=== PATIENT | female | born 1965 | race Caucasian/White ===

== ENCOUNTER 2019-10-30 11:37 | Emergency (ER) | payer OTHER, SELFPAY ==
--- NOTE | ~2019-10-30 | XR_ITS ---
XR chest 1V portable DATE: 10/30/2019 12:34 INDICATION: Lower extremity swelling TECHNIQUE: Portable upright AP chest on 10/30/2019 at 1225 hours COMPARISON: None FINDINGS: Normal heart size. No hilar or mediastinal enlargement. Bilateral hyperinflation. No pulmon dhiraj infiltrate or consolidation, pleural effusion or pulmonary vascular congestion or pneumothorax. Diffuse osteopenia IMPRESSION: Bilateral hyperinflation; no active cardiopulmonary disease Reviewed, dictated and finalized at location B. [employer]
[2019-10-30 11:38] VITALS: BP 114/62; PULSE 83; RESP 18; TEMP 36.3; O2SAT 100
[2019-10-30 12:46] LABS: Basophils Absolute Auto 0.1 K/mm3 (0.0-0.1); Basophils Percent Auto 0.9 % (0.2-1.2); Eosinophils Absolute Auto 0.2 K/mm3 (0-0.3); Hematocrit 38.9 % (37.0-47.0); Hemoglobin 12.7 g/dL (12.0-15.0); Immature Granulocyte Absolute 0.02 K/mm3 (0.00-0.031); Immature Granulocyte Percent A 0.3 % (0-0.5); Lymphocytes Absolute Auto 2.48 K/mm3 (0.9-3.2); Lymphocytes Percent Auto 35.5 % (18.3-44.2); Mean Corpuscular HGB Conc 32.6 g/dl (32-36); Mean Corpuscular Hemoglobin 30.5 pg (26-34); Mean Corpuscular Volume 93.3 fl (80-100); Mean Platelet Volume 10.4 fl (7.4-10.4); Monocytes Absolute Auto 0.5 K/mm3 (0.1-0.6); Monocytes Percent Auto 6.4 % (2.6-8.5); Neutrophils Absolute Auto 3.8 K/mm3 (1.3-6.7); Neutrophils Percent Auto 53.9 % (45.5-73.1); Platelet Count Result 343 k/mm3 (150-375); Red Blood Count 4.17 M/mm3 (4.2-5.4); Red Cell Distribution Width 13.2 % (11.5-14.5)
[2019-10-30 12:57] LABS: Alanine Aminotransferase 13 U/L (4-35); Albumin Level 4.5 g/dL (3.5-5.1); Alkaline Phosphatase 130 U/L (38-126); Aspartate Amino Transferase 18 U/L (14-36); Bilirubin,Total 0.2 mg/dL (0.2-1.3); Blood Urea Nitrogen 10 mg/dL (7-17); Calcium 9.5 mg/dL (8.4-10.2); Carbon Dioxide 25 mmol/L (22-30); Chloride 102 mmol/L (98-107); Estimated CRCL calculation 62 ml/min; Estimated Glomerular Filt Rate > 60; Glucose 90 mg/dL (65-105); Potassium 3.8 mmol/L (3.4-5.0); Sodium 137 mmol/L (137-145)
[2019-10-30 13:06] LABS: NT Pro B Type Natriuretic Pept 250 PG/ML (5-100)
[2019-10-30] MEDS: KETOROLAC (*BKC) 60 MG/2 ML VIAL 30 MG IM (13:30)
--- NOTE | 2019-10-30 14:21 | ED.EXTPRO ---
HPI - Extremity Problem General Chief complaint: Extremity Problem,Nontraumatic Stated complaint: feet swollen Time Seen by Provider: 10/30/19 12:14 Source: patient Mode of arrival: ambulatory Limitations: no limitations History of Present Illness HPI Narrative: Patient presents with chief complaint of bilateral intermittent lower leg swelling over the past 3 weeks. Patient states that she also feels a burning sensation in her legs and feet. Patient reports she has fibromyalgia and neuropathy in her lower extremities. Patient states her father is on hospice so she has been under a lot of stress in the hospital with him the past few days. Patient states she has been prescribed duloxetine but has not noticed an improvement in her neuropathic discomfort. Patient states she needs something to help with the pain. Patient denies chest pain or dyspnea. Patient smokes cigarettes and marijuana daily. Patient denies other recreational drug use. Related Data Home Medications Medication Instructions Recorded Confirmed atorvastatin 10/30/19 duloxetine mg PO 10/30/19 duloxetine mg PO 10/30/19 omeprazole 10/30/19 quetiapine 10/30/19 Allergies Allergy/AdvReac Type Severity Reaction Status Date / Time Sulfa (Sulfonamide Allergy Unknown Unverified 02/22/17 19:31 Antibiotics) Review of Systems Review of Systems: Narrative: CONSTITUTIONAL: Denies fever, chills, or sweats. EYES: Denies visual changes, redness, or discharge. ENT: Denies rhinorrhea, congestion, sore throat, or otalgia. CARDIOVASCULAR: Denies chest pain, palpitations, or edema. RESPIRATORY: Denies cough or dyspnea. GASTROINTESTINAL: Denies abdominal pain, nausea, vomiting, or diarrhea. GENITOURINARY: Denies dysuria or hematuria. SKIN: Denies rash or itching. MUSCULOSKELETAL: Reports edema and lower extremity pain denies back pain, joint pain, or myalgia. NEUROLOGIC: Denies headache, numbness, dizziness, or weakness. PSYCHIATRIC: Denies anxiety or depression. Exam Narrative: Exam Narrative: GENERAL: Well-appearing, well-nourished, and in no acute distress. HEAD: Normocephalic, atraumatic. EYES: PERRLA and EOMI. ENT: Nares clear, no rhinorrhea or epistaxis. Mucous membranes moist. Oropharynx without tonsillar hypertrophy exudate or other lesions. Bilateral TMs pearly mercer nonbulging NECK: Supple. No adenopathy or masses. No carotid bruits or JVD CHEST: Clear to auscultation. No respiratory distress. No wheezes rales or rhonchi HEART: Regular rate and rhythm. No murmur heard. Normal peripheral pulses. EXTREMITIES: Normal range of motion. Minimal edema noted bilaterally to feet.feet diffusely tender to palpation. There is no erythema, ecchymosis, pitting. SKIN: Warm, dry, no rash. NEURO: No focal deficits. Alert and oriented x3. PSYCH: Normal mood and affect. Course Vital Signs Vital signs: Vital Signs Temperature 97.3 F L 10/30/19 11:38 Pulse Rate 83 10/30/19 11:38 Respiratory Rate 18 10/30/19 11:38 Blood Pressure 114/62 10/30/19 11:38 Pulse Oximetry 100 10/30/19 11:38 Temperature 97.3 F L 10/30/19 11:38 Pulse Rate 83 10/30/19 11:38 Respiratory Rate 18 10/30/19 11:38 Blood Pressure 114/62 10/30/19 11:38 Pulse Oximetry 100 10/30/19 11:38 MDM - Extremity (Nontraumatic) MDM Narrative Medical decision making narrative: Patient's x-ray and physical exam does not point to acute CHF. Patient given Toradol for pain control. Patient is taking duloxetine for neuropathic pain instructed her to discuss with her primary care provider alternate chronic pain medication options. Patient instructed to wear compression stockings and elevate extremities. Patient verbalized understanding agreement states that she is ready to be discharged home at this time as she would like to go back to see her father. Lab Data Result diagrams: 10/30/19 12:35 10/30/19 12:36 Labs: Lab Results 10/30/19 10/30/19
== END 2019-10-30 14:35 | disposition home or self-care (01) ==
PROVIDERS: Physician Assistant; Emergency Provider Emergency Medicine
DX: R60.0 Localized edema (principal); G62.9 Polyneuropathy, unspecified; M79.7 Fibromyalgia
CPT/HCPCS: 36415; 71045; 80053; 83880; 85025; 96372; 99283; J1885

== ENCOUNTER 2020-09-03 12:12 | Emergency (ER) | payer OTHER, SELFPAY ==
--- NOTE | ~2020-09-03 | CT_ITS ---
EXAMINATION: CT abdomen pelvis w con DATE: 09/03/2020 14:43 INDICATION: Abdominal and epigastric pain, nausea, vomiting and diarrhea TECHNIQUE: Computed tomography (CT) of the abdomen and pelvis was performed with 100 mL Omnipaque-350 intravenous contrast. Automated exposure control and iterative reconstruction technique were employe d. The dose-length product was 216.36 mGy-cm. COMPARISON: None FINDINGS: Lung bases are clear. Heart size is normal. No pericardial or pleural effusion. Mild wall thickening at the gastric antrum which could be due to incomplete distention, gastritis or peptic ulcer disease. There is no surrounding inflammatory stranding. 1.3 cm cyst in the left hepatic lobe. Focal hepatic steatosis at the ligamentum teres. Small region of minimal wall thickening at the fundus of the gallb ladder most likely focal adenomyomatosis. Spleen, pancreas, bilateral adrenal glands and kidneys are normal. Normal appendix. No bowel obstruction. Bladder and anteverted uterus are normal. No free intr aperitoneal gas or fluid. No pathologically enlarged abdominal or pelvic lymphadenopathy. There is ca lcified atherosclerosis of the aorta and many of the other arteries. Bone island at the left superior pubic ramus. IMPRESSION: 1. Mild wall thickening at the gastric antrum which could be due to underdistention, gastritis or pep tic ulcer disease. Reviewed, dictated and finalized at location A. [employer] IMPRESSION: 1. Mild wall thickening at the gastric antrum which could be due to underdisten tion, gastritis or peptic ulcer disease.
[2020-09-03 12:15] VITALS: BP 104/39; PULSE 83; RESP 18; TEMP 36.8; O2SAT 100
[2020-09-03 12:55] LABS: Basophils Percent Auto 0.4 % (0.2-1.2); Eosinophils Percent Auto 0.1 % (0-4.4); Hematocrit 47.3 % (37.0-47.0); Hemoglobin 15.7 g/dL (12.0-15.0); Immature Granulocyte Absolute 0.03 K/mm3 (0.00-0.031); Immature Granulocyte Percent A 0.3 % (0-0.5); Lymphocytes Absolute Auto 1.47 K/mm3 (0.9-3.2); Lymphocytes Percent Auto 14.6 % (18.3-44.2); Mean Corpuscular HGB Conc 33.2 g/dl (32-36); Mean Corpuscular Hemoglobin 30.5 pg (26-34); Mean Platelet Volume 10.6 fl (7.4-10.4); Monocytes Absolute Auto 0.2 K/mm3 (0.1-0.6); Monocytes Percent Auto 2.2 % (2.6-8.5); Neutrophils Absolute Auto 8.3 K/mm3 (1.3-6.7); Neutrophils Percent Auto 82.4 % (45.5-73.1); Platelet Count Result 345 k/mm3 (150-375); Red Blood Count 5.14 M/mm3 (4.2-5.4); Red Cell Distribution Width 13.2 % (11.5-14.5); White Blood Count 10.1 K/mm3 (4.5-10.0)
[2020-09-03 12:59] LABS: Add Urine Microscopic? YES; Appearance Urine Clear (Clear); Bilirubin Urine 1+ (Negative); Blood Urine Negative (Negative); Color Urine Amber (Yellow); Glucose Urine UA Negative (Negative); Hyaline Casts Urine 15-19 /lpf; Ketones Urine Trace mg/dL (Negative); Leukocyte Esterase Ur 1+ LEU/UL (Negative); Mucus Urine Heavy /lpf; Nitrate Urine Negative (Negative); Protein Urine 2+ mg/dL (Negative); Specific Grav Ur 1.021 (1.001-1.035); Squamous Epithelial Cell Urine Many /hpf (Few); WBC Urine 0-3 /hpf
[2020-09-03 13:06] LABS: Alanine Aminotransferase 18 U/L (4-35); Albumin Level 4.7 g/dL (3.5-5.1); Alkaline Phosphatase 181 U/L (38-126); Anion Gap 8 mmol/L (8-16); Aspartate Amino Transferase 27 U/L (14-36); Bilirubin,Total 0.4 mg/dL (0.2-1.3); Blood Urea Nitrogen 10 mg/dL (7-17); Calcium 9.9 mg/dL (8.4-10.2); Carbon Dioxide 29 mmol/L (22-30); Chloride 103 mmol/L (98-107); Estimated CRCL calculation 52 ml/min; Estimated Glomerular Filt Rate > 60; Glucose 129 mg/dL (65-105); Lipase 58 U/L (23-300); Potassium 3.9 mmol/L (3.4-5.0); Sodium 140 mmol/L (137-145)
--- NOTE | 2020-09-03 13:26 | ED.NAVMDI ---
HPI - Nausea/Vomiting/Diarrhea General Chief complaint: Nausea/Vomiting/Diarrhea Stated complaint: vomiting and diarrhea Time Seen by Provider: 09/03/20 13:25 Source: patient Mode of arrival: ambulatory Limitations: no limitations History of Present Illness HPI Narrative: Patient is a 55-year-old female with a history of peptic ulcer disease who presents for evaluation of abdominal pain. Abdominal pain is located in the epigastrium, associated with vomiting that has some blood present in it. Pain is sharp, burning in nature. Patient denies fever, chills, shortness of breath. Mild rhinorrhea and cough over the past several weeks. No diarrhea or dark or tarry stools. Patient has not had any issues with her peptic ulcers in quite some time. She does not currently follow with a direct support specialist. Related Data Home Medications Medication Instructions Recorded Confirmed atorvastatin 10/30/19 duloxetine mg PO 10/30/19 duloxetine mg PO 10/30/19 omeprazole 10/30/19 quetiapine 10/30/19 clonazepam 09/03/20 09/03/20 Allergies Allergy/AdvReac Type Severity Reaction Status Date / Time Sulfa (Sulfonamide Allergy Unknown Unknown Verified 09/03/20 15:17 Antibiotics) Review of Systems Review of Systems: Narrative: CONSTITUTIONAL: Denies fever, chills, or sweats. ENT: Reports mild rhinorrhea and congestion CARDIOVASCULAR: Denies chest pain, palpitations, or edema. RESPIRATORY: Reports dry cough without shortness of breath GASTROINTESTINAL: Reports upper abdominal pain, nausea and vomiting without diarrhea. GENITOURINARY: Denies dysuria or hematuria. SKIN: Denies rash or itching. MUSCULOSKELETAL: Denies back pain, joint pain, or myalgia. NEUROLOGIC: Denies headache, numbness, or weakness. [facility] Past Medical History Medical History Acid reflux Arthritis Depression Fibromyalgia Hyperlipidemia Peptic ulcer disease Rheumatoid arthritis Surgical History Surgical History (Updated 09/03/20 @ 14:19 by Anna Miller MD) H/O section Social History Social History (Updated 09/03/20 @ 14:20 by Anna Miller MD) Smoking status: Current every day smoker Tobacco type: cigarettes Alcohol intake: never Substance use: current Substance use type: marijuana Gender identity (if verbalized by the patient): Female Exam Narrative: Exam Narrative: GENERAL: Awake, alert, conversant, mildly uncomfortable appearing HEAD: Normocephalic, atraumatic. EYES: PERRLA and EOMI. ENT: Nares clear, no rhinorrhea or epistaxis. Mucous membranes dry. NECK: Supple. CHEST: No respiratory distress, breathing even and non labored HEART: Regular rate, sinus rhythm ABDOMEN:Non distended, mild tenderness in the epigastrium without rebound, rigidity or guarding, no other tenderness noted on exam EXTREMITIES: Normal range of motion. No edema. SKIN: Warm, dry, no rash. NEURO:No focal deficits. Alert and oriented x3 Course Vital Signs Vital signs: Vital Signs Temperature 36.8 C 09/03/20 12:15 Pulse Rate 83 09/03/20 12:15 Respiratory Rate 18 09/03/20 12:15 Blood Pressure 104/39 L 09/03/20 12:15 Pulse Oximetry 100 09/03/20 12:15 Temperature 36.8 C 09/03/20 12:15 Pulse Rate 83 09/03/20 12:15 Respiratory Rate 18 09/03/20 12:15 Blood Pressure 104/39 L 09/03/20 12:15 Pulse Oximetry 100 09/03/20 12:15 MDM - Nausea/Vomiting/Diarrhea MDM Narrative Medical decision making narrative: Patient presented for evaluation of upper abdominal pain. He has a history of peptic ulcer disease, she states that this seems similar. She appears slightly dehydrated. Vital signs stable, ABCs intact. Laboratory results notable for hemoconcentration, no severe leukocytosis or severe anemia that be suggestive of gross hemorrhagic GI bleed. Patient with hypokalemia which were able to replenish orally following ministration of IV fluids and antie
[2020-09-03] MEDS: SODIUM CHLORIDE 0.9% IV 1,000 ML 999 ML IV CONT ×2 (14:52)
[2020-09-03] MEDS: MORPHINE SULFATE (*CRX) 4 MG/ML INJ IV PUSH (14:52)
[2020-09-03] MEDS: METOCLOPRAMIDE HCL INJ 10 MG/2 ML VIAL IV PUSH (14:52)
[2020-09-03 16:04] VITALS: BP 118/68; PULSE 78; RESP 16; O2SAT 97
== END 2020-09-03 16:05 | disposition home or self-care (01) ==
PROVIDERS: Emergency Provider Emergency Medicine
DX: K27.9 Peptic ulcer, site unspecified, unspecified as acute or chronic, without hemorrhage or perforation (principal); E86.0 Dehydration; E87.6 Hypokalemia; K21.9 Gastro-esophageal reflux disease without esophagitis; M19.90 Unspecified osteoarthritis, unspecified site; M79.7 Fibromyalgia; F32.9 Major depressive disorder, single episode, unspecified; E78.5 Hyperlipidemia, unspecified; M06.80 Other specified rheumatoid arthritis, unspecified site; F17.210 Nicotine dependence, cigarettes, uncomplicated
CPT/HCPCS: 36415; 74177; 80053; 81001; 81025; 83690; 85025; 96374; 96375; 99284; J2270; J2765; J7030; Q9967

== ENCOUNTER → 2021-12-15 01:33 | Outpatient (CLI) | payer OTHER, SELFPAY ==
[2021-12-15 11:55] LABS: SARS-CoV-2 RNA PCR Negative
== END ==
PROVIDERS: PCP Nurse Practitioner Family; Visit Provider Nurse Practitioner Family
DX: R11.2 Nausea with vomiting, unspecified (principal); Z20.822 Contact with and (suspected) exposure to COVID-19
CPT/HCPCS: C9803; U0003; U0005

== ENCOUNTER 2021-12-22 08:28 | Outpatient (CLI) | payer OTHER, SELFPAY ==
--- NOTE | ~2021-12-22 | MR_ITS ---
EXAMINATION: MR brain/brain stem wo/w con EXAM DATE: 12/22/2021 09:28 INDICATION: Memory Impairment;Other Amnesia;Repeated Falls;Dizziness. TECHNIQUE: Magnetic resonance imaging (MRI) of the brain/brain stem obtained without contrast. Sagit win T1, axial diffusion, gradient echo (T2*), T1, T2, FLAIR sequences obtained. Patient was then inj ected with 10 cc intravenous Multihance contrast. Axial and coronal postcontrast T1 weighted sequence s obtained. There is no prior study for comparison. FINDINGS: There are no areas of restricted diffusion to suggest acute infarction. There is no acute hemorrhage seen on the T2*, a hemosiderin sensitive sequence. Minimal scattered microangiopathy. No i ntraparenchymal brain mass. The ventricles are normal in size. There are no extra-axial collections. Flow voids are seen in the cerebral arteries on the T2-weighted sequences consistent with their exp ected patency. The orbits are unremarkable. Soft tissue is unremarkable. There are no areas of ab normal enhancement on the postcontrast images. IMPRESSION: Minimal microangiopathy. Otherwise unremarkable exam. Reviewed, dictated and finalized at location B.
[2021-12-22 09:06] LABS: Estimated Glomerular Filt Rate > 60
== END 2021-12-22 08:29 | disposition home or self-care (01) ==
LOC: ANHIMG 08:36
PROVIDERS: PCP Nurse Practitioner Family; Visit Provider Nurse Practitioner Family
DX: R42 Dizziness and giddiness (principal); R29.6 Repeated falls; R41.3 Other amnesia
CPT/HCPCS: 70553; A9577

== ENCOUNTER 2022-01-05 17:28 | Emergency (ER) | payer OTHER, SELFPAY ==
--- NOTE | ~2022-01-05 | XR_ITS ---
EXAMINATION: XR chest 1V portable Exam Date/Time: 01/05/2022 17:50 CDT CLINICAL HISTORY: weakness, LOW BP, NO CARDIAC HX, CURRENT SMOKER Comparison: 10/30/2019. RESULT: Lines, tubes, and devices: None. Lungs and pleura: Hyperinflation. Apical pleural scarring. Diffuse reticular pattern extending to th e periphery. Cardiomediastinal silhouette: Stable cardiomediastinal silhouette. Other: No acute osseous or upper abdominal finding. IMPRESSION: Likely emphysematous change. Possible mild interstitial edema versus early senescent/emphysematous ch jacob. Reviewed, dictated and finalized at location K. IMPRESSION: Likely emphysematous change. Possible mild interstitial edema versus early johann scent/emphysematous change.
[2022-01-05 17:32] VITALS: BP 70/47; PULSE 92; RESP 15; TEMP 36.6; O2SAT 92
--- NOTE | 2022-01-05 17:34 | ED.GENADULT ---
HPI - General Adult General Chief complaint: Unspecified Stated complaint: I'm very dehydrated Time Seen by Provider: 01/05/22 17:47 History of Present Illness HPI narrative: 56-year-old female presents the emergency room for evaluation for hypotension. Patient states that she received a phone call from her PCPs office today and was told that she is dehydrated. Patient's states that she has not had urine or blood work drawn recently, and is confused as to how she became patient denies any new medications. Patient denies any obvious hematochezia. Patient denies any nausea or vomiting or diarrhea. Patient denies any abdominal pain. Patient does have a history of peptic ulcer disease, for which she takes an unknown stomach pill . Patient denies lightheadedness or dizziness. Patient states she is able to tolerate fluids and solids without difficulty. Related Data Home Medications Medication Instructions Recorded Confirmed atorvastatin 10/30/19 duloxetine mg PO 10/30/19 duloxetine mg PO 10/30/19 omeprazole 10/30/19 quetiapine 10/30/19 clonazepam 09/03/20 09/03/20 Allergies Allergy/AdvReac Type Severity Reaction Status Date / Time Sulfa (Sulfonamide Allergy Unknown Unknown Verified 09/03/20 15:17 Antibiotics) Review of Systems Review of Systems: CONSTITUTIONAL: Denies fever, chills, or sweats. EYES: Denies visual changes, redness, or discharge. ENT: Denies rhinorrhea, congestion, sore throat, or otalgia. CARDIOVASCULAR: Denies chest pain, palpitations, or edema. RESPIRATORY: Denies cough or dyspnea. GASTROINTESTINAL: Denies abdominal pain, nausea, vomiting, or diarrhea. GENITOURINARY: Denies dysuria or hematuria. SKIN: Denies rash or itching. MUSCULOSKELETAL: Denies back pain, joint pain, or myalgia. NEUROLOGIC: Denies headache, numbness, dizziness, or weakness. PSYCHIATRIC: Denies anxiety or depression. [facility] Past Medical History Medical History Acid reflux Arthritis Depression Fibromyalgia Hyperlipidemia Peptic ulcer disease Rheumatoid arthritis Surgical History Surgical History H/O section Social History Social History Smoking status: Current every day smoker Tobacco type: cigarettes Alcohol intake: never Substance use: current Substance use type: marijuana Gender identity (if verbalized by the patient): Female Exam Narrative: GENERAL: Well-appearing, well-nourished, and in no acute distress. HEAD: Normocephalic, atraumatic. EYES: PERRLA and EOMI. ENT: Mucous membranes moist. CHEST: Clear to auscultation. No respiratory distress. No wheezes rales or rhonchi HEART: Regular rate and rhythm. No murmur heard. Normal peripheral pulses. ABDOMEN: Soft, nontender, nondistended, normal active bowel sounds. EXTREMITIES: Normal range of motion. No edema. SKIN: Warm, dry, no rash. NEURO: No focal deficits. Alert and oriented x3. PSYCH: Normal mood and affect. Medical Decision Making MDM Narrative Medical decision making narrative: 56-year-old female presents emergency room for evaluation for possible dehydration. Patient states that her physician called her and stated that she was dehydrated despite drawing any labs or obtaining a urine. Her CMP and urine was unremarkable. CBC shows B12 and possible iron deficiency anemia. Patient states she received a B12 injection every 3 weeks so she is aware of this. Blood pressures have been stable in the 90s over 60s, heart rate stable in the 80s. Patient has remained alert and oriented x3 her entire ER duration. Will have patient follow-up with primary care provider. ECG Data EKG #1: ECG completion date: 01/05/22 ECG completion time: 19:02 EKG Interpretation: not applicable, normal rate, sinus rhythm, no ST changes, normal QRS and normal QT D
[2022-01-05 17:36] VITALS: PULSE 92
--- NOTE | 2022-01-05 17:37 | ECG_ITS ---
Measurements Intervals [place] Rate: 82 P: 65 NM: 181 QRS: 90 QRSD: 84 T: 56 QT: 381 QTc: 446 Interpretive Statements SINUS RHYTHM WITH OCCASIONAL VENTRICULAR PREMATURE COMPLEXES POSSIBLE RIGHT VENTRICULAR CONDUCTION DELAY [RSR (QR) IN V1/V2] T-WAVE ABNORMALITY, CONSIDER ANTEROSEPTAL ISCHEMIA ABNORMAL ECG NO PREVIOUS ECG AVAILABLE FOR COMPARISON Electronically Signed On 01-06-2022 16:42:02 CDT by Vel Garcia M.D.
[2022-01-05] MEDS: SODIUM CHLORIDE 0.9% IV 1,000 ML 999 ML (17:57)
[2022-01-05 18:00] LABS: Basophils Absolute Auto 0.1 K/mm3 (0.0-0.1); Eosinophils Absolute Auto 0.3 K/mm3 (0-0.3); Eosinophils Percent Auto 2.7 % (0-4.4); Hematocrit 34.3 % (37.0-47.0); Hemoglobin 11.6 g/dL (12.0-15.0); Immature Granulocyte Absolute 0.04 K/mm3 (0.00-0.031); Immature Granulocyte Percent A 0.4 % (0-0.5); Lymphocytes Absolute Auto 5.06 K/mm3 (0.9-3.2); Lymphocytes Percent Auto 46.3 % (18.3-44.2); Mean Corpuscular HGB Conc 33.8 g/dl (32-36); Mean Corpuscular Hemoglobin 34.6 pg (26-34); Mean Corpuscular Volume 102.4 fl (80-100); Monocytes Absolute Auto 0.8 K/mm3 (0.1-0.6); Monocytes Percent Auto 7.1 % (2.6-8.5); Neutrophils Absolute Auto 4.7 K/mm3 (1.3-6.7); Neutrophils Percent Auto 42.5 % (45.5-73.1); Platelet Count Result 297 k/mm3 (150-375); Red Blood Count 3.35 M/mm3 (4.2-5.4); Red Cell Distribution Width 18.5 % (11.5-14.5); White Blood Count 10.9 K/mm3 (4.5-10.0)
[2022-01-05 18:04] VITALS: BP 95/67; PULSE 76; RESP 16; O2SAT 99
[2022-01-05 18:12] LABS: Alanine Aminotransferase 11 U/L (4-35); Albumin Level 3.5 g/dL (3.5-5.1); Alkaline Phosphatase 117 U/L (38-126); Anion Gap 5 mmol/L (8-16); Aspartate Amino Transferase 24 U/L (14-36); Bilirubin,Total 0.4 mg/dL (0.2-1.3); Blood Urea Nitrogen 11 mg/dL (7-17); Calcium 8.1 mg/dL (8.4-10.2); Carbon Dioxide 23 mmol/L (22-30); Chloride 106 mmol/L (98-107); Estimated CRCL calculation 54 ml/min; Estimated Glomerular Filt Rate > 60; Glucose 84 mg/dL (65-110); Potassium 3.8 mmol/L (3.4-5.0); Sodium 134 mmol/L (137-145)
[2022-01-05 18:54] LABS: Appearance Urine Clear (Clear); Bilirubin Urine Negative (Negative); Blood Urine Negative (Negative); Color Urine Yellow (Yellow); Glucose Urine UA Negative (Negative); Ketones Urine Negative (Negative); Leukocyte Esterase Ur Trace LEU/UL (Negative); Nitrate Urine Negative (Negative); Protein Urine Negative (Negative); Urobilinogen Urine 0.2 mg/dL (<2.0); pH Urine 5.5 (5.0-9.0)
[2022-01-05 19:09] VITALS: BP 101/68; PULSE 78; RESP 16; O2SAT 98
[2022-01-05 19:21] LABS: Bacteria Urine Trace /hpf; Mucus Urine Rare /lpf; Squamous Epithelial Cell Urine Moderate /hpf (Few)
[2022-01-05 19:24] LABS: Add Urine Microscopic? YES
[2022-01-05 19:35] VITALS: BP 98/67; PULSE 81; RESP 18; O2SAT 98
== END 2022-01-05 19:42 | disposition home or self-care (01) ==
PROVIDERS: Emergency Medicine; Emergency Provider Nurse Practitioner Family; PCP Nurse Practitioner Family
DX: D52.9 Folate deficiency anemia, unspecified (principal); D50.8 Other iron deficiency anemias; M06.9 Rheumatoid arthritis, unspecified; K21.9 Gastro-esophageal reflux disease without esophagitis; M19.90 Unspecified osteoarthritis, unspecified site; M79.7 Fibromyalgia; E78.5 Hyperlipidemia, unspecified; Z87.11 Personal history of peptic ulcer disease; F17.210 Nicotine dependence, cigarettes, uncomplicated; R94.31 Abnormal electrocardiogram [ECG] [EKG]
CPT/HCPCS: 36415; 71045; 80053; 81001; 85025; 93005; 96360; 99283; J7030

== ENCOUNTER 2023-06-16 10:16 | Emergency (ER) | payer OTHER, SELFPAY ==
--- NOTE | ~2023-06-16 | XR_ITS ---
EXAMINATION: XR finger 3rd LT min 2V INDICATION: Left third finger pain TECHNIQUE: Three views of the left third finger are obtained. COMPARISON: 06/14/2015 FINDINGS: Bone alignment is normal. No fracture is identified. There is mild osteoarthritis of the in terphalangeal joints. There is soft tissue swelling of the finger. IMPRESSION: 1. Soft tissue swelling without acute osseous abnormality identified. Reviewed, dictated and finalized at location B.
[2023-06-16 10:29] VITALS: BP 107/66; PULSE 99; RESP 14; TEMP 36.1; O2SAT 97
[2023-06-16 10:35] VITALS: BP 107/66; PULSE 99; RESP 14; TEMP 36.1; O2SAT 97
--- NOTE | 2023-06-16 10:46 | ED.UPPEXIN ---
HPI - Extremity Injury (Upper) General Chief Complaint: Extremity Injury, Upper Stated Complaint: left finger injury Source: patient Mode of arrival: ambulatory Limitations: no limitations History of Present Illness HPI narrative: 4-year-old female presents for complaint of left middle finger pain and swelling after injury 2 nights ago. She states she fell out of bed but is unsure mechanism of injury. She reports slightly limited range of motion due to the swelling. Patient was able to remove the ring from that finger using about or this morning. Denies numbness, tingling or weakness. Related Data Home Medications Medication Instructions Recorded Confirmed atorvastatin 20 mg tablet 10/30/19 duloxetine 30 mg capsule,delayed mg PO 10/30/19 release duloxetine 60 mg capsule,delayed mg PO 10/30/19 release omeprazole 20 mg capsule,delayed 10/30/19 release quetiapine 200 mg tablet 10/30/19 clonazepam 0.5 mg tablet 09/03/20 09/03/20 Allergies Allergy/AdvReac Type Severity Reaction Status Date / Time Sulfa (Sulfonamide Allergy Unknown Unknown Verified 09/03/20 15:17 Antibiotics) Review of Systems Review of Systems: CONSTITUTIONAL: Denies body aches, fever, chills EYES: Denies visual changes ENT: Denies rhinorrhea, congestion CARDIOVASCULAR: Denies chest pain, palpitations, or edema. RESPIRATORY: Denies cough or dyspnea. GASTROINTESTINAL: Denies abdominal pain, nausea, vomiting, or diarrhea. SKIN: Denies rash, itching, or wounds. MUSCULOSKELETAL: Reports left finger pain Denies back pain or myalgia. NEUROLOGIC: Denies headache, numbness, tingling, or weakness. All systems reviewed & are unremarkable except as noted in HPI and below PMFSH Past Medical History Medical History Acid reflux Arthritis Depression Fibromyalgia Hyperlipidemia Peptic ulcer disease Rheumatoid arthritis Surgical History Surgical History H/O section Social History Social History Smoking status: Current every day smoker Tobacco type: cigarettes Alcohol intake: never Substance use: current Substance use type: marijuana Gender identity (if verbalized by the patient): Female Comments At time of signature, I have reviewed and agree with nursing past medical, surgical, social and family history unless otherwise noted. Please see nursing chart for further information. There is no relevant family history pertinent to the presenting complaint Exam Narrative: GENERAL: Well-appearing, and in no acute distress. CHEST: Speaks in full sentences. No respiratory distress. HEART: Regular rate and rhythm. Normal and equal peripheral pulses. EXTREMITIES: Left 3rd digit PIP with mild swelling and bruising, digit has normal strength and sensation, slightly limited range of motion of digit endorses pain with movement. Mild tenderness to PIP. No open wounds, or obvious deformity; alignment normal, pulse palpable and equal bilaterally, skin warm, dry, pink. Capillary refill less than 3 seconds. SKIN: Warm, dry, no rash. NEURO: Alert and oriented x3. PSYCH: Normal mood and affect Course Course Emergency Course: Patient is aware of diagnosis, understands and agrees to treatment plan. Anticipatory guidance given. Patient agrees to follow-up as directed and is aware of reasons to seek care at the emergency department. Portions of this record may have been created with voice recognition software Level of Care: Express Care Visit Vital Signs Vital signs: Vital Signs Temperature 96.9 F L 06/16/23 10:29 Pulse Rate 99 06/16/23 10:29 Respiratory Rate 14 06/16/23 10:29 Blood Pressure 107/66 06/16/23 10:29 Pulse Oximetry 97 06/16/23 10:29 Oxygen Delivery Room Air 06/16/23 10:29 Temperature 96.9 F L
== END 2023-06-16 10:58 | disposition home or self-care (01) ==
PROVIDERS: Emergency Provider Nurse Practitioner Family; PCP Nurse Practitioner Family
DX: S63.613A Unspecified sprain of left middle finger, initial encounter (principal); W06.XXXA Fall from bed, initial encounter; F17.210 Nicotine dependence, cigarettes, uncomplicated; K21.9 Gastro-esophageal reflux disease without esophagitis; M19.90 Unspecified osteoarthritis, unspecified site; M79.7 Fibromyalgia; E78.5 Hyperlipidemia, unspecified; M06.9 Rheumatoid arthritis, unspecified; F12.90 Cannabis use, unspecified, uncomplicated
CPT/HCPCS: 73140; 99213; G0463

== ENCOUNTER 2024-08-24 21:51 | Inpatient (IN) | payer OTHER, SELFPAY ==
--- NOTE | ~2024-08-24 | XR_ITS ---
EXAMINATION: XR chest 1V portable DATE: 08/24/2024 22:47 INDICATION: Altered mental status. TECHNIQUE: A single frontal view of the chest was obtained on 2 radiographs. COMPARISON: Chest view 01/05/2022, chest CT 08/25/2024 FINDINGS: There is a diffuse interstitial pattern, consistent with mild pulmonary edema. No pleural e ffusion or pneumothorax. The heart size is normal. IMPRESSION: 1. Mild pulmonary edema. Reviewed, dictated and finalized at location A. ER SIFTER MACHINE IMPRESSION: 1. Mild pulmonary edema.
--- NOTE | ~2024-08-24 | XR_ITS ---
EXAMINATION: XR lumbar puncture diagnostic DATE: 08/26/2024 11:18 INDICATION: Altered mental status. TECHNIQUE: A timeout was performed to verify the patient's name, date of , and procedure to be performed. The skin overlying the L3-L4 level was prepped and draped in usual sterile fashion. Sub cutaneous 1% lidocaine was used for local anesthesia. A 20 gauge spinal needle was advanced under fl uoroscopic guidance. The needle was removed and the entry site was cleaned and dressed. There were n o immediate complications. Fluoroscopy exposure time was 0.0 minutes. The total number of images was 1. FINDINGS: Real-time fluoroscopy demonstrates the needle at the L3-L4 level. The opening pressure was 9 cm water (Normal range is variably defined as 6-20 cm water and up to 25 cm water in obese patients . Pressure >25 cm water is one of the modified Dandy criteria for idiopathic intracranial hypertensio n). 13 mL of clear, colorless fluid was collected in 4 tubes. IMPRESSION: 1. Successful fluoro-guided lumbar puncture. Reviewed, dictated and finalized at location A. H AND CLOCK REPAIRER
--- NOTE | ~2024-08-24 | CT_ITS ---
EXAMINATION: CT brain wo con DATE: 08/24/2024 23:13 INDICATION: Altered mental status. TECHNIQUE: Computed tomography (CT) of the head was performed without intravenous contrast. The mA wa s adjusted according to patient size. Iterative reconstruction technique was employed. The dose-lengt h product was 681.00 mGy-cm. COMPARISON: Brain MRI 12/22/2021 FINDINGS: There are scattered areas of low attenuation in the cerebral white matter. There is no intr acranial hemorrhage, acute infarction, or abnormal intracranial mass lesion. The ventricles are camacho l in size. The paranasal sinuses are clear. The orbits are normal. The mastoid air cells are normal. IMPRESSION: 1. Mild nonspecific cerebral white matter disease, which likely represents chronic small vessel ische roxana disease. Reviewed, dictated and finalized at location A. STAFF FITTER IMPRESSION: 1. Mild nonspecific cerebral white matter disease, which likely represents adapted physical education specialist brandon small vessel ischemic disease.
--- NOTE | ~2024-08-24 | US_ITS ---
EXAMINATION: US venous doppler [facility] DATE: 09/02/2024 15:28 INDICATION: edema . TECHNIQUE: Grayscale images without and with compression and Doppler images of the bilateral lower ex tremity veins were obtained. COMPARISON: None FINDINGS: The right common femoral vein, profunda (deep) femoral vein, femoral vein, popliteal vein, peroneal v ein, posterior tibial veins, gastrocnemius vein, and greater saphenous vein are patent. The left common femoral vein, profunda (deep) femoral vein, femoral vein, popliteal vein, peroneal v ein, posterior tibial veins, gastrocnemius vein, and greater saphenous vein are patent. IMPRESSION: Patent bilateral lower extremity veins. No evidence of deep venous thrombosis. Reviewed, dictated and finalized at location K. INSTRUCTIONAL ASSISTANT
--- NOTE | ~2024-08-24 | CT_ITS ---
EXAMINATION: CTA chest abdomen pelvis DATE: 08/25/2024 00:51 INDICATION: Shortness of breath. Non-ST elevation myocardial infarction. TECHNIQUE: Computed tomographic angiography (CTA) of the chest, abdomen, and pelvis was performed wit h 100 mL Omnipaque-350 intravenous contrast. Automated exposure control and iterative reconstruction technique were employed. The dose-length product was 349.50 mGy-cm. Maximum intensity projection 3D-r econstructions of the aorta and other arteries were constructed by the technologist on a separate wor kstation. COMPARISON: CT abdomen pelvis 09/03/20 FINDINGS: CHEST CTA: There is mild scarring at the lung apices. There is mild emphysema. There is widespread septal thicke christina in the lungs, consistent with pulmonary edema. There are small pleural effusions. There are nodu les in the thyroid measuring up to 6 mm, likely not clinically significant. The heart size is normal. There is a small pericardial effusion. The central pulmonary arteries are enlarged, consistent with pulmonary arterial hypertension. There is no pulmonary embolus. Aortic atherosclerosis is noted. The aorta is normal in caliber. No dissection. There is severe cervical spondylosis and mild thoracic spo ndylosis. ABDOMEN AND PELVIS CTA: There is a 10 mm cyst in the liver. The gallbladder, spleen, pancreas, and adrenal glands are normal. There is cortical thinning of the kidneys. There is wall thickening throughout the colon. There are multiple dilated loops of small bowel with mucosal hyperemia. There are no pathologically enlarged ly mph nodes. There is trace ascites. There is calcified atherosclerosis of the aorta and many of the ot her arteries. There is severe stenosis of right common iliac artery. There is moderate stenosis of ce liac axis and superior stenosis of inferior mesenteric artery. There is no significant stenosis of brewer perior mesenteric artery. There is moderate stenosis of the renal arteries. There is mild lumbar spon dylosis. IMPRESSION: 1. Mild pulmonary edema. 2. Small pleural effusions. 3. Mild emphysema. 4. Small pericardial effusion. 5. Enterocolitis. 6. Arterial occlusive disease. Reviewed, dictated and finalized at location A. LE HOME LOT UTILITY WORKER
--- NOTE | ~2024-08-24 | MR_ITS ---
EXAMINATION: MR brain/brain stem wo/w con DATE: 08/25/2024 12:20 INDICATION: Left hemiparesis. Altered mental status. TECHNIQUE: Magnetic resonance imaging (MRI) of the brain and brainstem was performed without and with 9 mL MultiHance intravenous contrast. COMPARISON: Brain MRI 12/22/2021, head CT 08/24/2024 FINDINGS: There are scattered areas of nonspecific increased T2-weighted signal intensity in the cere bral white matter and joseph. There is no intracranial hemorrhage, acute infarction, or abnormal intrac ranial mass lesion. The ventricles are normal in size. The orbits are normal. The paranasal sinuses a re clear. The mastoid air cells are normal. IMPRESSION: 1. Mild nonspecific cerebral white matter disease and pontine disease, which likely represents chroni c small vessel ischemic disease. Reviewed, dictated and finalized at location A. FIRST ASSIST IMPRESSION: 1. Mild nonspecific cerebral white matter disease and pontine disease, which eneida rosen represents chronic small vessel ischemic disease.
--- NOTE | ~2024-08-24 | XR_ITS ---
EXAMINATION: XR chest 1V portable DATE: 08/25/2024 01:42 INDICATION: Shortness of breath. TECHNIQUE: A single frontal view of the chest was obtained on 2 radiographs. COMPARISON: Chest single view 08/24/2024, chest CT 08/25/2024 FINDINGS: There are lucencies in the lungs, consistent with emphysema. There is mild scarring at the lung apices. There is a diffuse interstitial pattern in the lungs, consistent with mild pulmonary maira ma. No pleural effusion or pneumothorax. The heart size is normal. IMPRESSION: 1. Mild pulmonary edema. 2. Emphysema. Reviewed, dictated and finalized at location A. RIAL DISTRIBUTOR
[2024-08-24 21:49] VITALS: BP 199/108; PULSE 86; RESP 15; O2SAT 96
[2024-08-24 21:59] VITALS: BP 191/97; PULSE 90; RESP 16; TEMP 36.6; O2SAT 100
--- NOTE | 2024-08-24 22:02 | ECG_ITS ---
Test Date: 2024-08-24 22:18:32 Measurements Intervals [place] Rate: 83 P: 53 VT: 160 QRS: 81 QRSD: 70 T: 86 QT: 398 QTc: 469 Interpretive Statements SINUS RHYTHM POSSIBLE LEFT ATRIAL ENLARGEMENT [-0.1mV P-WAVE IN V1/V2] POSSIBLE RIGHT VENTRICULAR CONDUCTION DELAY [RSR (QR) IN V1/V2] SEPTAL MYOCARDIAL INFARCTION , OF INDETERMINATE AGE [40+ ms Q WAVE IN V1/V2] MODERATE T-WAVE ABNORMALITY, CONSIDER ANTERIOR ISCHEMIA [-0.1+ mV T-WAVE IN V3/V4] No previous ECG available for comparison Electronically Signed On 08-25-2024 12:06:47 [employer] by Uriel Fair M.D.
[2024-08-24 22:03] LABS: Glucose Point of Care 73 mg/dl (65-105)
[2024-08-24 22:04] VITALS: PULSE 86; O2SAT 100
--- NOTE | 2024-08-24 22:06 | ED_ITS ---
HPI - Altered Mental Status General Chief Complaint: Altered Mental Status Stated Complaint: ams History of Present Illness HPI narrative: 59-year-old female with a past medical history including bipolar depression and anxiety as well as COPD. Patient presents to the emergency department via EMS for mental status changes. Patient normally is awake alert oriented answers all questions and cooperates but the who called EMS noted that she has not been acting right since Monday of this week. EMS arrived and found the patient awake but not oriented and only answering with a ?yes. To all her questions. Patient presently on my initial assessment is awake and does nod yes or no to questions and I was able to get several words out of her that seems coherent and then she stopped answering questions at all. She is noted to be hypertensive but no her port history of hypertension and does not take any blood pressure medications. Her medications at bedside include multiple bottles of fluoxetine and clonazepam as well as Symbicort. No blood pressure medications, no other no ingestions or intoxicants. is not present for collateral formation at this time. Patient nods yes or no to questions and shakes her head no when asked about any headaches, chest pain, back pain, difficulty breathing or any weakness. She is noted to have dilated pupils and stiffened extremities. Related Data Home Medications Medication Instructions Recorded Confirmed atorvastatin 20 mg tablet 20 mg PO DAILY 10/30/19 08/25/24 duloxetine 60 mg capsule,delayed 60 mg PO Q12H 10/30/19 08/25/24 release clonazepam 0.5 mg tablet 0.5 mg PO Q12H PRN Anxiety 09/03/20 08/25/24 budesonide-formoterol HFA 160 2 puff inhalation Q12H 08/25/24 08/25/24 mcg-4.5 mcg/actuation aerosol inhaler (Symbicort) ergocalciferol (vitamin D2) 1,250 1,250 mcg PO WEEKLY 08/25/24 08/25/24 mcg (50,000 unit) capsule ferrous sulfate 325 mg (65 mg 325 mg PO DAILY 08/25/24 08/25/24 iron) tablet (FeroSul) fluoxetine 20 mg capsule 20 mg PO DAILY 08/25/24 08/25/24 gabapentin 600 mg tablet 600 mg PO TID 08/25/24 08/25/24 trazodone 50 mg tablet 50 mg PO DAILY 08/25/24 08/25/24 Allergies Allergy/AdvReac Type Severity Reaction Status Date / Time Sulfa (Sulfonamide Allergy Unknown Unknown Verified 09/03/20 15:17 Antibiotics) Review of Systems Review of Systems: As reviewed above in [facility] Past Medical History Medical History Acid reflux Arthritis Depression Fibromyalgia Hyperlipidemia Peptic ulcer disease Rheumatoid arthritis Surgical History Surgical History H/O section Family History Family History (Updated 08/25/24 @ 05:12 by Adriana Puentes RN) Other Unknown family medical history Social History Social History Smoking status: Current every day smoker Tobacco type: cigarettes Alcohol intake: never Substance use: current Substance use type: marijuana Gender identity (if verbalized by the patient): Female Exam Narrative: GENERAL: Altered, alert to her name and nods yes or no intermittently, follows commands easily, not any acute distress, nontoxic in appearance HEAD: [Normocephalic, atraumatic.] EYES: Dilated pupils at 5 mm, extraocular movements seem intact without any nystagmus or clonus ENT: Nares clear, no rhinorrhea or epistaxis. Mucous membranes moist. NECK: Supple. CHEST: [Clear to auscultation. No respiratory distress.] HEART: [Regular rate and rhythm]. No murmur heard. [Normal peripheral pulses.] ABDOMEN: [Soft, nondistended], [nontender], [No rigidity or guarding] EXTREMITIES: Extremities are stiff and do appreciate some rigidity with mo vements and seem to maintain their position when passively flexed or extended but no cogwheeling. SKIN: Warm, dry, no rash. No diaphoresis NEURO: Moves both arms and legs symmetrically, no ataxia, awake but not oriented aside from her name. Not able answer questions appropriately but does nod her head yes or no. Does have stiff and rigid extremities that nazario position when flexed or extended but no myoclonus or cogwheeling noted. PSYCH: Flat affect Course Vital Signs Vital signs: Vital Signs Pulse Rate 86 08/24/24 21:49 Respiratory Rate 15 08/24/24 21:49 Blood Pressure 199/108 H 08/24/24 21:49 Pulse Oximetry 96 08/24/24 21:49 Oxygen Delivery Room Air 08/24/24 21:49 Temperature 37.1 C 08/25/24 05:00 Pulse Rate 97 08/25/24 05:45 Respiratory Rate 25 H 08/25/24 05:00 Blood Pressure 168/84 H 08/25/24 05:45 Pulse Oximetry 95 08/25/24 05:00 Oxygen Delivery Nasal Cannula 08/25/24 04:17 Oxygen Flow Rate 5 08/25/24 04:17 MDM - Altered Mental Status MDM Narrative Medical decision making narrative: 59-year-old female with history of bipolar disorder and COPD. Here for altered mental status of unclear etiology or duration but potentially since Monday. On fluoxetine and no clonazepam based on her medications at bedside, they appear full aside from the clonazepam which only has 1 pill left, no reported ingestions or intoxicants per the who relayed this information to EMS but not present at bedside now. No reported trauma. Patient herself is alert to her name and does follow commands although her exam is concerning with some pupillary dilatation, rigidity in her extremities without clonus hypertension with a blood pressure in the 190s without any reported documentation or history of high blood pressure. She is not on any antihypertensive regimen. She is not diaphoretic or obvious intoxicated and breathing comfortably. Clear breath sounds, symmetric pulses. Neuro exam shows symmetric strength and sensation but again her limbs to feel slightly rigid without any cogwheeling. No ataxia. No clonus. No tachycardia, fever, hypoxia. Differential is very broad at this time but includes metabolic encephalopathy, toxic encephalopathy, intracranial process such as stroke or brain bleed, ingestion, overdose of her prescription medications, overdose or other substances, hypertensive encephalopathy, PRES syndrome, electrolyte disturbances or other process including potential infection such as UTI or pneumonia. Broad workup was ordered including a CT head, toxicological screenings, CBC, CMP, ammonia, urine drug screen, VBG, chest x-ray, urinalysis with straight catheterization. She was given a fluid bolus and 10 mg of hydralazine for her hypertension. Patient was frequent re-evaluated and had improvement in her initial mental status. Patient is now able to talk in coherent sentences but states that she is not sure was going on and she needs help. When asked about what she eats particular help with she is not able to provide me details, denies any focal complaints when asked. Her blood pressure is improved for the hydralazine at 160/98. Slightly tachycardic with a pulse 108. Still afebrile, still saturating well on room air. Workup started to return and she does have an elevated troponin of unclear etiology. Her initial EKG does have some deep Q- waves but no signs of acute ischemic event, Q-waves raise suspicion for previous infarct maybe even recently, but does not fully explain her mental status. Other blood work shows no leukocytosis but seems hemoconcentrated with a hemoglobin of 18.6. Coagulation panel within normal limits. Blood gas on my interpretation shows no concerning features of any acidosis or alkalemia and otherwise appears normal. Electrolytes show at elevated BUN of 44 but normal creatinine. No electrolyte deficiencies. Concerning for prerenal azotemia and dehydration consistent with her elevated hemoglobin and hemoconcentration. Patient was provide a 2nd fluid bolus here in the emergency department. Troponin of 0.138, repeat troponin pending, patient denies any active chest pain or shortness of breath but again is still altered he. Normal TSH. CT head on my interpretation shows no acute intracranial findings. Stat read also confirms no acute intracranial findings. Urinalysis shows proteinemia, blood in ketones but no infectious findings. Urine drug screen only positive for cannabinoids. CT angiography of her chest abdomen pelvis was ordered this time given her elevated troponin with no clear reason and the elevated blood pressure does raise suspicion for intrathoracic process. I was informed by nursing staff that patient started desaturating into the high 70s low 80s persistently and was placed on 4 L nasal cannula with improvement to 95%. Patient states she is feeling short of breath. Breath sounds are slightly coarse on repeat evaluation. CTA of the chest abdomen pelvis shows fluid overloaded state, no PE, dissection or aneurysms. CT of the abdomen and pelvis limited by motion but show some multifocal areas of potential colitis[place] [address] with no history of congestive heart failure. Troponin at 3hours slightly decreased but still elevated. No EKG evidence of acute ischemia. No changes from previous EKG. At this time given her altered mentation, fluid overload state causing hypoxia, NSTEMI, and no other obvious explanation I initiated a nicardipine infusion to titrate her blood pressure to 160 systolic which is a 20% reduction from her initial blood pressure to treat her for her presumtive diagnosis of hypertensive emergency with hypertensive heart failure and hypertensive encephalopathy. I discussed the case with both the municipal bond trader and the hospitalist over the phone. We would over patient's imaging studies, clinical examination findings, elevated troponins, altered mental status with no clear source aside from potentially being related to her blood pressure. Nicardipine drip running at this time, patient remained hemodynamically stable at this time and appropriate for ICU admission. She was accepted to the ICU with Dr. Womack as the consult and Dr. Gagnon as the accepting physician. Medical Records Attestation: I reviewed the patient's medical records. Lab Data Attestation: I reviewed the patient's lab results. 08/24/24 22:11 08/24/24 22:11 Labs: Lab Results 08/24/24 08/24/24 08/24/24 Range/Units 22:01 22:10 22:11 WBC 9.2 (4.5-10.0) K/mm3 RBC 6.13 H (4.2-5.4) M/mm3 Hgb 18.6 H D (12.0-15.0) g/dL Hct 53.5 H (37.0-47.0) % MCV 87.3 (80-100) fl MCH 30.3 (26-34) pg MCHC 34.8 (32-36) g/dl RDW 17.3 H (11.5-14.5) % Plt Count 209 (150-375) k/mm3 MPV 10.3 (7.4-10.4) fl Immature Gran % (Auto) 0.7 H (0-0.5) % Neut % (Auto) 81.0 H (45.5-73.1) % Lymph % (Auto) 12.2 L (18.3-44.2) % [place] % (Auto) 5.9 (2.6-8.5) % Eos % (Auto) 0.0 (0-4.4) % Baso % (Auto) 0.2 (0.2-1.2) % Lymph # (Auto) 1.12 (0.9-3.2) K/mm3 [place] # (Auto) 0.5 (0.1-0.6) K/mm3 Eos # (Auto) 0.0 (0-0.3) K/mm3 Baso # (Auto) 0.0 (0.0-0.1) K/mm3 Abs Immat Gran (auto) 0.06 H (0.00-0.031) K/mm3 Absolute Neuts (auto) 7.5 H (1.3-6.7) K/mm3 Absolute Nucleated RBC 0.000 (0.0-0.012) K/mm3 Nucleated RBC % 0.0 (0.0-0.2) % PT 13.9 (11.1-14.7) Seconds INR 1.0 APTT 28.1 (22.3-36.8) Seconds Sodium 136 L (137-145) mmol/L Potassium 3.9 (3.4-5.0) mmol/L Chloride 101 (98-107) mmol/L Carbon Dioxide 30 (22-30) mmol/L Anion Gap 5 (4-12) mmol/L BUN 44 H D (7-17) mg/dL Creatinine 0.70 (0.7-1.0) mg/dL Estim Creat Clear Calc 51 ml/min Estimated GFR > 60 (59 - ) Glucose 92 (65-110) mg/dL POC Capillary Glucose 73 (65-105) mg/dl Lactic Acid 1.2 (0.7-2.0) mmol/L Calcium 9.3 (8.4-10.2) mg/dL Total Bilirubin 1.8 H (0.2-1.3) mg/dL AST 31 (14-36) U/L ALT 20 (6-35) U/L Alkaline Phosphatase 121 (38-126) U/L Total Creatine Kinase 129 (30-135) U/L Troponin I 0.138 H* (0.000-0.034) ng/mL NT-Pro-B Natriuret Pep (19.9-100) pg/mL Total Protein 8.0 (6.3-8.2) g/dL Albumin 4.1 (3.5-5.1) g/dL TSH 1.690 (0.465-4.680) uIU/mL Urine Color (Yellow) Urine Appearance (Clear) Urine pH (5.0-9.0) Ur Specific [place] (1.001-1.035) Urine Protein (Negative) mg/dL Urine Glucose (UA) (Negative) mg/dL Urine Ketones (Negative) mg/dL Ur Blood (Man) (Negative) Urine Nitrate (Negative) Urine Bilirubin (Negative) Urine Urobilinogen (<2.0) mg/dL Add Ur Microanalysis Leukocyte Esterase Rfl (Negative) BRENT/UL Urine RBC (0-2) /hpf Urine WBC (0-3) /hpf Ur Squamous Epith Cells (Few) /hpf Urine Bacteria /hpf Urine Casts Salicylates < 1.0 L (2-20) mg/dL Urine Opiates Screen (Negative) Urine Methadone Screen (Negative) Acetaminophen < 10 L (10-30) ug/mL Ur Barbiturates Screen (Negative) Ur Phencyclidine Scrn (Negative) Ur Amphetamine Screen (Negative) U Benzodiazepines Scrn (Negative) Urine Cocaine Screen (Negative) U Cannabinoids Screen (Negative) Ethyl Alcohol < 10 (<10) mg/dL 08/24/24 08/25/24 Range/Units 23:31 01:34 WBC (4.5-10.0) K/mm3 RBC (4.2-5.4) M/mm3 Hgb (12.0-15.0) g/dL Hct (37.0-47.0) % MCV (80-100) fl MCH (26-34) pg MCHC (32-36) g/dl RDW (11.5-14.5) % Plt Count (150-375) k/mm3 MPV (7.4-10.4) fl Immature Gran % (Auto) (0-0.5) % Neut % (Auto) (45.5-73.1) % Lymph % (Auto) (18.3-44.2) % [place] % (Auto) (2.6-8.5) % Eos % (Auto) (0-4.4) % Baso % (Auto) (0.2-1.2) % Lymph # (Auto) (0.9-3.2) K/mm3 [place] # (Auto) (0.1-0.6) K/mm3 Eos # (Auto) (0-0.3) K/mm3 Baso # (Auto) (0.0-0.1) K/mm3 Abs Immat Gran (auto) (0.00-0.031) K/mm3 Absolute Neuts (auto) (1.3-6.7) K/mm3 Absolute Nucleated RBC (0.0-0.012) K/mm3 Nucleated RBC % (0.0-0.2) % PT (11.1-14.7) Seconds INR APTT (22.3-36.8) Seconds Sodium (137-145) mmol/L Potassium (3.4-5.0) mmol/L Chloride (98-107) mmol/L Carbon Dioxide (22-30) mmol/L Anion Gap (4-12) mmol/L BUN (7-17) mg/dL Creatinine (0.7-1.0) mg/dL Estim Creat Clear Calc ml/min Estimated GFR (59 - ) Glucose (65-110) mg/dL POC Capillary Glucose (65-105) mg/dl Lactic Acid (0.7-2.0) mmol/L Calcium (8.4-10.2) mg/dL Total Bilirubin (0.2-1.3) mg/dL AST (14-36) U/L ALT (6-35) U/L Alkaline Phosphatase (38-126) U/L Total Creatine Kinase (30-135) U/L Troponin I 0.119 H* (0.000-0.034) ng/mL NT-Pro-B Natriuret Pep 27054 H (19.9-100) pg/mL Total Protein (6.3-8.2) g/dL Albumin (3.5-5.1) g/dL TSH (0.465-4.680) uIU/mL Urine Color Dark yellow (Yellow) Urine Appearance Clear (Clear) Urine pH 6.0 (5.0-9.0) Ur Specific [place] 1.022 (1.001-1.035) Urine Protein 4+ H (Negative) mg/dL Urine Glucose (UA) 1+ H (Negative) mg/dL Urine Ketones 2+ H (Negative) mg/dL Ur Blood (Man) 1+ H (Negative) Urine Nitrate Negative (Negative) Urine Bilirubin Negative (Negative) Urine Urobilinogen 1.0 (<2.0) mg/dL Add Ur Microanalysis Reviewed Leukocyte Esterase Rfl Negative (Negative) BRENT/UL Urine RBC 3-5 H (0-2) /hpf Urine WBC 0-5 (0-3) /hpf Ur Squamous Epith Cells None seen (Few) /hpf Urine Bacteria None seen /hpf Urine Casts 3-5 Salicylates (2-20) mg/dL Urine Opiates Screen Negative (Negative) Urine Methadone Screen Negative (Negative) Acetaminophen (10-30) ug/mL Ur Barbiturates Screen Negative (Negative) Ur Phencyclidine Scrn Negative (Negative) Ur Amphetamine Screen Negative (Negative) U Benzodiazepines Scrn Negative (Negative) Urine Cocaine Screen Negative (Negative) U Cannabinoids Screen Positive A (Negative) Ethyl Alcohol (<10) mg/dL ABG Data ABG results: 08/24/24 22:21 VBG pH 7.387 VBG pCO2 43.7 VBG pO2 41.5 VBG HCO3 25.7 O2 Delivery Device Room air O2 Liters/Min Not Reportable FiO2 21 Imaging Data Attestation: I personally reviewed and interpreted this imaging study as fo llows: My impression: Pulmonary edema, no consolidations or pneumothorax. Radiologist's impression: Stat read interpretation shows no pulmonary embolism or dissection. Diffuse fluid overload consistent with CHF. Emphysematous lungs. Nonspecific intra- abdominal CT secondary to motion degradation. ECG Data EKG #1: Attestation: I personally reviewed and interpreted this ECG as follows: ECG completion date: 08/24/24 ECG completion time: 07:00 Prior ECG tracings: not available for review Interpretation: No ST segment elevations, depressions or inversions. Overall appears to be normal sinus rhythm, some LVH seen, deep Q-waves in the inferior septal leads, concerning for potential old ischemic changes. No acute evidence of ischemia. No previous EKG for comparison. QTC 469, QRS 70, AK interval 160. Critical Care Time Critical Care Time Critical Care Time: Yes Total Critical Care Time: 75 Discharge Plan Discharge Clinical Impression: Altered mental status, Hypertensive emergency, Fluid overload, Non-STEMI (non- ST elevated myocardial infarction), Encephalopathy, hypertensive Patient Disposition: Still a Patient Condition: Serious Time of Disposition: 03:23
[2024-08-24] MEDS: hydrALAZINE HCL 20 MG/ML VIAL 10 MG IV PUSH (22:23)
[2024-08-24] MEDS: LACTATED RINGERS 1,000 ML 999 ML IV CONT (22:24)
[2024-08-24 22:27] LABS: Basophils Percent Auto 0.2 % (0.2-1.2); Hematocrit 53.5 % (37.0-47.0); Hemoglobin 18.6 g/dL (12.0-15.0); Immature Granulocyte Absolute 0.06 K/mm3 (0.00-0.031); Immature Granulocyte Percent A 0.7 % (0-0.5); Lymphocytes Absolute Auto 1.12 K/mm3 (0.9-3.2); Lymphocytes Percent Auto 12.2 % (18.3-44.2); Mean Corpuscular HGB Conc 34.8 g/dl (32-36); Mean Corpuscular Hemoglobin 30.3 pg (26-34); Mean Corpuscular Volume 87.3 fl (80-100); Mean Platelet Volume 10.3 fl (7.4-10.4); Monocytes Absolute Auto 0.5 K/mm3 (0.1-0.6); Monocytes Percent Auto 5.9 % (2.6-8.5); Neutrophils Absolute Auto 7.5 K/mm3 (1.3-6.7); Platelet Count Result 209 k/mm3 (150-375); Red Blood Count 6.13 M/mm3 (4.2-5.4); Red Cell Distribution Width 17.3 % (11.5-14.5); White Blood Count 9.2 K/mm3 (4.5-10.0)
[2024-08-24 22:32] LABS: Lactic Acid Reflex 1.2 mmol/L (0.7-2.0)
[2024-08-24 22:33] LABS: Fractional Inspired Oxygen 21 %; HCO3 VBG 25.7 mEq/l (24.0-30.0); PCO2 VBG 43.7 mmHg (42.0-48.0); PO2 VBG 41.5 mmHg (35.0-45.0); pH VBG 7.387 (7.300-7.400)
[2024-08-24 22:33] LABS: Alanine Aminotransferase 20 U/L (6-35); Albumin Level 4.1 g/dL (3.5-5.1); Alkaline Phosphatase 121 U/L (38-126); Anion Gap 5 mmol/L (4-12); Aspartate Amino Transferase 31 U/L (14-36); Bilirubin,Total 1.8 mg/dL (0.2-1.3); Blood Urea Nitrogen 44 mg/dL (7-17); Calcium 9.3 mg/dL (8.4-10.2); Carbon Dioxide 30 mmol/L (22-30); Chloride 101 mmol/L (98-107); Creatine Kinase 129 U/L (30-135); Estimated CRCL calculation 51 ml/min; Estimated Glomerular Filt Rate > 60; Glucose 92 mg/dL (65-110); Potassium 3.9 mmol/L (3.4-5.0); Sodium 136 mmol/L (137-145)
[2024-08-24 22:34] LABS: Device ROOM AIR
[2024-08-24 22:42] LABS: Partial Thromboplastin Time 28.1 Seconds (22.3-36.8); Prothrombin Time 13.9 Seconds (11.1-14.7)
[2024-08-24] MEDS: DEXTROSE 5%/LACTATED RINGERS 1,000 ML 1000 ML IV CONT (22:46)
[2024-08-24 22:47] VITALS: BP 185/96; PULSE 93; RESP 16; O2SAT 96
[2024-08-24 22:49] LABS: Troponin I 0.138 ng/mL (0.000-0.034)
[2024-08-24 23:22] LABS: Acetaminophen < 10 ug/mL (10-30); Ethanol < 10 mg/dL (<10); Salicylate < 1.0 mg/dL (2-20)
[2024-08-24 23:28] VITALS: BP 160/98; PULSE 108; RESP 20; O2SAT 97
[2024-08-24 23:59] LABS: Amphetamine Screen Urine Negative (Negative); Barbiturate Screen Urine Negative (Negative); Benzodiazepines Screen Urine Negative (Negative); Cannabinoid Screen Urine Positive (Negative); Cocaine Screen Urine Negative (Negative); Methadone Screen Urine Negative (Negative); Opiate Screen Urine Negative (Negative); Phencyclidine Screen Urine Negative (Negative)
[2024-08-25] VITALS (58 sets, daily range): BP systolic 109–190; BP diastolic 67–105; PULSE 63–109; RESP 14–25; TEMP 36.5–37.1; O2SAT 76–100; BMI 15.1
[2024-08-25 00:02] LABS: Add Urine Microscopic? YES; Appearance Urine Clear (Clear); Bacteria Urine None Seen /hpf; Bilirubin Urine Negative (Negative); Blood Urine 1+ (Negative); Color Urine Dark Yellow (Yellow); Glucose Urine UA 1+ mg/dL (Negative); Ketones Urine 2+ mg/dL (Negative); Leukocyte Esterase Ur Negative LEU/UL (Negative); Need Manual Microscopic Reviewed; Nitrate Urine Negative (Negative); Protein Urine 4+ mg/dL (Negative); Specific Grav Ur 1.022 (1.001-1.035); Squamous Epithelial Cell Urine None Seen /hpf (Few); WBC Urine 0-5 /hpf (0-3)
--- NOTE | 2024-08-25 01:02 | PC.NURSE ---
Patient returned from CT and switch technician informs this RN that the patient stated she felt short of breath after receiving contrast. RN at bedside found the patient to have an oxygen saturation of 76%. Patient placed on 4 LPM via nasal cannula with improvement of oxygen saturation.
--- NOTE | 2024-08-25 01:51 | ECG_ITS ---
Test Date: 2024-08-25 01:54:09 Measurements Intervals [place] Rate: 93 P: 49 MD: 158 QRS: 84 QRSD: 72 T: 100 QT: 360 QTc: 448 Interpretive Statements SINUS RHYTHM SEPTAL MYOCARDIAL INFARCTION , OF INDETERMINATE AGE [40+ ms Q WAVE IN V1/V2] Compared to ECG 08/24/2024 22:18:32 T-wave abnormality no longer present Possible ischemia no longer present Myocardial infarct finding still present Electronically Signed On 08-25-2024 12:09:21 STORY TELLER by Uriel Fair M.D.
[2024-08-25 02:06] LABS: Troponin I 0.119 ng/mL (0.000-0.034)
--- NOTE | 2024-08-25 02:09 | ECG_ITS ---
Test Date: 2024-08-25 02:11:56 Measurements Intervals [place] Rate: 95 P: 51 OK: 155 QRS: 85 QRSD: 70 T: 97 QT: 364 QTc: 459 Interpretive Statements SINUS RHYTHM POSSIBLE RIGHT VENTRICULAR CONDUCTION DELAY [RSR (QR) IN V1/V2] SEPTAL MYOCARDIAL INFARCTION , OF INDETERMINATE AGE [40+ ms Q WAVE IN V1/V2] Compared to ECG 08/25/2024 01:54:09 No significant changes Electronically Signed On 08-25-2024 12:09:33 VEGETABLE LOADER by Uriel Fair M.D.
[2024-08-25 02:24] LABS: NT Pro B Type Natriuretic Pept 19100 pg/mL (19.9-100)
[2024-08-25] MEDS: FUROSEMIDE INJ 40 MG/4 ML VIAL IV PUSH (03:08)
[2024-08-25] MEDS: niCARdipine 20 MG/200 ML 20 MG/200 ML BAG 50 MG IV CONT (03:10)
--- NOTE | 2024-08-25 04:09 | PC.NURSE ---
Report received from Felicia LUEVANO.
--- NOTE | 2024-08-25 04:17 | ADMGEN ---
This patient, Sherrie Jensen, was admitted to Intensive Care Unit-3. Patient/family oriented to hospital policies and general routines including ID bracelet, bed and alarms, visiting hours, pain management, procedures, bathroom and other care routines, personal items, smoking policy, room service/diet, and visiting hours. Information on how to activate the Rapid Response Team has been discussed. Patient/Family are encouraged to report perceived risks to care and to ask questions if they do not understand what they are told or what they should do.
[2024-08-25 06:13] LABS: MRSA (PCR) NOT DETECTED (NOT DETECTE)
--- NOTE | 2024-08-25 07:03 | PM.IMHP ---
H&P: HPI History of Present Illness Date/Time: 08/25/24 05:30 Chief Complaint: Altered mental status Narrative: 59-year-old female with past medical history of COPD, heavy tobacco use, peripheral neuropathy, anxiety and bipolar depression who presented to the ER via EMS due to altered mental status. The patient reported ENTs that the patient had not been acting right she has not been taking her meds or eating. She last took her medications on the 21 of August. The patient response to her name and can tell me her last name. At times she is staring off into space without answering questions. She will intermittently follow commands and then when asked to repeat the task for another provider she will stare straight ahead at them like she does not understand the question. She was noted to have dilated pupils that were sluggishly reactive but equal. She had normal glucose on arrival. The patient arrived with numerous medication bottles some multiple bottles of the same medication. Patient is not in any obvious respiratory distress. CT of the chest abdomen pelvis (per stat read interpretation) demonstrated cardiomegaly, emphysematous changes, the abdominal portion of the CT scan was limited due to motion artifact but could be suggestive of cystitis and or multi segmental enteral colitis. The patient had no abdominal tenderness on palpation and has not had any bowel movements to suggest diarrhea since admission. She has been afebrile. There is some question about whether not the patient's daughter who has a substance abuse problem may have visited the patient in supplied her with some illicit substances. Initially on arrival to the ER the patient's blood pressures were markedly elevated at 199/108. The patient answers questions yes and no but it is uncertain if her responses are accurate to the situation. She will verbalize her name when asked but otherwise does not answer orientation questions. She stares blankly ahead whenever asked any orientation questions. She had increased tone noted the in her extremities most notably in her lower extremities. She has CT scan of her brain performed in the ER which was negative for any acute process. The patient had an elevated hemoglobin and BUN compared to baseline values from a couple of years ago. She appeared intervascular volume depleted with dry mucous membranes and received 2 L of LR in the ER. When the patient went to CT scan she became acutely hypoxic and required 4 L nasal cannula to bring her oxygen saturations up. She subsequently received 1 dose of IV Lasix and had excellent urine output. However of catheter was not placed in the ER and the patient was incontinent of urine in saturated the entire bed in all of her clothing as well as her personal belongings. Since patient arrived to the ICU she has already put out another 300 mL in urine. Review of Systems Review of Systems: ROS unobtainable: Yes unobtainable due to mental status PMFSH Past Medical History Medical History (Updated 08/25/24 @ 08:50 by Kady Gagnon DO) Acid reflux Arthritis Bipolar depression Depression Fibromyalgia Hyperlipidemia Peptic ulcer disease Rheumatoid arthritis Surgical History Surgical History H/O section Family History Family History Other Unknown family medical history Social History Social History (Updated 08/25/24 @ 08:25 by Kady Gagnon DO) Social History: Code status: Full code Smoking status: Current every day smoker Tobacco type: cigarettes Alcohol intake: never Substance use: current Substance use type: marijuana Gender identity (if verbalized by the patient): Female Spiritual care concerns: No Meds Home Medications and Allergies Home Medications Medication Instructions Recorded Confirmed Type atorvastatin 20 mg tablet 20 mg PO DAILY 10/30/19 08/25/24 History duloxetine 60 mg capsule,delayed 60 mg PO Q12H 10/30/19 08/25/24 History release clonazepam 0.5 mg tablet 0.5 mg PO Q12H PRN Anxiety 09/03/20 08/25/24 History omeprazole 40 mg capsule,delayed 40 mg PO BID 30 days #60 caps 09/03/20 08/25/24 Rx release budesonide-formoterol HFA 160 2 puff inhalation Q12H 08/25/24 08/25/24 History mcg-4.5 mcg/actuation aerosol inhaler (Symbicort) ergocalciferol (vitamin D2) 1,250 1,250 mcg PO WEEKLY 08/25/24 08/25/24 History mcg (50,000 unit) capsule ferrous sulfate 325 mg (65 mg 325 mg PO DAILY 08/25/24 08/25/24 History iron) tablet (FeroSul) fluoxetine 20 mg capsule 20 mg PO DAILY 08/25/24 08/25/24 History gabapentin 600 mg tablet 600 mg PO TID 08/25/24 08/25/24 History trazodone 50 mg tablet 50 mg PO DAILY 08/25/24 08/25/24 History Allergies Allergy/AdvReac Type Severity Reaction Status Date / Time Sulfa (Sulfonamide Allergy Unknown Unknown Verified 09/03/20 15:17 Antibiotics) Vital Signs Vital Signs - 24 hr 08/24/24 21:49 08/24/24 21:59 08/24/24 22:04 Temperature 97.8 F Pulse Rate 86 90 86 Respiratory Rate 15 16 Blood Pressure 199/108 H 191/97 H Pulse Oximetry 96 100 Oxygen Delivery Room Air Oxygen Flow Rate 08/24/24 22:04 08/24/24 22:47 08/24/24 23:28 Temperature Pulse Rate 93 108 H Respiratory Rate 16 20 Blood Pressure 185/96 H 160/98 H Pulse Oximetry 100 96 97 Oxygen Delivery Room Air Oxygen Flow Rate 08/25/24 00:50 08/25/24 01:02 08/25/24 01:47 Temperature Pulse Rate 102 H Respiratory Rate 18 Blood Pressure Pulse Oximetry 76 L 95 95 Oxygen Delivery Nasal Cannula Nasal Cannula Oxygen Flow Rate 4 2 08/25/24 02:03 08/25/24 03:10 08/25/24 03:36 Temperature Pulse Rate 99 99 109 H Respiratory Rate 15 21 H Blood Pressure 190/90 H 178/102 H 148/74 H Pulse Oximetry 95 92 Oxygen Delivery Oxygen Flow Rate 08/25/24 04:34 08/25/24 04:45 08/25/24 04:33 Temperature Pulse Rate 104 H 102 H 109 H Respiratory Rate 19 22 H Blood Pressure 150/88 H 151/85 H 141/93 H Pulse Oximetry 95 88 L Oxygen Delivery Oxygen Flow Rate 08/25/24 04:45 08/25/24 05:00 08/25/24 04:17 Temperature 98.7 F Pulse Rate 101 H 95 Respiratory Rate 24 H 25 H Blood Pressure 151/85 H 162/79 H Pulse Oximetry 93 95 92 Oxygen Delivery Nasal Cannula Oxygen Flow Rate 5 08/25/24 05:45 Temperature Pulse Rate 97 Respiratory Rate Blood Pressure 168/84 H Pulse Oximetry Oxygen Delivery Oxygen Flow Rate Exam Narrative: Weight 41.3 kg BMI 15.2 Const: Other: Thin body habitus, disheveled, appears older than stated age HENMT: Other: Mucous membranes are dry, no oral pharyngeal erythema, edentulous upper and lower jaw, head is normocephalic atraumatic Eyes: Other: Pupils are equal, dilated with irregular pupils shape bilaterally, sluggishly/minimally reactive, nasal cannula in place Neck: Other: No JVD, no obvious lymphadenopathy Resp: Other: Decreased breath sounds bilaterally, no increased work of breathing Cardio: Other: Mildly tachycardic, regular were rhythm, 2+ bilateral radial pedal pulses, no JVD GI: Other: Soft, nontender, nondistended, positive bowel sounds : Other: Incontinent of urine Skin: Other: Mildly jaundice, no petechiae Neuro: Other: Patient is alert, intermittently follows commands, pupils are dilated and minimally reactive, patient is increased tone in lower extremities with bilateral toes plantar flexed, possibly upgoing Babinski on the right, left histopathology technician strength is 3/5 right histopathology technician strength is 5/5, possible left facial droop but patient also seemed to decreased brow furrowing on the left compared to right Extrem: Other: No clubbing, cyanosis or pitting edema however patient did have some trace edema to the feet bilaterally Psych: Other: Bizarre affect, flat H&P: Results Labs Labs: Short CBC 08/24/24 Range/Units 22:11 WBC 9.2 (4.5-10.0) K/mm3 Hgb 18.6 H D (12.0-15.0) g/dL Hct 53.5 H (37.0-47.0) % Plt Count 209 (150-375) k/mm3 BMP 08/24/24 22:11 Sodium 136 L Potassium 3.9 Chloride 101 Carbon Dioxide 30 BUN 44 H D Creatinine 0.70 Glucose 92 Calcium 9.3 Cardiac Enzymes 08/24/24 08/25/24 Range/Units 22:11 01:34 Total Creatine Kinase 129 (30-135) U/L Troponin I 0.138 H* 0.119 H* (0.000-0.034) ng/mL Liver Function 08/24/24 Range/Units 22:11 Total Bilirubin 1.8 H (0.2-1.3) mg/dL AST 31 (14-36) U/L ALT 20 (6-35) U/L Alkaline Phosphatase 121 (38-126) U/L Albumin 4.1 (3.5-5.1) g/dL Urine 08/24/24 Range/Units 23:31 Urine Color Dark yellow (Yellow) Urine Appearance Clear (Clear) Urine pH 6.0 (5.0-9.0) Ur Specific [place] 1.022 (1.001-1.035) Urine Protein 4+ H (Negative) mg/dL Urine Glucose (UA) 1+ H (Negative) mg/dL Laboratory Tests 08/25/24 07:50 08/25/24 07:50 08/24/24 08/24/24 08/24/24 22:01 22:10 22:11 WBC 9.2 RBC 6.13 H Hgb 18.6 H D Hct 53.5 H MCV 87.3 MCH 30.3 MCHC 34.8 RDW 17.3 H Plt Count 209 MPV 10.3 Immature Gran % (Auto) 0.7 H Neut % (Auto) 81.0 H Lymph % (Auto) 12.2 L [place] % (Auto) 5.9 Eos % (Auto) 0.0 Baso % (Auto) 0.2 Lymph # (Auto) 1.12 [place] # (Auto) 0.5 Eos # (Auto) 0.0 Baso # (Auto) 0.0 Abs Immat Gran (auto) 0.06 H Absolute Neuts (auto) 7.5 H Absolute Nucleated RBC 0.000 Nucleated RBC % 0.0 PT 13.9 INR 1.0 APTT 28.1 VBG pH VBG pCO2 VBG pO2 VBG HCO3 O2 Delivery Device O2 Liters/Min FiO2 Sodium 136 L Potassium 3.9 Chloride 101 Carbon Dioxide 30 Anion Gap 5 BUN 44 H D Creatinine 0.70 Estim Creat Clear Calc 51 Estimated GFR > 60 Glucose 92 POC Capillary Glucose 73 Lactic Acid 1.2 Calcium 9.3 Total Bilirubin 1.8 H AST 31 ALT 20 Alkaline Phosphatase 121 Total Creatine Kinase 129 Troponin I 0.138 H* C-Reactive Protein NT-Pro-B Natriuret Pep Total Protein 8.0 Albumin 4.1 Qdasj-9-Ywwsuoxpq Sntqu-6-Amnewkkde Pwvj-9-Sczdtgex Etef-4-Puekzhph Gamma Globulins Abnorm Protein Band 1 Abnorm Protein Band 3 PEP Interpretation TSH 1.690 Urine Color Urine Appearance Urine pH Ur Specific [place] Urine Protein Urine Glucose (UA) Urine Ketones Ur Blood (Man) Urine Nitrate Urine Bilirubin Urine Urobilinogen Add Ur Microanalysis Leukocyte Esterase Rfl Urine RBC Urine WBC Ur Squamous Epith Cells Urine Bacteria Urine Casts Urine Osmolality Ur Random Creatinine U Random Total Protein Protein/Creatinin Ratio Urine Albumin U Inyen-8-Biewxcjb U Leokn-2-Dhyfpfih U Beta Globulin U Gamma Globulin U Abnormal Prot Band 1 U Abnormal Prot Band 2 U Abnormal Prot Band 3 Urine PEP Interpret Nasal MRSA (PCR) Salicylates < 1.0 L Urine Opiates Screen Urine Methadone Screen Acetaminophen < 10 L Ur Barbiturates Screen Ur Phencyclidine Scrn Ur Amphetamine Screen U Benzodiazepines Scrn Urine Cocaine Screen U Cannabinoids Screen Ethyl Alcohol < 10 08/24/24 08/24/24 08/25/24 22:21 23:31 01:34 WBC RBC Hgb Hct MCV MCH MCHC RDW Plt Count MPV Immature Gran % (Auto) Neut % (Auto) Lymph % (Auto) [place] % (Auto) Eos % (Auto) Baso % (Auto) Lymph # (Auto) [place] # (Auto) Eos # (Auto) Baso # (Auto) Abs Immat Gran (auto) Absolute Neuts (auto) Absolute Nucleated RBC Nucleated RBC % PT INR APTT VBG pH 7.387 VBG pCO2 43.7 VBG pO2 41.5 VBG HCO3 25.7 O2 Delivery Device Room air O2 Liters/Min Not Reportable FiO2 21 Sodium Potassium Chloride Carbon Dioxide Anion Gap BUN Creatinine Estim Creat Clear Calc Estimated GFR Glucose POC Capillary Glucose Lactic Acid Calcium Total Bilirubin AST ALT Alkaline Phosphatase Total Creatine Kinase Troponin I 0.119 H* C-Reactive Protein NT-Pro-B Natriuret Pep 35787 H Total Protein Albumin Tnloh-3-Vxcjmjnnb Zjukj-5-Uopvrorpz Bcdr-9-Jdfrdqst Dwfe-5-Lhdigvbf Gamma Globulins Abnorm Protein Band 1 Abnorm Protein Band 3 PEP Interpretation TSH Urine Color Dark yellow Urine Appearance Clear Urine pH 6.0 Ur Specific [place] 1.022 Urine Protein 4+ H Urine Glucose (UA) 1+ H Urine Ketones 2+ H Ur Blood (Man) 1+ H Urine Nitrate Negative Urine Bilirubin Negative Urine Urobilinogen 1.0 Add Ur Microanalysis Reviewed Leukocyte Esterase Rfl Negative Urine RBC 3-5 H Urine WBC 0-5 Ur Squamous Epith Cells None seen Urine Bacteria None seen Urine Casts 3-5 Urine Osmolality Ur Random Creatinine U Random Total Protein Protein/Creatinin Ratio Urine Albumin U Isjbm-5-Ydoqpekf U Gadeo-0-Ovjbfsct U Beta Globulin U Gamma Globulin U Abnormal Prot Band 1 U Abnormal Prot Band 2 U Abnormal Prot Band 3 Urine PEP Interpret Nasal MRSA (PCR) Salicylates Urine Opiates Screen Negative Urine Methadone Screen Negative Acetaminophen Ur Barbiturates Screen Negative Ur Phencyclidine Scrn Negative Ur Amphetamine Screen Negative U Benzodiazepines Scrn Negative Urine Cocaine Screen Negative U Cannabinoids Screen Positive A Ethyl Alcohol 08/25/24 08/25/24 04:48 07:50 WBC 13.6 H RBC 5.76 H Hgb 17.5 H Hct 51.0 H MCV 88.5 MCH 30.4 MCHC 34.3 RDW 16.4 H Plt Count 195 MPV 10.8 H Immature Gran % (Auto) 0.4 Neut % (Auto) 81.1 H Lymph % (Auto) 10.0 L [place] % (Auto) 8.4 Eos % (Auto) 0.0 Baso % (Auto) 0.1 L Lymph # (Auto) 1.36 [place] # (Auto) 1.1 H Eos # (Auto) 0.0 Baso # (Auto) 0.0 Abs Immat Gran (auto) 0.06 H Absolute Neuts (auto) 11.0 H Absolute Nucleated RBC 0.000 Nucleated RBC % 0.0 PT INR APTT VBG pH VBG pCO2 VBG pO2 VBG HCO3 O2 Delivery Device O2 Liters/Min FiO2 Sodium 135 L Potassium 3.2 L Chloride 102 Carbon Dioxide 30 Anion Gap 3 L BUN 35 H Creatinine 0.70 Estim Creat Clear Calc 51 Estimated GFR > 60 Glucose 110 POC Capillary Glucose Lactic Acid 1.0 Calcium 8.7 Total Bilirubin 1.8 H AST 26 ALT 17 Alkaline Phosphatase 103 Total Creatine Kinase 112 Troponin I C-Reactive Protein 1.7 H NT-Pro-B Natriuret Pep Total Protein Pending 7.0 Albumin Pending 3.7 Mulkr-0-Osvjrehko Pending Fokvr-9-Ykiqtzwto Pending Vkju-7-Crhynupk Pending Lfpz-7-Jdqwranb Pending Gamma Globulins Pending Abnorm Protein Band 1 Pending Abnorm Protein Band 3 Pending PEP Interpretation Pending TSH Urine Color Urine Appearance Urine pH Ur Specific [place] Urine Protein Urine Glucose (UA) Urine Ketones Ur Blood (Man) Urine Nitrate Urine Bilirubin Urine Urobilinogen Add Ur Microanalysis Leukocyte Esterase Rfl Urine RBC Urine WBC Ur Squamous Epith Cells Urine Bacteria Urine Casts Urine Osmolality Pending Ur Random Creatinine Pending U Random Total Protein Pending Protein/Creatinin Ratio Pending Urine Albumin Pending U Efugc-0-Nqgngfvx Pending U Yaksh-5-Amnioaml Pending U Beta Globulin Pending U Gamma Globulin Pending U Abnormal Prot Band 1 Pending U Abnormal Prot Band 2 Pending U Abnormal Prot Band 3 Pending Urine PEP Interpret Pending Nasal MRSA (PCR) Not detected Salicylates Urine Opiates Screen Urine Methadone Screen Acetaminophen Ur Barbiturates Screen Ur Phencyclidine Scrn Ur Amphetamine Screen U Benzodiazepines Scrn Urine Cocaine Screen U Cannabinoids Screen Ethyl Alcohol Assessment and Plan Assessment and plan (1) Altered mental status: Qualifiers: Altered mental status type: stupor Qualified Code(s): R40.1 - Stupor Code(s): R41.82 - Altered mental status, unspecified Status: Acute (2) Bipolar depression: Code(s): F31.9 - Bipolar disorder, unspecified Status: Acute (3) Hypertensive emergency: Code(s): I16.1 - Hypertensive emergency Status: Acute (4) Fluid overload: Qualifiers: Hypervolemia type: other Qualified Code(s): E87.79 - Other fluid overload Code(s): E87.70 - Fluid overload, unspecified Status: Acute Plan The patient has altered mental status. Patient seems almost catatonic at times. The cause the patient's altered mental status is unclear. Differential includes hypertensive encephalopathy due to hypertensive emergency, serotonin syndrome, catatonia due to psychotic break, other drug intoxication among other possibilities. Patient is afebrile and has no evidence of acute meningeal signs but meningitis could remain on the differential. Will obtain MRI with and without contrast the brain. Will hold all the patient's home psychiatric medications. The patient in her current state seems to be somewhat high risk for aspiration. Will ask speech therapy to perform bedside swallow eval The patient does have polycythemia theoretically due to intravascular volume depletion versus secondary polycythemia due to hypoxia. And I would not be out of the question for the patient have some chronic hypoxic respiratory failure baseline given her history of heavy tobacco use and findings of emphysema on CT. Patient is hypoxic but was not initially hypoxic on arrival to the ER. Hypoxia could also be due to fluid overload state with patient demonstrating cardiomegaly on imaging. Patient did have good response to diuretic therapy. Will repeat CBC and electrolyte panel and monitor. Patient does have elevated troponin again likely secondary to hypertensive urgency and or fluid overload. Troponin is trending down suggesting some component of acute myocardial injury. Patient does not have evidence of acute ischemia on EKG. Will monitor rhythm on telemetry. Will aim for 20% reduction in blood pressures from presenting values but patient has already dropped her blood pressures down into the normal range with Cardene drip. This is an over-correction. Instead will utilize p.r.n. pushes and monitor. Echocardiogram has been ordered. 45 minute spent in critical care activities. Due to a high probability of clinically significant, life threatening deterioration, the patient required my highest level of preparedness to intervene emergently and I personally spent this critical care time directly and personally managing the patient. This critical care time included obtaining a history; examining the patient; pulse oximetry; ordering and review of studies; arranging urgent treatment with development of a management plan; evaluation of patient's response to treatment; frequent reassessment; and discussions with other providers. It was exclusive of separately billable procedures and treating other patients and teaching time. Please see Assessment and Plan section and the rest of the note for further information on patient assessment and treatment. Quality VTE Prophylaxis VTE prophylaxis: mechanical ordered (SCDs) Hospitalist [facility] Advance Care Plan I have confirmed that the patient's Advanced Care Plan is present, code status is documented, or surrogate decision maker is listed in patient medical record.: Yes Medication Reconciliation I have utilized all available resources to obtain, update and review the patients current medications (includes all prescriptions, OTC, herbals, cannabis, and nutritional supplements).: Yes
[2024-08-25 07:55] LABS: Basophils Percent Auto 0.1 % (0.2-1.2); Hemoglobin 17.5 g/dL (12.0-15.0); Immature Granulocyte Absolute 0.06 K/mm3 (0.00-0.031); Immature Granulocyte Percent A 0.4 % (0-0.5); Lymphocytes Absolute Auto 1.36 K/mm3 (0.9-3.2); Mean Corpuscular HGB Conc 34.3 g/dl (32-36); Mean Corpuscular Hemoglobin 30.4 pg (26-34); Mean Corpuscular Volume 88.5 fl (80-100); Mean Platelet Volume 10.8 fl (7.4-10.4); Monocytes Absolute Auto 1.1 K/mm3 (0.1-0.6); Monocytes Percent Auto 8.4 % (2.6-8.5); Neutrophils Percent Auto 81.1 % (45.5-73.1); Platelet Count Result 195 k/mm3 (150-375); Red Blood Count 5.76 M/mm3 (4.2-5.4); Red Cell Distribution Width 16.4 % (11.5-14.5); White Blood Count 13.6 K/mm3 (4.5-10.0)
[2024-08-25 08:10] LABS: Alanine Aminotransferase 17 U/L (6-35); Albumin Level 3.7 g/dL (3.5-5.1); Alkaline Phosphatase 103 U/L (38-126); Anion Gap 3 mmol/L (4-12); Aspartate Amino Transferase 26 U/L (14-36); Bilirubin,Total 1.8 mg/dL (0.2-1.3); Blood Urea Nitrogen 35 mg/dL (7-17); CRP 1.7 mg/dL (<1.0); Calcium 8.7 mg/dL (8.4-10.2); Carbon Dioxide 30 mmol/L (22-30); Chloride 102 mmol/L (98-107); Creatine Kinase 112 U/L (30-135); Estimated CRCL calculation 51 ml/min; Estimated Glomerular Filt Rate > 60; Glucose 110 mg/dL (65-110); Potassium 3.2 mmol/L (3.4-5.0); Sodium 135 mmol/L (137-145)
--- NOTE | 2024-08-25 09:05 | WPDCNINT ---
Assessment and Plan Assessment and plan (1) Altered mental status: Qualifiers: Altered mental status type: stupor Qualified Code(s): R40.1 - Stupor Code(s): R41.82 - Altered mental status, unspecified Status: Acute Assessment and Plan: Altered mental status is multifactorial. Could be related to hypertensive encephalopathy, questionable serotonin syndrome, possible drug related given that patient has dilated pupils, hypertensive urgency, was tachycardic in the ER, pulmonary edema -urine drug screen positive for only cannabinoids -CT scan of the brain on admission showed chronic small-vessel ischemic disease -MRA has been ordered, awaiting MRI results and will start antibiotics if inflammation seen on MRI -will will have Interventional Radiology perform a lumbar puncture -neurology has been consulted, but is not available today -CK levels are normal, no nystagmus, clonus or hyperreflexia, likely rules out serotonin syndrome (2) Hypertensive urgency: Code(s): I16.0 - Hypertensive urgency Status: Acute Assessment and Plan: Hypertensive urgency, could be related to some ingestion which we are not aware of as patient does not have a history of hypertension does not take any blood pressure medication at home -currently off nicardipine infusion -p.r.n. labetalol and hydralazine (3) Elevated troponin: Code(s): R79.89 - Other specified abnormal findings of blood chemistry Status: Acute Assessment and Plan: Could be related to hypertensive urgency -EKG showed Q-waves in V1 through V3 -patient denies any chest pain, -cardiology has been consulted -echocardiogram has been ordered (4) Bipolar depression: Code(s): F31.9 - Bipolar disorder, unspecified Status: Acute Assessment and Plan: Patient with history of bipolar, discussed with sister, she will be bringing patient's home medication Plan DVT prophylaxis: SCDs Stress ulcer prophylaxis: Protonix Nutrition: NPO for now Code Status: Full Critical Care Time Spent: 48 minutes Discussed with patient's sister and updated with patient's condition and plan of care. The sister stated that patient does not have a history of hypertension, she does have tendency to fall, does not take any illicit drugs except smokes marijuana. Patient does smoke tobacco and has a history of COPD according to the sister. Due to a high probability of clinically significant, life threatening deterioration, the patient required my highest level of preparedness to intervene emergently and I personally spent this critical care time directly and personally managing the patient. This critical care time included obtaining a history; examining the patient; pulse oximetry; ordering and review of studies; arranging urgent treatment with development of a management plan; evaluation of patient's response to treatment; frequent reassessment; and discussions with other providers. It was exclusive of separately billable procedures and treating other patients and teaching time. Please see Assessment and Plan section and the rest of the note for further information on patient assessment and treatment This dictation may have been done utilizing a voice recognition system. Attempts have been made to correct errors. However, there may be uncorrected grammatical, spelling, and recognitions errors present. Microphone Boom Operator Consult Note Consult date: 08/25/24 Reason for consult: Altered mental status, hypertensive urgency, enterocolitis HPI: Sherrie Jensen is a 59 year old female with past medical history of COPD, tobacco use, peripheral neuropathy, anxiety, bipolar depression presented to the ED on 08/24/2024 with complains of mental status and not acting right since the last 3 days according to her boyfriend. In the ER patient was giving one-word answers yes or no. Blood pressures were elevated, patient was started on nicardipine infusion. She will intermittently following commands but was not oriented. Patient has dilated pupils which a equal and reactive. Had increased tone in her extremities. CTA chest abdomen pelvis demonstrated cardiomegaly, emphysematous changes, enterocolitis, small pleural effusions, mild pulmonary edema, small pericardial effusion, arterial occlusive disease CT brain showed nonspecific cerebral white matter disease likely chronic small vessel ischemic disease. WBC 9.2, hemoglobin 18.6, platelet 209. INR 1.0. ABGs within normal limits on room air. Electrolytes were within normal limits, creatinine 0.70, lactic of 1.20, total bilirubin 1.8, troponin. CK level 112. Urine drug screen was positive for cannabinoids. UA not reflective of UTI. TSH level was normal. Patient was given Lasix, started on nicardipine infusion and transferred to the ICU for further management. Patient seen examined this morning in the ICU, is awake, not oriented, does track examiner. Give me one-word answers yes or no. Patient denies any chest pain, shortness of breath, abdominal pain, nausea, vomiting, no neck pain on neck flexion. Off nicardipine infusion. Blood pressures are stable. Pupils are still dilated but reactive Review of Systems Review of Systems: All systems reviewed & are unremarkable except as noted in HPI and below PMFSH Past Medical History Medical History (Updated 08/25/24 @ 09:54 by Henok Womack MD) Acid reflux Arthritis Bipolar depression Depression Fibromyalgia Hyperlipidemia Peptic ulcer disease Rheumatoid arthritis Surgical History Surgical History H/O section Family History Family History Other Unknown family medical history Social History Social History (Updated 08/25/24 @ 08:25 by Kady Gagnon DO) Social History: Code status: Full code Smoking status: Current every day smoker Tobacco type: cigarettes Alcohol intake: never Substance use: current Substance use type: marijuana Gender identity (if verbalized by the patient): Female Spiritual care concerns: No Meds Home Medications and Allergies Home Medications Medication Instructions Recorded Confirmed Type atorvastatin 20 mg tablet 20 mg PO DAILY 10/30/19 08/25/24 History duloxetine 60 mg capsule,delayed 60 mg PO Q12H 10/30/19 08/25/24 History release clonazepam 0.5 mg tablet 0.5 mg PO Q12H PRN Anxiety 09/03/20 08/25/24 History omeprazole 40 mg capsule,delayed 40 mg PO BID 30 days #60 caps 09/03/20 08/25/24 Rx release budesonide-formoterol HFA 160 2 puff inhalation Q12H 08/25/24 08/25/24 History mcg-4.5 mcg/actuation aerosol inhaler (Symbicort) ergocalciferol (vitamin D2) 1,250 1,250 mcg PO WEEKLY 08/25/24 08/25/24 History mcg (50,000 unit) capsule ferrous sulfate 325 mg (65 mg 325 mg PO DAILY 08/25/24 08/25/24 History iron) tablet (FeroSul) fluoxetine 20 mg capsule 20 mg PO DAILY 08/25/24 08/25/24 History gabapentin 600 mg tablet 600 mg PO TID 08/25/24 08/25/24 History trazodone 50 mg tablet 50 mg PO DAILY 08/25/24 08/25/24 History Allergies Allergy/AdvReac Type Severity Reaction Status Date / Time Sulfa (Sulfonamide Allergy Unknown Unknown Verified 09/03/20 15:17 Antibiotics) Vital Signs Vital Signs - 24 hr 08/24/24 21:49 08/24/24 21:59 08/24/24 22:04 Temperature 97.8 F Pulse Rate 86 90 86 Respiratory Rate 15 16 Blood Pressure 199/108 H 191/97 H Pulse Oximetry 96 100 Oxygen Delivery Room Air Oxygen Flow Rate 08/24/24 22:04 08/24/24 22:47 08/24/24 23:28 Temperature Pulse Rate 93 108 H Respiratory Rate 16 20 Blood Pressure 185/96 H 160/98 H Pulse Oximetry 100 96 97 Oxygen Delivery Room Air Oxygen Flow Rate 08/25/24 00:50 08/25/24 01:02 08/25/24 01:47 Temperature Pulse Rate 102 H Respiratory Rate 18 Blood Pressure Pulse Oximetry 76 L 95 95 Oxygen Delivery Nasal Cannula Nasal Cannula Oxygen Flow Rate 4 2 08/25/24 02:03 08/25/24 03:10 08/25/24 03:36 Temperature Pulse Rate 99 99 109 H Respiratory Rate 15 21 H Blood Pressure 190/90 H 178/102 H 148/74 H Pulse Oximetry 95 92 Oxygen Delivery Oxygen Flow Rate 08/25/24 04:34 08/25/24 04:45 08/25/24 04:33 Temperature Pulse Rate 104 H 102 H 109 H Respiratory Rate 19 22 H Blood Pressure 150/88 H 151/85 H 141/93 H Pulse Oximetry 95 88 L Oxygen Delivery Oxygen Flow Rate 08/25/24 04:45 08/25/24 05:00 08/25/24 04:17 Temperature 98.7 F Pulse Rate 101 H 95 Respiratory Rate 24 H 25 H Blood Pressure 151/85 H 162/79 H Pulse Oximetry 93 95 92 Oxygen Delivery Nasal Cannula Oxygen Flow Rate 5 08/25/24 05:45 08/25/24 07:23 08/25/24 06:15 Temperature Pulse Rate 97 98 102 H Respiratory Rate Blood Pressure 168/84 H 129/79 133/96 H Pulse Oximetry Oxygen Delivery Oxygen Flow Rate 08/25/24 05:15 08/25/24 05:30 08/25/24 05:45 Temperature Pulse Rate 99 99 96 Respiratory Rate 22 H 23 H 21 H Blood Pressure 155/88 H 159/93 H 168/84 H Pulse Oximetry 97 98 97 Oxygen Delivery Oxygen Flow Rate 08/25/24 05:48 08/25/24 05:53 08/25/24 06:00 Temperature Pulse Rate 96 89 101 H Respiratory Rate 21 H 18 22 H Blood Pressure 167/91 H 171/90 H 162/86 H Pulse Oximetry 98 99 99 Oxygen Delivery Oxygen Flow Rate 08/25/24 06:15 08/25/24 06:30 08/25/24 07:00 Temperature Pulse Rate 102 H 101 H 96 Respiratory Rate 23 H 24 H 22 H Blood Pressure 133/76 136/75 144/74 H Pulse Oximetry 97 98 99 Oxygen Delivery Oxygen Flow Rate 08/25/24 07:15 08/25/24 07:16 08/25/24 07:30 Temperature Pulse Rate 96 95 101 H Respiratory Rate 21 H 17 25 H Blood Pressure 129/79 161/88 H Pulse Oximetry 99 99 99 Oxygen Delivery Oxygen Flow Rate 08/25/24 07:31 08/25/24 07:45 08/25/24 07:46 Temperature Pulse Rate 97 99 98 Respiratory Rate 22 H 20 20 Blood Pressure 156/87 H Pulse Oximetry 100 99 99 Oxygen Delivery Oxygen Flow Rate 08/25/24 08:00 08/25/24 08:01 08/25/24 06:00 Temperature Pulse Rate 96 96 101 H Respiratory Rate 22 H 22 H Blood Pressure 156/86 H Pulse Oximetry 99 100 Oxygen Delivery Oxygen Flow Rate Exam Narrative: General: Patient lying comfortably in bed, in no acute distress HEENT: Pupils are dilated, reactive clear is clear, no nystagmus Neck:? no neck pain on flexion of the neck, no lymphadenopathy Respiratory:? Clear to auscultation bilaterally, decreased at bases, no wheezing Cardiac:? S1-S2 is normal, regular rate and rhythm Abdomen:?soft, non tender, non distended, normoactive bowel sounds Extremities:? Increased tone in all 4 extremities greater in the lower extremities bilaterally, pedal pulses palpable, no edema Neuro:? Patient is awake, confused, not oriented, not follows simple commands. Skin:? Warm and dry Psych:? Unable to assess at this time as she has a flat affect Results Labs 08/25/24 07:50 08/25/24 07:50 Labs: Short CBC 08/24/24 08/25/24 Range/Units 22:11 07:50 WBC 9.2 13.6 H (4.5-10.0) K/mm3 Hgb 18.6 H D 17.5 H (12.0-15.0) g/dL Hct 53.5 H 51.0 H (37.0-47.0) % Plt Count 209 195 (150-375) k/mm3 BMP 08/24/24 08/25/24 22:11 07:50 Sodium 136 L 135 L Potassium 3.9 3.2 L Chloride 101 102 Carbon Dioxide 30 30 BUN 44 H D 35 H Creatinine 0.70 0.70 Glucose 92 110 Calcium 9.3 8.7 Cardiac Enzymes 08/24/24 08/25/24 08/25/24 Range/Units 22:11 01:34 07:50 Total Creatine Kinase 129 112 (30-135) U/L Troponin I 0.138 H* 0.119 H* (0.000-0.034) ng/mL Liver Function 08/24/24 08/25/24 Range/Units 22:11 07:50 Total Bilirubin 1.8 H 1.8 H (0.2-1.3) mg/dL AST 31 26 (14-36) U/L ALT 20 17 (6-35) U/L Alkaline Phosphatase 121 103 (38-126) U/L Albumin 4.1 3.7 (3.5-5.1) g/dL Urine 08/24/24 Range/Units 23:31 Urine Color Dark yellow (Yellow) Urine Appearance Clear (Clear) Urine pH 6.0 (5.0-9.0) Ur Specific [place] 1.022 (1.001-1.035) Urine Protein 4+ H (Negative) mg/dL Urine Glucose (UA) 1+ H (Negative) mg/dL
[2024-08-25] MEDS: PANTOPRAZOLE 40 MG TABLET PO ×2 (09:06→19:56)
[2024-08-25] MEDS: LABETALOL HCL INJ 100 MG/20 ML VIAL 10 MG IV PUSH ×4 (09:07→21:31)
[2024-08-25 10:06] LABS: Influenza A QL RT-PCR Negative (Negative); Influenza B QL RT-PCR Negative (Negative); RSV RNA, RT-PCR Negative (Negative); SARS-CoV-2 RNA PCR Negative (Negative)
[2024-08-25] MEDS: hydrALAZINE HCL 20 MG/ML VIAL 10 MG IV PUSH ×3 (10:57→19:56)
[2024-08-25] MEDS: POTASSIUM CHLORIDE INJ 40 MEQ in SODIUM CHLORIDE 0.9% IV 500 ML 130 MEQ IVPB (10:59)
--- NOTE | 2024-08-25 11:23 | PCSTNOTE ---
Please refer to the Bedside Swallow Evaluation in the EMR. Please note, silent aspiration cannot be ruled out at bedside.
[2024-08-25] MEDS: IPRATROPIUM 0.5 MG/ALBUTEROL SULFATE 2.5 MG AMPUL.NEB 3 ML INHALATION ×2 (14:24→21:17)
[2024-08-26] VITALS (39 sets, daily range): BP systolic 143–184; BP diastolic 72–93; PULSE 70–99; RESP 15–28; TEMP 36.4–36.7; O2SAT 89–100; BMI 13.8
--- NOTE | 2024-08-26 | ECHO_ITS ---
Patient Info Name: Sherrie Jensen Age: 59 years : 1965 Gender: Female Ht: 65 in Wt: 97 lbs BSA: 1.41 m2 HR: 88 bpm BP: 173 / 89 mmHg Technical Quality: Fair Exam Date: 08/26/2024 9:05 AM Exam Location: Echo Lab Patient Status: Inpatient Admit Date: 08/25/2024 Staff Ordering Physician: Kady Gagnon DO Business Analytics Manager: Juju Casillas RDCS Attending Provider: Kady Gagnon DO Referring Physician: Kalin STAFFORD; Exam Type: CA echo doppler color flow Study Info Indications - HYPOXIA, ELEVATED TROPONIN Complete two-dimensional, color flow and Doppler transthoracic echocardiogram is performed. Summary 1. Complete two-dimensional, color flow and Doppler transthoracic echocardiogram is performed. 2. The left ventricle is normal in size with borderline normal systolic function. There is mild concentric left ventricular hypertrophy. The left ventricular ejection fraction is visually estimated to be 50%. 3. The right ventricle is normal in size and systolic function. 4. Normal inferior vena cava with >50% collapse upon inspiration consistent with normal right atrial pressure, 3 mmHg. 5. There is moderate pericardial effusion. Left Ventricle The left ventricle is normal in size with borderline normal systolic function. There is mild concentric left ventricular hypertrophy. The left ventricular ejection fraction is visually estimated to be 50%. Right Ventricle The right ventricle is normal in size and systolic function. Left Atria The left atrium is normal size. Right Atria The right atrium is normal size. Aortic Valve The aortic valve is not well visualized. There is no aortic regurgitation by color Doppler. Pulmonic Valve The pulmonic valve is not well visualized. There is no color Doppler evidence of pulmonic valve regurgitation. Mitral Valve The mitral valve is normal. There is no mitral regurgitation. Tricuspid Valve The tricuspid valve is grossly normal. There is trace tricuspid regurgitation. Pericardium/Pleural There is moderate pericardial effusion. Inferior Vena Cava Normal inferior vena cava with >50% collapse upon inspiration consistent with normal right atrial pressure, 3 mmHg. Aorta The aortic root at the level of the sinus of Valsalva measures 2.5 cm in diameter. Left Ventricular Outflow Tract Name Value Normal LVOT 2D LVOT Diameter 1.8 cm LVOT Doppler LVOT Peak Gradient 3 mmHg LVOT Mean Gradient 2 mmHg LVOT VTI 20 cm LVOT VTI/AV VTI Ratio 0.6 LVOT Stroke Volume 49 ml LVOT CO 3.9 l/min LVOT CI 2.8 l/min/m2 Pulmonic Valve Name Value Normal RVOT Doppler RVOT Peak Gradient 2 mmHg PV Doppler PV Peak Gradient 2 mmHg Mitral Valve Name Value Normal MV Doppler MV Peak Gradient 9 mmHg MV Mean Gradient 4 mmHg MV Decel [place] 573 cm/s2 MV PHT 41 ms MV Area (PHT) 5.3 cm2 4.0-5.0 MV Area (Cont Eq VTI) 1.3 cm2 MV Diastolic Function MV E Peak Velocity 82 cm/s MV A Peak Velocity 123 cm/s MV E/A 0.7 MV Decel Time 142 ms MV Annular TDI MV E/e' (Septal) 13.5 <=8.0 MV E/e' (Lateral) 15.4 <=8.0 MV E/e' (Average) 14.4 Tricuspid Valve Name Value Normal Estimated PAP/RSVP RA Pressure 3 mmHg <=5 Aorta Name Value Normal Ascending Aorta Ao Root Diameter (MM) 1.9 cm Ao Root Diam Index (MM) 1.4 cm/m2 Aortic Valve Name Value Normal AV Doppler AV Peak Velocity 157 cm/s AV Peak Gradient 10 mmHg AV Mean Gradient 6 mmHg AV VTI 35 cm AV Area (Cont Eq VTI) 1.4 cm2 >=3.0 AV Area (Cont Eq Hiren) 1.4 cm2 AV Regurgitation 2D LVOT Area 2.4 cm2 Ventricles Name Value Normal LV Dimensions 2D/MM IVS Diastolic Thickness (2D) 1.1 cm 0.6-1.0 LVID Diastole (2D) 2.9 cm 3.8-5.2 LVIW Diastolic Thickness (2D) 1.8 cm 0.6-0.9 LVID Systole (2D) 2.0 cm 2.2-3.5 LVOT Diameter 1.8 cm LV Mass (2D Cubed) 148.40 g 67.00-162.00 LV Mass Index (2D Cubed) 106 g/m2 43-95 Relative Wall Thickness (2D) 1.25 LV Fractional Shortening/Ejection Fraction 2D/MM LV Fractional Shortening (2D) 30 % 27-45 LV EF (2D Teicholz) 59 % 54-74 LV Diastolic Volume (4C MOD) 52 ml LV EF (4C MOD) 58 % LV Diastolic Volume (2C MOD) 42 ml LV EF (2C MOD) 48 % LV Diastolic Volume (BP MOD) 47 ml 46-106 LV Diastolic Volume Index (BP MOD) 33 ml/m2 29-61 LV Systolic Volume (BP MOD) 22 ml 14-42 LV Systolic Volume Index (BP MOD) 15 ml/m2 8-24 LV EF (BP MOD) 54 % 54-74 LV Diastolic Length (4C) 6.6 cm LV Systolic Length (4C) 5.2 cm LV Stroke Volume (4C MOD) 30 ml Atria Name Value Normal LA Dimensions LA Dimension (MM) 3.2 cm 2.7-3.8 LA Volume (4C A-L) 23 ml LA Volume (BP A-L) 28 ml RA Dimensions RA Area (4C) 10.5 cm2 <=18.0 Report Signatures
[2024-08-26] MEDS: hydrALAZINE HCL 20 MG/ML VIAL 10 MG IV PUSH ×5 (01:02→23:45)
[2024-08-26] MEDS: LABETALOL HCL INJ 100 MG/20 ML VIAL 10 MG IV PUSH ×2 (01:49→05:24)
[2024-08-26] MEDS: IPRATROPIUM 0.5 MG/ALBUTEROL SULFATE 2.5 MG AMPUL.NEB 3 ML INHALATION ×4 (02:39→20:11)
[2024-08-26 03:41] LABS: Basophils Percent Auto 0.3 % (0.2-1.2); Eosinophils Percent Auto 0.1 % (0-4.4); Hematocrit 50.5 % (37.0-47.0); Hemoglobin 17.3 g/dL (12.0-15.0); Immature Granulocyte Absolute 0.03 K/mm3 (0.00-0.031); Immature Granulocyte Percent A 0.4 % (0-0.5); Lymphocytes Absolute Auto 0.89 K/mm3 (0.9-3.2); Lymphocytes Percent Auto 11.3 % (18.3-44.2); Mean Corpuscular HGB Conc 34.3 g/dl (32-36); Mean Corpuscular Hemoglobin 30.3 pg (26-34); Mean Corpuscular Volume 88.4 fl (80-100); Mean Platelet Volume 10.5 fl (7.4-10.4); Monocytes Absolute Auto 0.5 K/mm3 (0.1-0.6); Monocytes Percent Auto 5.9 % (2.6-8.5); Neutrophils Absolute Auto 6.5 K/mm3 (1.3-6.7); Platelet Count Result 173 k/mm3 (150-375); Red Blood Count 5.71 M/mm3 (4.2-5.4); Red Cell Distribution Width 16.7 % (11.5-14.5); White Blood Count 7.9 K/mm3 (4.5-10.0)
[2024-08-26] MEDS: SODIUM CHLOR 3% 15 ML NEB (RESPIRATORY THERAPY) 6 ML INHALATION (03:59)
[2024-08-26 04:45] LABS: Alanine Aminotransferase 15 U/L (6-35); Albumin Level 3.5 g/dL (3.5-5.1); Alkaline Phosphatase 90 U/L (38-126); Anion Gap 2 mmol/L (4-12); Aspartate Amino Transferase 22 U/L (14-36); Bilirubin,Total 1.8 mg/dL (0.2-1.3); Blood Urea Nitrogen 32 mg/dL (7-17); CRP 1.6 mg/dL (<1.0); Calcium 8.6 mg/dL (8.4-10.2); Carbon Dioxide 33 mmol/L (22-30); Chloride 104 mmol/L (98-107); Creatine Kinase 64 U/L (30-135); Estimated CRCL calculation 47 ml/min; Estimated Glomerular Filt Rate > 60; Glucose 113 mg/dL (65-110); Lactic Acid Reflex 0.8 mmol/L (0.7-2.0); Magnesium 1.8 mg/dL (1.6-2.3); Phosphorus 3.6 mg/dL (2.5-4.5); Potassium 3.4 mmol/L (3.4-5.0); Sodium 139 mmol/L (137-145)
[2024-08-26 04:46] LABS: INR 1.1; Partial Thromboplastin Time 27.4 Seconds (22.3-36.8); Prothrombin Time 14.7 Seconds (11.1-14.7)
[2024-08-26] MEDS: LABETALOL HCL INJ 100 MG/20 ML VIAL 20 MG IV PUSH ×2 (09:48→20:18)
--- NOTE | 2024-08-26 09:49 | P.CONCA_ITS ---
Assessment and Plan Assessment and plan (1) Elevated troponin: Code(s): R79.89 - Other specified abnormal findings of blood chemistry Status: Acute (2) Peripheral arterial disease: Code(s): I73.9 - Peripheral vascular disease, unspecified Status: Acute Plan 59-year-old woman who is a heavy tobacco user with PAD, COPD, and bipolar disorder presented with altered mental status for which troponins were collected and was elevated Troponin elevation -trend to peak -the trend is unlikely secondary to ACS but likely demand in setting of hyper tension -ischemic eval can be evaluated outpatient Peripheral arterial disease -can be further evaluated outpatient Hypertension -continue amlodipine 10 mg p.o. daily with goal systolic blood pressure less than 140 mm Hg Cardiology will follow p.r.n. History of Present Illness History of Present Illness Consult date/time: 08/26/24 09:49 Requesting physician: Kady Gagnon DO Reason For Visit: Hypertensive emergency, altered mental status Narrative: 59-year-old woman who is a heavy tobacco user with PAD, COPD, and bipolar disorder presented with altered mental status for which troponins were collected and was elevated. She is minimally verbal and does not respond to most questions. However she does denied chest pain and shortness breath by shaking her head to those questions. Most of the history was obtained through chart review as patient is minimumally willing or able to participate. Review of Systems Cardiovascular: Cardiovascular: Reports as per HPI Respiratory: Respiratory: Reports as per HPI [facility] Past Medical History Medical History (Updated 08/26/24 @ 09:56 by Armando Reis MD) Acid reflux Arthritis Bipolar depression Depression Fibromyalgia Hyperlipidemia Peptic ulcer disease Rheumatoid arthritis Surgical History Surgical History H/O section Family History Family History Other Unknown family medical history Social History Social History (Updated 08/25/24 @ 08:25 by Kady Gagnon DO) Social History: Code status: Full code Smoking status: Current every day smoker Tobacco type: cigarettes Alcohol intake: never Substance use: current Substance use type: marijuana Gender identity (if verbalized by the patient): Female Spiritual care concerns: No Meds Home Medications and Allergies Home Medications Medication Instructions Recorded Confirmed Type atorvastatin 20 mg tablet 20 mg PO DAILY 10/30/19 08/25/24 History duloxetine 60 mg capsule,delayed 60 mg PO Q12H 10/30/19 08/25/24 History release clonazepam 0.5 mg tablet 0.5 mg PO Q12H PRN Anxiety 09/03/20 08/25/24 History omeprazole 40 mg capsule,delayed 40 mg PO BID 30 days #60 caps 09/03/20 08/25/24 Rx release budesonide-formoterol HFA 160 2 puff inhalation Q12H 08/25/24 08/25/24 History mcg-4.5 mcg/actuation aerosol inhaler (Symbicort) ergocalciferol (vitamin D2) 1,250 1,250 mcg PO WEEKLY 08/25/24 08/25/24 History mcg (50,000 unit) capsule ferrous sulfate 325 mg (65 mg 325 mg PO DAILY 08/25/24 08/25/24 History iron) tablet (FeroSul) fluoxetine 20 mg capsule 20 mg PO DAILY 08/25/24 08/25/24 History gabapentin 600 mg tablet 600 mg PO TID 08/25/24 08/25/24 History trazodone 50 mg tablet 50 mg PO DAILY 08/25/24 08/25/24 History Allergies Allergy/AdvReac Type Severity Reaction Status Date / Time Sulfa (Sulfonamide Allergy Unknown Unknown Verified 09/03/20 15:17 Antibiotics) Vital Signs Vital Signs - 24 hr 08/25/24 10:00 08/25/24 10:00 08/25/24 12:00 Temperature Pulse Rate 88 90 Respiratory Rate 16 Blood Pressure 175/93 H Pulse Oximetry 100 98 Oxygen Delivery Nasal Cannula Oxygen Flow Rate 5 Fraction of Inspired Oxygen 08/25/24 12:47 08/25/24 13:43 08/25/24 14:00 Temperature 36.5 C Pulse Rate 87 89 73 Respiratory Rate 16 Blood Pressure 187/95 H Pulse Oximetry 99 Oxygen Delivery Oxygen Flow Rate Fraction of Inspired Oxygen 08/25/24 14:00 08/25/24 14:27 08/25/24 14:27 Temperature Pulse Rate 72 75 Respiratory Rate 23 H 21 H Blood Pressure 169/86 H Pulse Oximetry 100 100 Oxygen Delivery Nasal Cannula Oxygen Flow Rate 5 Fraction of Inspired Oxygen 08/25/24 14:39 08/25/24 16:00 08/25/24 16:00 Temperature 36.5 C Pulse Rate 75 84 Respiratory Rate 14 22 H Blood Pressure 142/83 H Pulse Oximetry 94 95 Oxygen Delivery Nasal Cannula Oxygen Flow Rate 2 Fraction of Inspired Oxygen 08/25/24 16:00 08/25/24 17:06 08/25/24 17:38 Temperature Pulse Rate 63 76 Respiratory Rate Blood Pressure Pulse Oximetry 95 Oxygen Delivery Nasal Cannula Oxygen Flow Rate 2 Fraction of Inspired Oxygen 08/25/24 18:00 08/25/24 18:00 08/25/24 19:51 Temperature Pulse Rate 72 73 73 Respiratory Rate 20 20 Blood Pressure 146/81 H Pulse Oximetry 97 97 Oxygen Delivery Nasal Cannula Oxygen Flow Rate 2 Fraction of Inspired Oxygen 08/25/24 20:00 08/25/24 20:00 08/25/24 20:39 Temperature 36.6 C Pulse Rate 77 77 85 Respiratory Rate 18 18 Blood Pressure 174/91 H 177/98 H Pulse Oximetry 97 97 Oxygen Delivery Oxygen Flow Rate Fraction of Inspired Oxygen 08/25/24 21:00 08/25/24 21:18 08/25/24 21:21 Temperature Pulse Rate 85 77 Respiratory Rate 16 20 Blood Pressure 169/91 H Pulse Oximetry 97 96 Oxygen Delivery Nasal Cannula Oxygen Flow Rate 2 Fraction of Inspired Oxygen 08/25/24 21:27 08/25/24 21:31 08/25/24 21:45 Temperature Pulse Rate 79 84 74 Respiratory Rate 18 18 Blood Pressure 172/89 H Pulse Oximetry 98 Oxygen Delivery Oxygen Flow Rate Fraction of Inspired Oxygen 08/25/24 22:02 08/25/24 22:00 08/25/24 22:00 Temperature Pulse Rate 71 73 73 Respiratory Rate 20 Blood Pressure 167/105 H 167/105 H Pulse Oximetry 98 Oxygen Delivery Oxygen Flow Rate Fraction of Inspired Oxygen 08/25/24 22:33 08/25/24 22:51 08/25/24 22:15 Temperature Pulse Rate 80 78 82 Respiratory Rate 20 19 Blood Pressure 119/69 126/67 136/81 Pulse Oximetry 96 97 Oxygen Delivery Oxygen Flow Rate Fraction of Inspired Oxygen 08/25/24 22:30 08/25/24 22:31 08/25/24 23:32 Temperature Pulse Rate 83 81 83 Respiratory Rate 22 H 21 H 17 Blood Pressure 119/69 109/84 Pulse Oximetry 95 96 95 Oxygen Delivery Oxygen Flow Rate Fraction of Inspired Oxygen 08/25/24 23:32 08/26/24 00:00 08/26/24 00:00 Temperature 36.6 C Pulse Rate 90 85 85 Respiratory Rate 18 18 Blood Pressure 109/84 143/74 H Pulse Oximetry 98 98 Oxygen Delivery Nasal Cannula Oxygen Flow Rate 2 Fraction of Inspired Oxygen 08/26/24 00:00 08/26/24 00:00 08/26/24 01:00 Temperature Pulse Rate 79 78 76 Respiratory Rate 20 Blood Pressure 143/74 H 161/90 H Pulse Oximetry 98 Oxygen Delivery Oxygen Flow Rate Fraction of Inspired Oxygen 08/26/24 01:15 08/26/24 01:49 08/26/24 01:45 Temperature Pulse Rate 80 84 75 Respiratory Rate 21 H 21 H Blood Pressure 160/82 H 163/86 H Pulse Oximetry 98 98 Oxygen Delivery Oxygen Flow Rate Fraction of Inspired Oxygen 08/26/24 02:00 08/26/24 02:00 08/26/24 02:39 Temperature Pulse Rate 74 74 75 Respiratory Rate 19 20 Blood Pressure 153/81 H Pulse Oximetry 98 Oxygen Delivery Oxygen Flow Rate Fraction of Inspired Oxygen 08/26/24 02:47 08/26/24 03:51 08/26/24 02:00 Temperature Pulse Rate 80 85 73 Respiratory Rate 18 20 Blood Pressure 153/81 H Pulse Oximetry 98 Oxygen Delivery Nasal Cannula Oxygen Flow Rate 2 Fraction of Inspired Oxygen 08/26/24 04:00 08/26/24 04:00 08/26/24 04:00 Temperature 36.7 C Pulse Rate 82 80 80 Respiratory Rate 20 20 Blood Pressure 174/93 H Pulse Oximetry 100 Oxygen Delivery Oxygen Flow Rate Fraction of Inspired Oxygen 08/26/24 05:24 08/26/24 05:15 08/26/24 05:43 Temperature Pulse Rate 84 71 71 Respiratory Rate 21 H 20 Blood Pressure 184/91 H 178/90 H Pulse Oximetry 98 98 Oxygen Delivery Oxygen Flow Rate Fraction of Inspired Oxygen 08/26/24 06:00 08/26/24 06:00 08/26/24 04:00 Temperature Pulse Rate 80 82 83 Respiratory Rate 23 H Blood Pressure 173/92 H 174/93 H Pulse Oximetry 98 Oxygen Delivery Oxygen Flow Rate Fraction of Inspired Oxygen 08/26/24 06:00 08/26/24 06:41 08/26/24 08:00 Temperature Pulse Rate 82 88 Respiratory Rate 18 Blood Pressure 173/82 H 173/89 H Pulse Oximetry 97 94 Oxygen Delivery Nasal Cannula Oxygen Flow Rate 1 Fraction of Inspired Oxygen 08/26/24 08:19 08/26/24 08:19 08/26/24 08:00 Temperature Pulse Rate 78 Respiratory Rate Blood Pressure Pulse Oximetry 89 L 95 Oxygen Delivery Room Air Nasal Cannula Oxygen Flow Rate 1 Fraction of Inspired Oxygen 08/26/24 08:00 08/26/24 08:50 08/26/24 08:50 Temperature 36.6 C Pulse Rate 78 70 Respiratory Rate 18 18 Blood Pressure 165/85 H Pulse Oximetry 94 95 Oxygen Delivery Nasal Cannula Oxygen Flow Rate 1 Fraction of Inspired Oxygen 08/26/24 08:57 08/26/24 08:00 08/26/24 08:30 Temperature Pulse Rate 85 77 76 Respiratory Rate 18 Blood Pressure 165/85 H 160/85 H Pulse Oximetry Oxygen Delivery Oxygen Flow Rate Fraction of Inspired Oxygen Exam Const: General: comfortable Eyes: EOM: EOMs intact bilaterally Neck: Neck: no JVD Resp: Auscultation: clear to auscultation bilaterally Cardio: Rate: regular rate Rhythm: regular rhythm GI: GI Palp: Yes Soft to palpation Extrem: General: no edema Other: DP and PT pulses palpable on left foot. DP and PT pulses not palpable on right foot. Results Labs and Meds 08/26/24 03:17 08/26/24 03:17 Lab results: Cardiac Enzymes 08/25/24 08/26/24 Range/Units 09:16 03:17 AST 22 (14-36) U/L Troponin I 0.150 H* D (0.000-0.034) ng/mL Coagulation 08/26/24 Range/Units 03:17 PT 14.7 (11.1-14.7) Seconds APTT 27.4 (22.3-36.8) Seconds CBC 08/26/24 Range/Units 03:17 WBC 7.9 (4.5-10.0) K/mm3 RBC 5.71 H (4.2-5.4) M/mm3 Hgb 17.3 H (12.0-15.0) g/dL Hct 50.5 H (37.0-47.0) % Plt Count 173 (150-375) k/mm3 Lymph # (Auto) 0.89 L (0.9-3.2) K/mm3 [place] # (Auto) 0.5 (0.1-0.6) K/mm3 Eos # (Auto) 0.0 (0-0.3) K/mm3 Baso # (Auto) 0.0 (0.0-0.1) K/mm3 Comprehensive Metabolic Panel 08/26/24 Range/Units 03:17 Sodium 139 (137-145) mmol/L Potassium 3.4 (3.4-5.0) mmol/L Chloride 104 (98-107) mmol/L Carbon Dioxide 33 H (22-30) mmol/L BUN 32 H (7-17) mg/dL Creatinine 0.70 (0.7-1.0) mg/dL Glucose 113 H (65-110) mg/dL Calcium 8.6 (8.4-10.2) mg/dL AST 22 (14-36) U/L ALT 15 (6-35) U/L Alkaline Phosphatase 90 (38-126) U/L Total Protein 7.0 (6.3-8.2) g/dL Albumin 3.5 (3.5-5.1) g/dL Intake and Output 08/25/24 08/26/24 08/26/24 23:59 07:59 15:59 Intake Total 620.4 0 0 Output Total 650 Balance -29.6 0 0 Intake: IV 570.4 0 0 niCARdipine 20 MG/200 ML 20 mg 50.4 0 0 In 200 ml @ 0 mls/hr IV CONT . Q0M [facility] Rx#:[id number] Potassium Chloride Inj 40 meq 520 In Sodium Chloride 0.9% IV 500 ml @ 130 mls/hr IVPB ONCE ONE Rx#:[id number] Oral 50 0 Output: Urine 650 Other: # Incontinent Voids 1 1 Patient Weight 08/26/24 23:59 Weight 37.9 kg
[2024-08-26] MEDS: amLODIPine BESYLATE 10 MG TABLET PO (09:56)
[2024-08-26] MEDS: PANTOPRAZOLE 40 MG TABLET PO ×2 (09:56→20:16)
[2024-08-26] MEDS: FUROSEMIDE INJ 40 MG/4 ML VIAL IV PUSH (10:20)
--- NOTE | 2024-08-26 11:00 | WPDINTPN ---
Progress Note: A&P Assessment and Plan (1) Altered mental status: Qualifiers: Altered mental status type: stupor Qualified Code(s): R40.1 - Stupor Code(s): R41.82 - Altered mental status, unspecified Status: Acute Assessment and Plan: Altered mental status is multifactorial. Could be related to hypertensive encephalopathy, possible drug related given that patient has dilated pupils, hypertensive urgency, was tachycardic in the ER, pulmonary edema - CK levels are normal, no nystagmus, clonus or hyperreflexia, likely rules out serotonin syndrome -urine drug screen positive for only cannabinoids although history is not clear -CT scan of the brain on admission showed chronic small-vessel ischemic disease -brain MRI - 1. Mild nonspecific cerebral white matter disease and pontine disease, which likely represents chronic small vessel ischemic disease. - neurology consult pending -LP pending -blood pressure control -TSH normal -check ammonia (2) Hypertensive urgency: Code(s): I16.0 - Hypertensive urgency Status: Acute Assessment and Plan: Hypertensive urgency, could be related to some ingestion which we are not aware of as patient does not have a history of hypertension does not take any blood pressure medication at home -currently off nicardipine infusion -p.r.n. labetalol and hydralazine -start p.o. amlodipine (3) Elevated troponin: Code(s): R79.89 - Other specified abnormal findings of blood chemistry Status: Acute Assessment and Plan: Could be related to hypertensive urgency -EKG showed Q-waves in V1 through V3 -patient denied any chest pain, -cardiology has been consulted -echocardiogram done and report pending -aspirin, statin, beta-armaan (4) Bipolar depression: Code(s): F31.9 - Bipolar disorder, unspecified Status: Acute Assessment and Plan: Patient with history of bipolar, discussed with sister, she will be bringing patient's home medication Plan DVT prophylaxis: SCDs Stress ulcer prophylaxis: Protonix Nutrition: NPO except meds, will advance diet as mental status allows Code Status: Full Discussed with patient's sister and updated with patient's condition and plan of care. The sister stated that patient does not have a history of hypertension, she does have tendency to fall, does not take any illicit drugs except smokes marijuana although she cannot confirm as patient lives with her boyfriend who does use drugs.. Patient does smoke tobacco and has a history of COPD according to the sister. Critical Care Time Spent: 35 minutes Due to a high probability of clinically significant, life threatening deterioration, the patient required my highest level of preparedness to intervene emergently and I personally spent this critical care time directly and personally managing the patient. This critical care time included obtaining a history; examining the patient; pulse oximetry; ordering and review of studies; arranging urgent treatment with development of a management plan; evaluation of patient's response to treatment; frequent reassessment; and discussions with other providers. It was exclusive of separately billable procedures and treating other patients and teaching time. Please see Assessment and Plan section and the rest of the note for further information on patient assessment and treatment This dictation may have been done utilizing a voice recognition system. Attempts have been made to correct errors. However, there may be uncorrected grammatical, spelling, and recognitions errors present. Subjective Date/time seen: 08/26/24 Overnight events reviewed. Afebrile On 1 L nasal cannula Elevated blood pressure but off on nicardipine infusion Acceptable urine output Sinus rhythm on the monitor. Other Vitals acceptable Alert awake but partially oriented.Denies pain, dyspnea, nausea, headache, follows commands Review of Systems Review of Systems: All systems reviewed & are unremarkable except as noted in HPI and below Exam Narrative: General: Patient lying comfortably in bed, in no acute distress HEENT: Pupils are dilated, reactive clear is clear, no nystagmus Neck:? no neck pain on flexion of the neck, no lymphadenopathy Respiratory:? Clear to auscultation bilaterally, decreased at bases, no wheezing Cardiac:? S1-S2 is normal, regular rate and rhythm Abdomen:?soft, non tender, non distended, normoactive bowel sounds Extremities:? Increased tone in all 4 extremities greater in the lower extremities bilaterally, pedal pulses palpable, no edema Neuro:? Patient is awake, slow to responds. AO x 1, Follows commands with all 4 ext. No facial asymmetry Skin:? Warm and dry Psych:? flat affect and speech Objective Data Vital Signs Vital Signs: Vital Signs - 24 hr 08/25/24 12:00 08/25/24 12:47 08/25/24 13:43 Temperature 36.5 C Pulse Rate 87 89 Respiratory Rate 16 Blood Pressure 187/95 H Pulse Oximetry 98 99 Oxygen Delivery Nasal Cannula Oxygen Flow Rate 5 Fraction of Inspired Oxygen 08/25/24 14:00 08/25/24 14:00 08/25/24 14:27 Temperature Pulse Rate 73 72 Respiratory Rate 23 H Blood Pressure 169/86 H Pulse Oximetry 100 100 Oxygen Delivery Nasal Cannula Oxygen Flow Rate 5 Fraction of Inspired Oxygen 08/25/24 14:27 08/25/24 14:39 08/25/24 16:00 Temperature 36.5 C Pulse Rate 75 75 84 Respiratory Rate 21 H 14 22 H Blood Pressure 142/83 H Pulse Oximetry 94 Oxygen Delivery Oxygen Flow Rate Fraction of Inspired Oxygen 08/25/24 16:00 08/25/24 16:00 08/25/24 17:06 Temperature Pulse Rate 63 Respiratory Rate Blood Pressure Pulse Oximetry 95 95 Oxygen Delivery Nasal Cannula Nasal Cannula Oxygen Flow Rate 2 2 Fraction of Inspired Oxygen 08/25/24 17:38 08/25/24 18:00 08/25/24 18:00 Temperature Pulse Rate 76 72 73 Respiratory Rate 20 Blood Pressure 146/81 H Pulse Oximetry 97 Oxygen Delivery Oxygen Flow Rate Fraction of Inspired Oxygen 08/25/24 19:51 08/25/24 20:00 08/25/24 20:00 Temperature 36.6 C Pulse Rate 73 77 77 Respiratory Rate 20 18 Blood Pressure 174/91 H Pulse Oximetry 97 97 Oxygen Delivery Nasal Cannula Oxygen Flow Rate 2 Fraction of Inspired Oxygen 08/25/24 20:39 08/25/24 21:00 08/25/24 21:18 Temperature Pulse Rate 85 85 77 Respiratory Rate 18 16 20 Blood Pressure 177/98 H 169/91 H Pulse Oximetry 97 97 Oxygen Delivery Oxygen Flow Rate Fraction of Inspired Oxygen 08/25/24 21:21 08/25/24 21:27 08/25/24 21:31 Temperature Pulse Rate 79 84 Respiratory Rate 18 Blood Pressure Pulse Oximetry 96 Oxygen Delivery Nasal Cannula Oxygen Flow Rate 2 Fraction of Inspired Oxygen 08/25/24 21:45 08/25/24 22:02 08/25/24 22:00 Temperature Pulse Rate 74 71 73 Respiratory Rate 18 20 Blood Pressure 172/89 H 167/105 H 167/105 H Pulse Oximetry 98 98 Oxygen Delivery Oxygen Flow Rate Fraction of Inspired Oxygen 08/25/24 22:00 08/25/24 22:33 08/25/24 22:51 Temperature Pulse Rate 73 80 78 Respiratory Rate 20 Blood Pressure 119/69 126/67 Pulse Oximetry 96 Oxygen Delivery Oxygen Flow Rate Fraction of Inspired Oxygen 08/25/24 22:15 08/25/24 22:30 08/25/24 22:31 Temperature Pulse Rate 82 83 81 Respiratory Rate 19 22 H 21 H Blood Pressure 136/81 119/69 Pulse Oximetry 97 95 96 Oxygen Delivery Oxygen Flow Rate Fraction of Inspired Oxygen 08/25/24 23:32 08/25/24 23:32 08/26/24 00:00 Temperature 36.6 C Pulse Rate 83 90 85 Respiratory Rate 17 18 Blood Pressure 109/84 109/84 143/74 H Pulse Oximetry 95 98 Oxygen Delivery Oxygen Flow Rate Fraction of Inspired Oxygen 08/26/24 00:00 08/26/24 00:00 08/26/24 00:00 Temperature Pulse Rate 85 79 78 Respiratory Rate 18 Blood Pressure 143/74 H Pulse Oximetry 98 Oxygen Delivery Nasal Cannula Oxygen Flow Rate 2 Fraction of Inspired Oxygen 08/26/24 01:00 08/26/24 01:15 08/26/24 01:49 Temperature Pulse Rate 76 80 84 Respiratory Rate 20 21 H Blood Pressure 161/90 H 160/82 H Pulse Oximetry 98 98 Oxygen Delivery Oxygen Flow Rate Fraction of Inspired Oxygen 08/26/24 01:45 08/26/24 02:00 08/26/24 02:00 Temperature Pulse Rate 75 74 74 Respiratory Rate 21 H 19 Blood Pressure 163/86 H 153/81 H Pulse Oximetry 98 98 Oxygen Delivery Oxygen Flow Rate Fraction of Inspired Oxygen 08/26/24 02:39 08/26/24 02:47 08/26/24 03:51 Temperature Pulse Rate 75 80 85 Respiratory Rate 20 18 20 Blood Pressure Pulse Oximetry 98 Oxygen Delivery Nasal Cannula Oxygen Flow Rate 2 Fraction of Inspired Oxygen 08/26/24 02:00 08/26/24 04:00 08/26/24 04:00 Temperature Pulse Rate 73 82 80 Respiratory Rate 20 Blood Pressure 153/81 H Pulse Oximetry Oxygen Delivery Oxygen Flow Rate Fraction of Inspired Oxygen 08/26/24 04:00 08/26/24 05:24 08/26/24 05:15 Temperature 36.7 C Pulse Rate 80 84 71 Respiratory Rate 20 21 H Blood Pressure 174/93 H 184/91 H Pulse Oximetry 100 98 Oxygen Delivery Oxygen Flow Rate Fraction of Inspired Oxygen 08/26/24 05:43 08/26/24 06:00 08/26/24 06:00 Temperature Pulse Rate 71 80 82 Respiratory Rate 20 23 H Blood Pressure 178/90 H 173/92 H Pulse Oximetry 98 98 Oxygen Delivery Oxygen Flow Rate Fraction of Inspired Oxygen 08/26/24 04:00 08/26/24 06:00 08/26/24 06:41 Temperature Pulse Rate 83 82 88 Respiratory Rate 18 Blood Pressure 174/93 H 173/82 H 173/89 H Pulse Oximetry 97 Oxygen Delivery Oxygen Flow Rate Fraction of Inspired Oxygen 08/26/24 08:00 08/26/24 08:19 08/26/24 08:19 Temperature Pulse Rate Respiratory Rate Blood Pressure Pulse Oximetry 94 89 L 95 Oxygen Delivery Nasal Cannula Room Air Nasal Cannula Oxygen Flow Rate 1 1 Fraction of Inspired Oxygen 08/26/24 08:00 08/26/24 08:00 08/26/24 08:50 Temperature 36.6 C Pulse Rate 78 78 Respiratory Rate 18 Blood Pressure 165/85 H Pulse Oximetry 94 95 Oxygen Delivery Nasal Cannula Oxygen Flow Rate 1 Fraction of Inspired Oxygen 08/26/24 08:50 08/26/24 08:57 08/26/24 08:00 Temperature Pulse Rate 70 85 77 Respiratory Rate 18 18 Blood Pressure 165/85 H Pulse Oximetry Oxygen Delivery Oxygen Flow Rate Fraction of Inspired Oxygen 08/26/24 08:30 08/26/24 09:48 08/26/24 10:00 Temperature Pulse Rate 76 77 70 Respiratory Rate Blood Pressure 160/85 H Pulse Oximetry Oxygen Delivery Oxygen Flow Rate Fraction of Inspired Oxygen 08/26/24 10:00 Temperature Pulse Rate 72 Respiratory Rate 15 Blood Pressure 167/85 H Pulse Oximetry 92 Oxygen Delivery Oxygen Flow Rate Fraction of Inspired Oxygen Intake/Output Intake/Output: Intake & Output 08/23/24 08/24/24 08/25/24 08/26/24 23:59 23:59 23:59 23:59 Intake Total 1000 1724.6 0 Output Total 50 1200 Balance 950 524.6 0 Meds/Results Medications: Active Medications Generic Name Dose Route Start Last Admin Trade Name Freq PRN Reason Stop Dose Admin Albuterol/Ipratropium 3 ml 08/25/24 14:00 08/26/24 08:50 Ipratropium 0.5 Mg/Albuterol Sulfate 2.5 Mg Ampul.Neb 3 Ml INHALATION 3 ml Q6HRT [facility] Administration Amlodipine Besylate 10 mg 08/26/24 09:05 08/26/24 09:56 Amlodipine Besylate 10 Mg Tablet PO 10 mg DAILY [facility] Administration Furosemide 40 mg 08/26/24 09:50 08/26/24 10:20 Furosemide Inj 40 Mg/4 Ml Vial IV PUSH 08/27/24 09:01 40 mg DAILY [facility] Administration Hydralazine HCl 10 mg 08/25/24 10:02 08/26/24 06:17 Hydralazine Hcl 20 Mg/Ml Vial IV PUSH 10 mg Q4H PRN Administration Blood Pressure - High Labetalol HCl 20 mg 08/26/24 09:06 08/26/24 09:48 Labetalol Hcl Inj 100 Mg/20 Ml Vial IV PUSH 20 mg Q4H PRN Administration Hypertension SBP > 160 Pantoprazole Sodium 40 mg 08/25/24 09:00 08/26/24 09:56 Pantoprazole 40 Mg Tablet PO 40 mg Q12HR [facility] Administration Perflutren Lipid Microsphere 0 ml 08/25/24 03:21 Perflutren Lipid Microspheres 1.5 Ml Vial Diluted To 10 Ml Total Volume IV PUSH 08/28/24 03:22 ONCE PRN adequate visualization Protocol Fluticasone/Salmeterol 2 puff 08/25/24 08:00 08/26/24 08:51 Fluticasone/Salmeterol 115-21 Mcg Inhaler 1 Puff INHALATION Not Given Q12HRT [facility] Sodium Chloride 6 ml 08/26/24 05:00 08/26/24 03:59 Sodium Chlor 3% 15 Ml Neb (Respiratory Therapy) INHALATION 08/28/24 05:01 6 ml DAILY@0500 [facility] Administration Radiology Results: ITS Impressions Chest X-Ray 08/25/24 06:21 IMPRESSION: 1. Mild pulmonary edema. Head CT 08/25/24 07:26 IMPRESSION: 1. Mild nonspecific cerebral white matter disease, which likely represents chronic small vessel ischemic disease. Chest/Abdomen/Pelvis CTA 08/25/24 08:42 IMPRESSION: 1. Mild pulmonary edema. 2. Small pleural effusions. 3. Mild emphysema. 4. Small pericardial effusion. 5. Enterocolitis. 6. Arterial occlusive disease. Brain MRI 08/25/24 12:28 IMPRESSION: 1. Mild nonspecific cerebral white matter disease and pontine disease, which likely represents chronic small vessel ischemic disease. Labs Labs: Laboratory Results - last 24 hr 08/26/24 03:17 WBC 7.9 RBC 5.71 H Hgb 17.3 H Hct 50.5 H MCV 88.4 MCH 30.3 MCHC 34.3 RDW 16.7 H Plt Count 173 MPV 10.5 H Immature Gran % (Auto) 0.4 Neut % (Auto) 82.0 H Lymph % (Auto) 11.3 L [place] % (Auto) 5.9 Eos % (Auto) 0.1 Baso % (Auto) 0.3 Lymph # (Auto) 0.89 L [place] # (Auto) 0.5 Eos # (Auto) 0.0 Baso # (Auto) 0.0 Abs Immat Gran (auto) 0.03 Absolute Neuts (auto) 6.5 Absolute Nucleated RBC 0.000 Nucleated RBC % 0.0 PT 14.7 INR 1.1 APTT 27.4 Sodium 139 Potassium 3.4 Chloride 104 Carbon Dioxide 33 H Anion Gap 2 L BUN 32 H Creatinine 0.70 Estim Creat Clear Calc 47 Estimated GFR > 60 Glucose 113 H Lactic Acid 0.8 Calcium 8.6 Phosphorus 3.6 Magnesium 1.8 Total Bilirubin 1.8 H AST 22 ALT 15 Alkaline Phosphatase 90 Total Creatine Kinase 64 C-Reactive Protein 1.6 H Total Protein 7.0 Albumin 3.5 Quality VTE Prophylaxis VTE prophylaxis: mechanical ordered (SCDs)
[2024-08-26 11:40] LABS: Appearance CSF Clear (Clear); CSF source CSF; Color CSF Colorless (Colorless); Lymphocytes CSF 15 % (40-80); Monocytes CSF 1 % (15-45); Nucleated Cell CSF 2 /uL (0-5); Red Blood Cell CSF 284 (0-2)
[2024-08-26 11:50] LABS: Glucose CSF 83 mg/dL (40-70); Total Protein CSF 37 mg/dL (12-60)
--- NOTE | 2024-08-26 12:23 | WPDNEURCNPN ---
Assessment and Plan Assessment and plan (1) Altered mental status: Qualifiers: Altered mental status type: stupor Qualified Code(s): R40.1 - Stupor Code(s): R41.82 - Altered mental status, unspecified Status: Acute Plan The patient is clearly encephalopathic . Spinal tap has been done. The glucose was 83. CSF protein was 37. Two hundred eighty-four RBC were noted WBC count was 2 predominantly lymphocytes. Urine toxicology on admission was positive for cannabis but negative for others. Urine was positive for routine glucose ketones and blood. the etiology for the change in mental status is not clear. EEG May be helpful. However she has not had any seizure-like spells. Possibly hypertensive encephalopathy or a breakthrough of underlying psychiatric condition could be in the differential diagnosis. Consult date: 08/26/24 HPI: Sherrie Jensen is a 59 year old female admitted to the hospital on 08/24/2024 with altered mental status. Patient's sister was present in room when I came to see her. She has just returned back from the spinal tap procedure done by the interventional radiologist. So far she has been through the workup with regard to the change in mental status. She presented with a blood pressure 199/108. Hemoglobin was 18.6 and 2 hematocrit was 51. Patient smokes heavily and has history of chronic obstructive pulmonary disease. According to her boyfriend she was not acting right. CT scan of brain was performed which did not show any significant abnormalities. MRI of the brain was also performed which did not show any significant abnormal findings. Mild chronic ischemic changes were noted. There is also history of bipolar disorder. There is no history of illicit drug use or alcoholism. She has been treated for hypertension which is now under control. She has been evaluated by helper maintenance cleaning in view of elevation of troponin. I noted the patient also has history of peripheral arterial disease. There is no history of seizures or previous stroke. Review of Systems Review of Systems: ROS unobtainable: Yes unobtainable due to mental status PMFSH Past Medical History Medical History Acid reflux Arthritis Bipolar depression Depression Fibromyalgia Hyperlipidemia Peptic ulcer disease Rheumatoid arthritis Surgical History Surgical History H/O section Family History Family History Other Unknown family medical history Social History Social History Social History: Code status: Full code Smoking status: Current every day smoker Tobacco type: cigarettes Alcohol intake: never Substance use: current Substance use type: marijuana Gender identity (if verbalized by the patient): Female Spiritual care concerns: No Meds Home Medications and Allergies Home Medications Medication Instructions Recorded Confirmed Type atorvastatin 20 mg tablet 20 mg PO DAILY 10/30/19 08/25/24 History duloxetine 60 mg capsule,delayed 60 mg PO Q12H 10/30/19 08/25/24 History release clonazepam 0.5 mg tablet 0.5 mg PO Q12H PRN Anxiety 09/03/20 08/25/24 History omeprazole 40 mg capsule,delayed 40 mg PO BID 30 days #60 caps 09/03/20 08/25/24 Rx release budesonide-formoterol HFA 160 2 puff inhalation Q12H 08/25/24 08/25/24 History mcg-4.5 mcg/actuation aerosol inhaler (Symbicort) ergocalciferol (vitamin D2) 1,250 1,250 mcg PO WEEKLY 08/25/24 08/25/24 History mcg (50,000 unit) capsule ferrous sulfate 325 mg (65 mg 325 mg PO DAILY 08/25/24 08/25/24 History iron) tablet (FeroSul) fluoxetine 20 mg capsule 20 mg PO DAILY 08/25/24 08/25/24 History gabapentin 600 mg tablet 600 mg PO TID 08/25/24 08/25/24 History trazodone 50 mg tablet 50 mg PO DAILY 08/25/24 08/25/24 History Allergies Allergy/AdvReac Type Severity Reaction Status Date / Time Sulfa (Sulfonamide Allergy Unknown Unknown Verified 09/03/20 15:17 Antibiotics) Vital Signs Vital Signs - 24 hr 08/25/24 12:47 08/25/24 13:43 08/25/24 14:00 Temperature 97.7 F Pulse Rate 87 89 73 Respiratory Rate 16 Blood Pressure 187/95 H Pulse Oximetry 99 Oxygen Delivery Oxygen Flow Rate Fraction of Inspired Oxygen 08/25/24 14:00 08/25/24 14:27 08/25/24 14:27 Temperature Pulse Rate 72 75 Respiratory Rate 23 H 21 H Blood Pressure 169/86 H Pulse Oximetry 100 100 Oxygen Delivery Nasal Cannula Oxygen Flow Rate 5 Fraction of Inspired Oxygen 08/25/24 14:39 08/25/24 16:00 08/25/24 16:00 Temperature 97.7 F Pulse Rate 75 84 Respiratory Rate 14 22 H Blood Pressure 142/83 H Pulse Oximetry 94 95 Oxygen Delivery Nasal Cannula Oxygen Flow Rate 2 Fraction of Inspired Oxygen 08/25/24 16:00 08/25/24 17:06 08/25/24 17:38 Temperature Pulse Rate 63 76 Respiratory Rate Blood Pressure Pulse Oximetry 95 Oxygen Delivery Nasal Cannula Oxygen Flow Rate 2 Fraction of Inspired Oxygen 08/25/24 18:00 08/25/24 18:00 08/25/24 19:51 Temperature Pulse Rate 72 73 73 Respiratory Rate 20 20 Blood Pressure 146/81 H Pulse Oximetry 97 97 Oxygen Delivery Nasal Cannula Oxygen Flow Rate 2 Fraction of Inspired Oxygen 08/25/24 20:00 08/25/24 20:00 08/25/24 20:39 Temperature 97.9 F Pulse Rate 77 77 85 Respiratory Rate 18 18 Blood Pressure 174/91 H 177/98 H Pulse Oximetry 97 97 Oxygen Delivery Oxygen Flow Rate Fraction of Inspired Oxygen 08/25/24 21:00 08/25/24 21:18 08/25/24 21:21 Temperature Pulse Rate 85 77 Respiratory Rate 16 20 Blood Pressure 169/91 H Pulse Oximetry 97 96 Oxygen Delivery Nasal Cannula Oxygen Flow Rate 2 Fraction of Inspired Oxygen 08/25/24 21:27 08/25/24 21:31 08/25/24 21:45 Temperature Pulse Rate 79 84 74 Respiratory Rate 18 18 Blood Pressure 172/89 H Pulse Oximetry 98 Oxygen Delivery Oxygen Flow Rate Fraction of Inspired Oxygen 08/25/24 22:02 08/25/24 22:00 08/25/24 22:00 Temperature Pulse Rate 71 73 73 Respiratory Rate 20 Blood Pressure 167/105 H 167/105 H Pulse Oximetry 98 Oxygen Delivery Oxygen Flow Rate Fraction of Inspired Oxygen 08/25/24 22:33 08/25/24 22:51 08/25/24 22:15 Temperature Pulse Rate 80 78 82 Respiratory Rate 20 19 Blood Pressure 119/69 126/67 136/81 Pulse Oximetry 96 97 Oxygen Delivery Oxygen Flow Rate Fraction of Inspired Oxygen 08/25/24 22:30 08/25/24 22:31 08/25/24 23:32 Temperature Pulse Rate 83 81 83 Respiratory Rate 22 H 21 H 17 Blood Pressure 119/69 109/84 Pulse Oximetry 95 96 95 Oxygen Delivery Oxygen Flow Rate Fraction of Inspired Oxygen 08/25/24 23:32 08/26/24 00:00 08/26/24 00:00 Temperature 97.8 F Pulse Rate 90 85 85 Respiratory Rate 18 18 Blood Pressure 109/84 143/74 H Pulse Oximetry 98 98 Oxygen Delivery Nasal Cannula Oxygen Flow Rate 2 Fraction of Inspired Oxygen 08/26/24 00:00 08/26/24 00:00 08/26/24 01:00 Temperature Pulse Rate 79 78 76 Respiratory Rate 20 Blood Pressure 143/74 H 161/90 H Pulse Oximetry 98 Oxygen Delivery Oxygen Flow Rate Fraction of Inspired Oxygen 08/26/24 01:15 08/26/24 01:49 08/26/24 01:45 Temperature Pulse Rate 80 84 75 Respiratory Rate 21 H 21 H Blood Pressure 160/82 H 163/86 H Pulse Oximetry 98 98 Oxygen Delivery Oxygen Flow Rate Fraction of Inspired Oxygen 08/26/24 02:00 08/26/24 02:00 08/26/24 02:39 Temperature Pulse Rate 74 74 75 Respiratory Rate 19 20 Blood Pressure 153/81 H Pulse Oximetry 98 Oxygen Delivery Oxygen Flow Rate Fraction of Inspired Oxygen 08/26/24 02:47 08/26/24 03:51 08/26/24 02:00 Temperature Pulse Rate 80 85 73 Respiratory Rate 18 20 Blood Pressure 153/81 H Pulse Oximetry 98 Oxygen Delivery Nasal Cannula Oxygen Flow Rate 2 Fraction of Inspired Oxygen 08/26/24 04:00 08/26/24 04:00 08/26/24 04:00 Temperature 98.1 F Pulse Rate 82 80 80 Respiratory Rate 20 20 Blood Pressure 174/93 H Pulse Oximetry 100 Oxygen Delivery Oxygen Flow Rate Fraction of Inspired Oxygen 08/26/24 05:24 08/26/24 05:15 08/26/24 05:43 Temperature Pulse Rate 84 71 71 Respiratory Rate 21 H 20 Blood Pressure 184/91 H 178/90 H Pulse Oximetry 98 98 Oxygen Delivery Oxygen Flow Rate Fraction of Inspired Oxygen 08/26/24 06:00 08/26/24 06:00 08/26/24 04:00 Temperature Pulse Rate 80 82 83 Respiratory Rate 23 H Blood Pressure 173/92 H 174/93 H Pulse Oximetry 98 Oxygen Delivery Oxygen Flow Rate Fraction of Inspired Oxygen 08/26/24 06:00 08/26/24 06:41 08/26/24 08:00 Temperature Pulse Rate 82 88 Respiratory Rate 18 Blood Pressure 173/82 H 173/89 H Pulse Oximetry 97 94 Oxygen Delivery Nasal Cannula Oxygen Flow Rate 1 Fraction of Inspired Oxygen 08/26/24 08:19 08/26/24 08:19 08/26/24 08:00 Temperature Pulse Rate 78 Respiratory Rate Blood Pressure Pulse Oximetry 89 L 95 Oxygen Delivery Room Air Nasal Cannula Oxygen Flow Rate 1 Fraction of Inspired Oxygen 08/26/24 08:00 08/26/24 08:50 08/26/24 08:50 Temperature 97.8 F Pulse Rate 78 70 Respiratory Rate 18 18 Blood Pressure 165/85 H Pulse Oximetry 94 95 Oxygen Delivery Nasal Cannula Oxygen Flow Rate 1 Fraction of Inspired Oxygen 08/26/24 08:57 08/26/24 08:00 08/26/24 08:30 Temperature Pulse Rate 85 77 76 Respiratory Rate 18 Blood Pressure 165/85 H 160/85 H Pulse Oximetry Oxygen Delivery Oxygen Flow Rate Fraction of Inspired Oxygen 08/26/24 09:48 08/26/24 10:00 08/26/24 10:00 Temperature Pulse Rate 77 70 72 Respiratory Rate 15 Blood Pressure 167/85 H Pulse Oximetry 92 Oxygen Delivery Oxygen Flow Rate Fraction of Inspired Oxygen 08/26/24 11:15 08/26/24 11:25 Temperature Pulse Rate 80 80 Respiratory Rate 21 H Blood Pressure 179/88 H 179/88 H Pulse Oximetry 93 93 Oxygen Delivery Oxygen Flow Rate Fraction of Inspired Oxygen Exam Narrative: Patient awake but does not answer to most questions. She is unable to do finger count. She is unable the Aricept. To most of the questions asked or follow 1 or 2 step commands. She staring blankly At this time. however she is most likely not aphasic or dysarthric. Her sister was in the room and was trying to assist. Patient afebrile. Blood pressure 178/90 respiration 20 pulse 71. Head and neck no evidence of external trauma. Possible nuchal rigidity pupils were 3 mm size and reacting to light. Extraocular movements were intact. Davis could not be reliably assessed [place] facial asymmetry. Tongue was midline. Other cranial nerves probably grossly within normal limits. Motor system patient does not cooperate well but did squeeze my fingers. Does not cooperate well with the lower limb examination however occasionally does move her both Feet. Deep tendon reflexes did not show any asymmetry. Plantars were downgoing. Since he was in could not reliably performed. Results Labs 08/26/24 03:17 08/26/24 03:17 Labs: Short CBC 08/26/24 Range/Units 03:17 WBC 7.9 (4.5-10.0) K/mm3 Hgb 17.3 H (12.0-15.0) g/dL Hct 50.5 H (37.0-47.0) % Plt Count 173 (150-375) k/mm3 BMP 08/26/24 03:17 Sodium 139 Potassium 3.4 Chloride 104 Carbon Dioxide 33 H BUN 32 H Creatinine 0.70 Glucose 113 H Calcium 8.6 Cardiac Enzymes 08/26/24 Range/Units 03:17 Total Creatine Kinase 64 (30-135) U/L Liver Function 08/26/24 Range/Units 03:17 Total Bilirubin 1.8 H (0.2-1.3) mg/dL AST 22 (14-36) U/L ALT 15 (6-35) U/L Alkaline Phosphatase 90 (38-126) U/L Albumin 3.5 (3.5-5.1) g/dL
--- NOTE | 2024-08-26 16:09 | P.PNIM_ITS ---
Progress Note: A&P Assessment and Plan (1) Altered mental status: Qualifiers: Altered mental status type: stupor Qualified Code(s): R40.1 - Stupor Code(s): R41.82 - Altered mental status, unspecified Status: Acute (2) Hypertensive urgency: Code(s): I16.0 - Hypertensive urgency Status: Acute (3) Elevated troponin: Code(s): R79.89 - Other specified abnormal findings of blood chemistry Status: Acute (4) Bipolar depression: Code(s): F31.9 - Bipolar disorder, unspecified Status: Acute Plan 59-year-old female who presented with altered mental status. Patient has not been acting right not taking meds or eating since August 21. At times she is staring off into space with our answering questions. She will intermittently follow commands. Her blood sugar was normal on arrival. Patient arrived with numerous medication bottles some of them with same medication. No respiratory symptoms. CT of the chest abdomen pelvis demonstrated cardiomegaly emphysematous changes. Abdominal portion of the CT suggested cystitis and/or multilevel segmental enterocolitis. She reported no diarrhea. She has been afebrile. On arrival to the ED blood pressure was elevated at 190 9/108. CT of her brain was negative for any acute intracranial process. She received IV fluids in the ER. When the patient went to CT scan she became acutely hypoxic and required 4 L via nasal cannula. Received a dose of IV Lasix with excellent urine output. Patient was admitted to the ICU. WBC 9.2 hemoglobin 18.6 hematocrit 53 platelet 209 electrolytes were unremarkable. Renal function was normal troponin was elevated at 0.138. Serial troponin 0.138-0.119. LFTs were within normal limit. TSH was normal at 1.69 salicylate less than 1 acetaminophen less than 10 ethyl alcohol less than 10 VBG 7.38/43/41/25 [place] [address]. Urinalysis was negative for urine infection. UDS was positive for cannabinoids. Possible hypertensive encephalopathy serotonin syndrome drug intoxication. Patient was started on nicardipine drip which has been tapered off now. Echo 08/26/2024 with EF 50% no valvular abnormality moderate pericardial effusion. Cardiology was consulted for elevated troponin. Flat trend unlikely to be ACS. Ischemic evaluation as an outpatient basis. Neurology consulted. Brain MRI with mild nonspecific cerebral white matter disease and point time disease which likely represents chronic small vessel ischemic disease. LP was performed. Negative for bacterial meningitis. EEG planned. Renal artery stenosis moderate Moderate stenosis of celiac axis and superior stenosis of the inferior mesenteric artery. Severe stenosis right common iliac artery Enterocolitis Subjective Date/time seen: 08/26/24 16:09 Interval history: Patient transferred out of the ICU today. Chart reviewed. Patient remains confused. Answers some questions. Review of Systems Review of Systems: All systems reviewed & are unremarkable except as noted in HPI and below Exam Narrative: General: Patient lying comfortably in bed, in no acute distress HEENT: Pupils are dilated, reactive clear is clear, no nystagmus Neck:? no neck pain on flexion of the neck, no lymphadenopathy Respiratory:? Clear to auscultation bilaterally, decreased at bases, no wheezing Cardiac:? S1-S2 is normal, regular rate and rhythm Abdomen:?soft, non tender, non distended, normoactive bowel sounds Extremities:? Increased tone in all 4 extremities greater in the lower extremities bilaterally, pedal pulses palpable, no edema Neuro:? Patient is awake, slow to responds. AO x 1-2, Follows commands with all 4 ext. No facial asymmetry Skin:? Warm and dry Psych:? flat affect and speech Objective Data Vital Signs Vital Signs: Vital Signs - 24 hr 08/25/24 17:06 08/25/24 17:38 08/25/24 18:00 Temperature Pulse Rate 76 72 Respiratory Rate Blood Pressure Pulse Oximetry 95 Oxygen Delivery Nasal Cannula Oxygen Flow Rate 2 Fraction of Inspired Oxygen 08/25/24 18:00 08/25/24 19:51 08/25/24 20:00 Temperature 97.9 F Pulse Rate 73 73 77 Respiratory Rate 20 20 18 Blood Pressure 146/81 H 174/91 H Pulse Oximetry 97 97 97 Oxygen Delivery Nasal Cannula Oxygen Flow Rate 2 Fraction of Inspired Oxygen 08/25/24 20:00 08/25/24 20:39 08/25/24 21:00 Temperature Pulse Rate 77 85 85 Respiratory Rate 18 16 Blood Pressure 177/98 H 169/91 H Pulse Oximetry 97 97 Oxygen Delivery Oxygen Flow Rate Fraction of Inspired Oxygen 08/25/24 21:18 08/25/24 21:21 08/25/24 21:27 Temperature Pulse Rate 77 79 Respiratory Rate 20 18 Blood Pressure Pulse Oximetry 96 Oxygen Delivery Nasal Cannula Oxygen Flow Rate 2 Fraction of Inspired Oxygen 08/25/24 21:31 08/25/24 21:45 08/25/24 22:02 Temperature Pulse Rate 84 74 71 Respiratory Rate 18 Blood Pressure 172/89 H 167/105 H Pulse Oximetry 98 Oxygen Delivery Oxygen Flow Rate Fraction of Inspired Oxygen 08/25/24 22:00 08/25/24 22:00 08/25/24 22:33 Temperature Pulse Rate 73 73 80 Respiratory Rate 20 Blood Pressure 167/105 H 119/69 Pulse Oximetry 98 Oxygen Delivery Oxygen Flow Rate Fraction of Inspired Oxygen 08/25/24 22:51 08/25/24 22:15 08/25/24 22:30 Temperature Pulse Rate 78 82 83 Respiratory Rate 20 19 22 H Blood Pressure 126/67 136/81 119/69 Pulse Oximetry 96 97 95 Oxygen Delivery Oxygen Flow Rate Fraction of Inspired Oxygen 08/25/24 22:31 08/25/24 23:32 08/25/24 23:32 Temperature Pulse Rate 81 83 90 Respiratory Rate 21 H 17 Blood Pressure 109/84 109/84 Pulse Oximetry 96 95 Oxygen Delivery Oxygen Flow Rate Fraction of Inspired Oxygen 08/26/24 00:00 08/26/24 00:00 08/26/24 00:00 Temperature 97.8 F Pulse Rate 85 85 79 Respiratory Rate 18 18 Blood Pressure 143/74 H 143/74 H Pulse Oximetry 98 98 Oxygen Delivery Nasal Cannula Oxygen Flow Rate 2 Fraction of Inspired Oxygen 08/26/24 00:00 08/26/24 01:00 08/26/24 01:15 Temperature Pulse Rate 78 76 80 Respiratory Rate 20 21 H Blood Pressure 161/90 H 160/82 H Pulse Oximetry 98 98 Oxygen Delivery Oxygen Flow Rate Fraction of Inspired Oxygen 08/26/24 01:49 08/26/24 01:45 08/26/24 02:00 Temperature Pulse Rate 84 75 74 Respiratory Rate 21 H Blood Pressure 163/86 H Pulse Oximetry 98 Oxygen Delivery Oxygen Flow Rate Fraction of Inspired Oxygen 08/26/24 02:00 08/26/24 02:39 08/26/24 02:47 Temperature Pulse Rate 74 75 80 Respiratory Rate 19 20 18 Blood Pressure 153/81 H Pulse Oximetry 98 Oxygen Delivery Oxygen Flow Rate Fraction of Inspired Oxygen 08/26/24 03:51 08/26/24 02:00 08/26/24 04:00 Temperature Pulse Rate 85 73 82 Respiratory Rate 20 20 Blood Pressure 153/81 H Pulse Oximetry 98 Oxygen Delivery Nasal Cannula Oxygen Flow Rate 2 Fraction of Inspired Oxygen 08/26/24 04:00 08/26/24 04:00 08/26/24 05:24 Temperature 98.1 F Pulse Rate 80 80 84 Respiratory Rate 20 Blood Pressure 174/93 H Pulse Oximetry 100 Oxygen Delivery Oxygen Flow Rate Fraction of Inspired Oxygen 08/26/24 05:15 08/26/24 05:43 08/26/24 06:00 Temperature Pulse Rate 71 71 80 Respiratory Rate 21 H 20 Blood Pressure 184/91 H 178/90 H Pulse Oximetry 98 98 Oxygen Delivery Oxygen Flow Rate Fraction of Inspired Oxygen 08/26/24 06:00 08/26/24 04:00 08/26/24 06:00 Temperature Pulse Rate 82 83 82 Respiratory Rate 23 H Blood Pressure 173/92 H 174/93 H 173/82 H Pulse Oximetry 98 Oxygen Delivery Oxygen Flow Rate Fraction of Inspired Oxygen 08/26/24 06:41 08/26/24 08:00 08/26/24 08:19 Temperature Pulse Rate 88 Respiratory Rate 18 Blood Pressure 173/89 H Pulse Oximetry 97 94 89 L Oxygen Delivery Nasal Cannula Room Air Oxygen Flow Rate 1 Fraction of Inspired Oxygen 08/26/24 08:19 08/26/24 08:00 08/26/24 08:00 Temperature 97.8 F Pulse Rate 78 78 Respiratory Rate 18 Blood Pressure 165/85 H Pulse Oximetry 95 94 Oxygen Delivery Nasal Cannula Oxygen Flow Rate 1 Fraction of Inspired Oxygen 08/26/24 08:50 08/26/24 08:50 08/26/24 08:57 Temperature Pulse Rate 70 85 Respiratory Rate 18 18 Blood Pressure Pulse Oximetry 95 Oxygen Delivery Nasal Cannula Oxygen Flow Rate 1 Fraction of Inspired Oxygen 08/26/24 08:00 08/26/24 08:30 08/26/24 09:48 Temperature Pulse Rate 77 76 77 Respiratory Rate Blood Pressure 165/85 H 160/85 H Pulse Oximetry Oxygen Delivery Oxygen Flow Rate Fraction of Inspired Oxygen 08/26/24 10:00 08/26/24 10:00 08/26/24 11:15 Temperature Pulse Rate 70 72 80 Respiratory Rate 15 Blood Pressure 167/85 H 179/88 H Pulse Oximetry 92 93 Oxygen Delivery Oxygen Flow Rate Fraction of Inspired Oxygen 08/26/24 11:25 08/26/24 12:00 08/26/24 12:00 Temperature Pulse Rate 80 81 Respiratory Rate 21 H Blood Pressure 179/88 H Pulse Oximetry 93 92 Oxygen Delivery Nasal Cannula Oxygen Flow Rate 1 Fraction of Inspired Oxygen 08/26/24 12:00 08/26/24 13:17 08/26/24 13:17 Temperature 97.8 F Pulse Rate 79 83 Respiratory Rate 16 18 Blood Pressure 162/76 H Pulse Oximetry 92 93 Oxygen Delivery Nasal Cannula Oxygen Flow Rate 0.5 Fraction of Inspired Oxygen 22 08/26/24 14:00 08/26/24 14:00 08/26/24 15:56 Temperature Pulse Rate 85 92 Respiratory Rate 19 Blood Pressure 153/72 H Pulse Oximetry 95 91 Oxygen Delivery Nasal Cannula Oxygen Flow Rate 1 Fraction of Inspired Oxygen Intake/Output Intake/Output: Intake & Output 08/23/24 08/24/24 08/25/24 08/26/24 23:59 23:59 23:59 23:59 Intake Total 1000 1724.6 0 Output Total 50 1200 Balance 950 524.6 0 Meds/Results Medications: Active Medications Generic Name Dose Route Start Last Admin Trade Name Freq PRN Reason Stop Dose Admin Albuterol/Ipratropium 3 ml 08/25/24 14:00 08/26/24 13:17 Ipratropium 0.5 Mg/Albuterol Sulfate 2.5 Mg Ampul.Neb 3 Ml INHALATION 3 ml Q6HRT [facility] Administration Amlodipine Besylate 10 mg 08/26/24 09:05 08/26/24 09:56 Amlodipine Besylate 10 Mg Tablet PO 10 mg DAILY [facility] Administration Aspirin 81 mg 08/27/24 09:00 Aspirin 81 Mg Enteric Tablet PO QAM [facility] Atorvastatin Calcium 20 mg 08/27/24 09:00 Atorvastatin 20 Mg Tablet PO DAILY [facility] Furosemide 40 mg 08/26/24 09:50 08/26/24 10:20 Furosemide Inj 40 Mg/4 Ml Vial IV PUSH 08/27/24 09:01 40 mg DAILY [facility] Administration Hydralazine HCl 10 mg 08/25/24 10:02 08/26/24 11:35 Hydralazine Hcl 20 Mg/Ml Vial IV PUSH 10 mg Q4H PRN Administration Blood Pressure - High Labetalol HCl 20 mg 08/26/24 09:06 08/26/24 09:48 Labetalol Hcl Inj 100 Mg/20 Ml Vial IV PUSH 20 mg Q4H PRN Administration Hypertension SBP > 160 Metoprolol Tartrate 25 mg 08/26/24 21:00 Metoprolol Tartrate 25 Mg Tablet PO Q12HR [facility] Pantoprazole Sodium 40 mg 08/25/24 09:00 08/26/24 09:56 Pantoprazole 40 Mg Tablet PO 40 mg Q12HR [facility] Administration Fluticasone/Salmeterol 2 puff 08/25/24 08:00 08/26/24 08:51 Fluticasone/Salmeterol 115-21 Mcg Inhaler 1 Puff INHALATION Not Given Q12HRT [facility] Sodium Chloride 6 ml 08/26/24 05:00 08/26/24 03:59 Sodium Chlor 3% 15 Ml Neb (Respiratory Therapy) INHALATION 08/28/24 05:01 6 ml DAILY@0500 [facility] Administration Radiology Results: ITS Impressions Chest X-Ray 08/25/24 06:21 IMPRESSION: 1. Mild pulmonary edema. Head CT 08/25/24 07:26 IMPRESSION: 1. Mild nonspecific cerebral white matter disease, which likely represents chronic small vessel ischemic disease. Chest/Abdomen/Pelvis CTA 08/25/24 08:42 IMPRESSION: 1. Mild pulmonary edema. 2. Small pleural effusions. 3. Mild emphysema. 4. Small pericardial effusion. 5. Enterocolitis. 6. Arterial occlusive disease. Brain MRI 08/25/24 12:28 IMPRESSION: 1. Mild nonspecific cerebral white matter disease and pontine disease, which likely represents chronic small vessel ischemic disease. Lumbar Puncture Fluoroscopy 08/26/24 11:22 IMPRESSION: 1. Successful fluoro-guided lumbar puncture. Labs Labs: Laboratory Results - last 24 hr 08/26/24 08/26/24 03:17 10:38 WBC 7.9 RBC 5.71 H Hgb 17.3 H Hct 50.5 H MCV 88.4 MCH 30.3 MCHC 34.3 RDW 16.7 H Plt Count 173 MPV 10.5 H Immature Gran % (Auto) 0.4 Neut % (Auto) 82.0 H Lymph % (Auto) 11.3 L [place] % (Auto) 5.9 Eos % (Auto) 0.1 Baso % (Auto) 0.3 Lymph # (Auto) 0.89 L [place] # (Auto) 0.5 Eos # (Auto) 0.0 Baso # (Auto) 0.0 Abs Immat Gran (auto) 0.03 Absolute Neuts (auto) 6.5 Absolute Nucleated RBC 0.000 Nucleated RBC % 0.0 PT 14.7 INR 1.1 APTT 27.4 Sodium 139 Potassium 3.4 Chloride 104 Carbon Dioxide 33 H Anion Gap 2 L BUN 32 H Creatinine 0.70 Estim Creat Clear Calc 47 Estimated GFR > 60 Glucose 113 H Lactic Acid 0.8 Calcium 8.6 Phosphorus 3.6 Magnesium 1.8 Total Bilirubin 1.8 H AST 22 ALT 15 Alkaline Phosphatase 90 Total Creatine Kinase 64 C-Reactive Protein 1.6 H Total Protein 7.0 Albumin 3.5 CSF Source Csf CSF Appearance Clear CSF Color Colorless CSF RBC 284 H CSF Tot Nucleated Cells 2 CSF Lymphocytes 15 L CSF Monocytes 1 L CSF Glucose 83 H CSF Total Protein 37 Herpes Virus Source Cancelled Herpes Simplex Culture Cancelled HSV I Cancelled Herpes Simplex Virus II Cancelled
[2024-08-26 18:43] LABS: Vitamin D 25 Hydroxy 22.8 ng/mL
[2024-08-26 19:09] LABS: Folic Acid 7.2 ng/mL (2.76->20)
[2024-08-26] MEDS: FLUTICASONE/SALMETEROL 115-21 MCG INHALER 1 PUFF 2 PUFF INHALATION (20:11)
[2024-08-26] MEDS: METOPROLOL TARTRATE 25 MG TABLET PO (20:16)
[2024-08-27] VITALS (29 sets, daily range): BP systolic 109–173; BP diastolic 71–91; PULSE 74–94; RESP 14–25; TEMP 36.3–36.7; O2SAT 94–97
[2024-08-27] MEDS: LABETALOL HCL INJ 100 MG/20 ML VIAL 20 MG IV PUSH ×2 (01:04→04:59)
[2024-08-27] MEDS: IPRATROPIUM 0.5 MG/ALBUTEROL SULFATE 2.5 MG AMPUL.NEB 3 ML INHALATION ×4 (02:15→20:42)
[2024-08-27 03:20] LABS: Hematocrit 56.2 % (37.0-47.0); Hemoglobin 19.6 g/dL (12.0-15.0); Mean Corpuscular HGB Conc 34.9 g/dl (32-36); Mean Corpuscular Hemoglobin 30.6 pg (26-34); Mean Corpuscular Volume 87.8 fl (80-100); Mean Platelet Volume 10.9 fl (7.4-10.4); Platelet Count Result 164 k/mm3 (150-375); Red Cell Distribution Width 17.3 % (11.5-14.5); White Blood Count 7.5 K/mm3 (4.5-10.0)
[2024-08-27 03:30] LABS: Alanine Aminotransferase 18 U/L (6-35); Alkaline Phosphatase 107 U/L (38-126); Anion Gap 3 mmol/L (4-12); Aspartate Amino Transferase 28 U/L (14-36); Bilirubin,Total 1.5 mg/dL (0.2-1.3); Blood Urea Nitrogen 40 mg/dL (7-17); Carbon Dioxide 36 mmol/L (22-30); Chloride 98 mmol/L (98-107); Estimated CRCL calculation 44 ml/min; Estimated Glomerular Filt Rate > 60; Glucose 118 mg/dL (65-110); Magnesium 1.9 mg/dL (1.6-2.3); Potassium 3.3 mmol/L (3.4-5.0); Sodium 137 mmol/L (137-145)
[2024-08-27] MEDS: SODIUM CHLOR 3% 15 ML NEB (RESPIRATORY THERAPY) 6 ML INHALATION (05:30)
--- NOTE | 2024-08-27 06:06 | PCRCNOTE ---
No sputum obtained during sputum induction. Specimen cup left at bedside. RN aware.
[2024-08-27] MEDS: hydrALAZINE HCL 20 MG/ML VIAL 10 MG IV PUSH (06:52)
[2024-08-27] MEDS: FLUTICASONE/SALMETEROL 115-21 MCG INHALER 1 PUFF 2 PUFF INHALATION ×2 (07:36→20:37)
[2024-08-27] MEDS: amLODIPine BESYLATE 10 MG TABLET PO (09:10)
[2024-08-27] MEDS: POTASSIUM CHLORIDE 20 MEQ ER TABLET 40 MEQ PO (09:10)
[2024-08-27] MEDS: METOPROLOL TARTRATE 25 MG TABLET PO ×2 (09:10→21:04)
[2024-08-27] MEDS: PANTOPRAZOLE 40 MG TABLET PO ×2 (09:10→21:05)
[2024-08-27] MEDS: ATORVASTATIN 20 MG TABLET PO (09:10)
[2024-08-27] MEDS: FUROSEMIDE INJ 40 MG/4 ML VIAL IV PUSH (09:10)
[2024-08-27] MEDS: ASPIRIN 81 MG ENTERIC TABLET PO (09:17)
--- NOTE | 2024-08-27 10:11 | WPDNEUROLOGY ---
Neurology EEG Report General Information Date of Study: 08/27/24 TEST Eeg DIAGNOSIS altered mental status. CONDITION OF RECORDING Drowsy and asleep. EEG NUMBER [id number] CLINICAL HISTORY patient was brought into the hospital for altered mental status she will nod yes or no to all questions but has not been talking at all. EEG DESCRIPTION Background rhythm consists of low to medium voltage 5 to 7 hertz per 2nd theta activity admixed with low to medium voltage 3 to 4 hertz per 2nd delta activity and superimposed by low voltage 15 to 18 hertz per 2nd beta activity. poor willie posterior gradient noted. Hyperventilation and photic stimulation not done. IMPRESSION Abnormal record due to the presence of diffuse slowing of the background rhythm but without any evidence of paroxysmal activity. This abnormality suggestive of underlying organic or metabolic encephalopathy, the possibility of the postictal state cannot be ruled out. Clinical correlation recommended.
--- NOTE | 2024-08-27 13:20 | P.PNIM_ITS ---
Progress Note: A&P Assessment and Plan (1) Altered mental status: Qualifiers: Altered mental status type: stupor Qualified Code(s): R40.1 - Stupor Code(s): R41.82 - Altered mental status, unspecified Status: Acute (2) Hypertensive urgency: Code(s): I16.0 - Hypertensive urgency Status: Acute (3) Elevated troponin: Code(s): R79.89 - Other specified abnormal findings of blood chemistry Status: Acute (4) Bipolar depression: Code(s): F31.9 - Bipolar disorder, unspecified Status: Acute Plan 59-year-old female who presented with altered mental status. Patient has not been acting right not taking meds or eating since August 21. At times she is staring off into space with our answering questions. She will intermittently follow commands. Her blood sugar was normal on arrival. Patient arrived with numerous medication bottles some of them with same medication. No respiratory symptoms. CT of the chest abdomen pelvis demonstrated cardiomegaly emphysematous changes. Abdominal portion of the CT suggested cystitis and/or multilevel segmental enterocolitis. She reported no diarrhea. She has been afebrile. On arrival to the ED blood pressure was elevated at 190 9/108. CT of her brain was negative for any acute intracranial process. She received IV fluids in the ER. When the patient went to CT scan she became acutely hypoxic and required 4 L via nasal cannula. Received a dose of IV Lasix with excellent urine output. Patient was admitted to the ICU. WBC 9.2 hemoglobin 18.6 hematocrit 53 platelet 209 electrolytes were unremarkable. Renal function was normal troponin was elevated at 0.138. Serial troponin 0.138-0.119. LFTs were within normal limit. TSH was normal at 1.69 salicylate less than 1 acetaminophen less than 10 ethyl alcohol less than 10 VBG 7.38/43/41/25 [place] [address]. Urinalysis was negative for urine infection. UDS was positive for cannabinoids. Possible hypertensive encephalopathy serotonin syndrome drug intoxication. Patient was started on nicardipine drip which has been tapered off now. Echo 08/26/2024 with EF 50% no valvular abnormality moderate pericardial effusion. Cardiology was consulted for elevated troponin. Flat trend unlikely to be ACS. Ischemic evaluation as an outpatient basis. Neurology consulted. Brain MRI with mild nonspecific cerebral white matter disease and point time disease which likely represents chronic small vessel ischemic disease. LP was performed. Negative for bacterial meningitis. EEG WITH DIFFUSE SLOWING WITHOUT ANY SEIZURE ACTIVITY. Renal artery stenosis moderate Moderate stenosis of celiac axis and superior stenosis of the inferior mesenteric artery. Severe stenosis right common iliac artery Enterocolitis HOWEVER NO ABDOMINAL PAIN/DISCOMFORT Subjective Date/time seen: 08/27/24 13:20 Interval history: NO OVERNIGHT EVENTS. SHE IS MORE CONVERSANT TODAY. STILL SLOW TO RESPOND. SWALLOW EVALUATION. Review of Systems Review of Systems: All systems reviewed & are unremarkable except as noted in HPI and below Exam Narrative: General: Patient lying comfortably in bed, in no acute distress HEENT: Pupils are dilated, reactive clear is clear, no nystagmus Neck:? no neck pain on flexion of the neck, no lymphadenopathy Respiratory:? Clear to auscultation bilaterally, decreased at bases, no wheezing Cardiac:? S1-S2 is normal, regular rate and rhythm Abdomen:?soft, non tender, non distended, normoactive bowel sounds Extremities:? Increased tone in all 4 extremities greater in the lower extremities bilaterally, pedal pulses palpable, no edema Neuro:? Patient is awake, slow to responds. AO x 2, Follows commands with all 4 ext. No facial asymmetry Skin:? Warm and dry Psych:? flat affect and speech Objective Data Vital Signs Vital Signs: Vital Signs - 24 hr 08/26/24 14:00 08/26/24 14:00 08/26/24 15:56 Temperature Pulse Rate 85 92 Respiratory Rate 19 Blood Pressure 153/72 H Pulse Oximetry 95 91 Oxygen Delivery Nasal Cannula Oxygen Flow Rate 1 Fraction of Inspired Oxygen 08/26/24 16:00 08/26/24 16:00 08/26/24 18:00 Temperature 97.6 F Pulse Rate 99 90 89 Respiratory Rate 16 Blood Pressure 169/87 H Pulse Oximetry 95 Oxygen Delivery Oxygen Flow Rate Fraction of Inspired Oxygen 08/26/24 18:36 08/26/24 20:00 08/26/24 20:05 Temperature 97.9 F Pulse Rate 89 89 Respiratory Rate 22 H 22 H Blood Pressure 154/85 H 162/86 H Pulse Oximetry 95 95 Oxygen Delivery Nasal Cannula Oxygen Flow Rate 2 Fraction of Inspired Oxygen 08/26/24 20:16 08/26/24 20:18 08/26/24 20:11 Temperature Pulse Rate 95 80 90 Respiratory Rate 20 Blood Pressure Pulse Oximetry Oxygen Delivery Oxygen Flow Rate Fraction of Inspired Oxygen 08/26/24 20:13 08/26/24 20:18 08/26/24 21:00 Temperature Pulse Rate 96 87 84 Respiratory Rate 19 28 H Blood Pressure 146/78 H Pulse Oximetry 97 98 Oxygen Delivery Nasal Cannula Oxygen Flow Rate 0.5 Fraction of Inspired Oxygen 08/26/24 20:00 08/26/24 22:00 08/27/24 00:00 Temperature 97.9 F Pulse Rate 87 83 94 Respiratory Rate 20 Blood Pressure 161/85 H Pulse Oximetry 95 Oxygen Delivery Oxygen Flow Rate Fraction of Inspired Oxygen 08/27/24 00:00 08/27/24 00:27 08/27/24 01:04 Temperature Pulse Rate 94 94 88 Respiratory Rate 20 25 H Blood Pressure 149/82 H Pulse Oximetry 95 97 Oxygen Delivery Room Air Oxygen Flow Rate Fraction of Inspired Oxygen 08/27/24 01:00 08/27/24 01:20 08/27/24 00:00 Temperature Pulse Rate 78 79 94 Respiratory Rate 16 17 Blood Pressure 173/91 H 151/85 H Pulse Oximetry 94 95 Oxygen Delivery Oxygen Flow Rate Fraction of Inspired Oxygen 08/27/24 02:00 08/27/24 02:15 08/27/24 02:21 Temperature Pulse Rate 83 83 82 Respiratory Rate 19 14 Blood Pressure Pulse Oximetry Oxygen Delivery Oxygen Flow Rate Fraction of Inspired Oxygen 08/27/24 04:00 08/27/24 04:00 08/27/24 04:00 Temperature 98.1 F Pulse Rate 88 88 87 Respiratory Rate 20 20 Blood Pressure 161/87 H Pulse Oximetry 96 96 Oxygen Delivery Room Air Oxygen Flow Rate Fraction of Inspired Oxygen 08/27/24 04:51 08/27/24 04:59 08/27/24 05:30 Temperature Pulse Rate 86 85 86 Respiratory Rate 21 H Blood Pressure 165/91 H Pulse Oximetry 96 Oxygen Delivery Oxygen Flow Rate Fraction of Inspired Oxygen 08/27/24 06:00 08/27/24 07:34 08/27/24 07:34 Temperature Pulse Rate 78 77 Respiratory Rate 18 Blood Pressure Pulse Oximetry 97 Oxygen Delivery Room Air Oxygen Flow Rate Fraction of Inspired Oxygen 21 08/27/24 07:44 08/27/24 09:10 08/27/24 08:00 Temperature Pulse Rate 78 79 82 Respiratory Rate 18 Blood Pressure Pulse Oximetry Oxygen Delivery Oxygen Flow Rate Fraction of Inspired Oxygen 08/27/24 10:00 12/03/24 08:00 08/27/24 08:00 Temperature 97.6 F Pulse Rate 75 82 Respiratory Rate 18 Blood Pressure 142/77 H Pulse Oximetry 95 Oxygen Delivery Room Air Oxygen Flow Rate Fraction of Inspired Oxygen 08/27/24 12:00 08/27/24 12:00 08/27/24 12:00 Temperature Pulse Rate 81 80 Respiratory Rate 18 Blood Pressure 109/71 Pulse Oximetry 96 Oxygen Delivery Room Air Oxygen Flow Rate Fraction of Inspired Oxygen Intake/Output Intake/Output: Intake & Output 08/24/24 08/25/24 08/26/24 08/27/24 23:59 23:59 23:59 23:59 Intake Total 1000 1724.6 50 120 Output Total 50 1200 400 100 Balance 950 524.6 -350 20 Meds/Results Medications: Active Medications Generic Name Dose Route Start Last Admin Trade Name Freq PRN Reason Stop Dose Admin Albuterol/Ipratropium 3 ml 08/25/24 14:00 08/27/24 07:34 Ipratropium 0.5 Mg/Albuterol Sulfate 2.5 Mg Ampul.Neb 3 Ml INHALATION 3 ml Q6HRT SOLOMON Administration Amlodipine Besylate 10 mg 08/26/24 09:05 08/27/24 09:10 Amlodipine Besylate 10 Mg Tablet PO 10 mg DAILY SOLOMON Administration Aspirin 81 mg 08/27/24 09:00 08/27/24 09:17 Aspirin 81 Mg Enteric Tablet PO 81 mg QAM SOLOMON Administration Atorvastatin Calcium 20 mg 08/27/24 09:00 08/27/24 09:10 Atorvastatin 20 Mg Tablet PO 20 mg DAILY SOLOMON Administration Hydralazine HCl 10 mg 08/25/24 10:02 08/27/24 06:52 Hydralazine Hcl 20 Mg/Ml Vial IV PUSH 10 mg Q4H PRN Administration Blood Pressure - High Labetalol HCl 20 mg 08/26/24 09:06 08/27/24 04:59 Labetalol Hcl Inj 100 Mg/20 Ml Vial IV PUSH 20 mg Q4H PRN Administration Hypertension SBP > 160 Metoprolol Tartrate 25 mg 08/26/24 21:00 08/27/24 09:10 Metoprolol Tartrate 25 Mg Tablet PO 25 mg Q12HR SOLOMON Administration Pantoprazole Sodium 40 mg 08/25/24 09:00 08/27/24 09:10 Pantoprazole 40 Mg Tablet PO 40 mg Q12HR SOLOMON Administration Fluticasone/Salmeterol 2 puff 08/25/24 08:00 08/27/24 07:36 Fluticasone/Salmeterol 115-21 Mcg Inhaler 1 Puff INHALATION 2 puff Q12HRT SOLOMON Administration Sodium Chloride 6 ml 08/26/24 05:00 08/27/24 05:30 Sodium Chlor 3% 15 Ml Neb (Respiratory Therapy) INHALATION 08/28/24 05:01 6 ml DAILY@0500 SOLOMON Administration Radiology Results: ITS Impressions Chest X-Ray 08/25/24 06:21 IMPRESSION: 1. Mild pulmonary edema. Head CT 08/25/24 07:26 IMPRESSION: 1. 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 Chest/Abdomen/Pelvis CTA 08/25/24 08:42 IMPRESSION: 1. Mild pulmonary edema. 2. Small pleural effusions. 3. Mild emphysema. 4. Small pericardial effusion. 5. Enterocolitis. 6. Arterial occlusive disease. Brain MRI 08/25/24 12:28 IMPRESSION: 1. Mild nonspecific cerebral white matter disease and pontine disease, which likely represents chronic small vessel ischemic disease. Lumbar Puncture Fluoroscopy 08/26/24 11:22 IMPRESSION: 1. Successful fluoro-guided lumbar puncture. Labs Labs: Laboratory Results - last 24 hr 08/26/24 08/27/24 17:38 03:09 WBC 7.5 RBC 6.40 H Hgb 19.6 H Hct 56.2 H MCV 87.8 MCH 30.6 MCHC 34.9 RDW 17.3 H Plt Count 164 MPV 10.9 H Sodium 137 Potassium 3.3 L Chloride 98 Carbon Dioxide 36 H Anion Gap 3 L BUN 40 H Creatinine 0.70 Estim Creat Clear Calc 44 Estimated GFR > 60 Glucose 118 H Calcium 9.0 Phosphorus 4.0 Magnesium 1.9 Total Bilirubin 1.5 H AST 28 ALT 18 Alkaline Phosphatase 107 Total Protein 7.0 Albumin 4.0 Vitamin B12 313.0 Vitamin D 25-Hydroxy 22.8 Folate 7.2 TSH 2.170
[2024-08-27 16:43] LABS: Creatinine, Random Urine 6 mg/dL (20-275); Total Prot/Creat ratio mg/mg 4.833 (0.024-0.184); Total Protein/Creatinine Ratio 4833 mg/g creat (24-184)
[2024-08-27 16:47] LABS: Alveolar/Arterial O2 Gradient 29.7 mmHg; Base Excess ABG 5.5 mEq/l (+/-2.0); Carboxyhemoglobin 0.5 % THb (0-2.0); Fractional Inspired Oxygen 21 %; HCO3 ABG 29.7 mEq/l (22.0-26.0); Methemoglobin ABG 0.4 %THb (0-1.5); Oxygen Content ABG 26.5 %vol (16.0-22.0); Oxygen Saturation ABG 95.1 % (95.0-100.0); Oxyhemoglobin 93.2 % THb (90.0-100.0); PCO2 ABG 41.4 mmHg (35.0-45.0); PO2 ABG 70.5 mmHg (80.0-100.0); PO2 FiO2 Ratio Arterial Blood 3.36 %; Reduced Hemoglobin 5.9 %THb (0-5.0); Total Hemoglobin 20.3 g/dL (12.0-18.0); pH ABG 7.474 (7.350-7.450)
[2024-08-27 16:50] LABS: Device ROOM AIR; Modified Allen's Test Pass; Site Drawn RIGHT RADIAL
[2024-08-27] MEDS: SODIUM CHLORIDE 0.9% IV 1,000 ML 75 ML IV CONT (17:34)
[2024-08-27 17:36] LABS: Iron 112 ug/dL (37-170)
[2024-08-27 17:51] LABS: Percent Iron Saturation 59 % (20-50)
[2024-08-28] VITALS (23 sets, daily range): BP systolic 122–153; BP diastolic 77–94; PULSE 74–103; RESP 16–19; TEMP 36.4–36.6; O2SAT 93–100
[2024-08-28] MEDS: IPRATROPIUM 0.5 MG/ALBUTEROL SULFATE 2.5 MG AMPUL.NEB 3 ML INHALATION ×4 (02:56→20:42)
[2024-08-28 04:18] LABS: Hematocrit 59.6 % (37.0-47.0); Hemoglobin 20.3 g/dL (12.0-15.0); Mean Corpuscular HGB Conc 34.1 g/dl (32-36); Mean Corpuscular Hemoglobin 30.4 pg (26-34); Mean Corpuscular Volume 89.4 fl (80-100); Mean Platelet Volume 12.1 fl (7.4-10.4); Platelet Count Result 184 k/mm3 (150-375); Red Blood Count 6.67 M/mm3 (4.2-5.4); White Blood Count 8.1 K/mm3 (4.5-10.0)
[2024-08-28 05:01] LABS: Alanine Aminotransferase 16 U/L (6-35); Albumin Level 3.9 g/dL (3.5-5.1); Alkaline Phosphatase 89 U/L (38-126); Anion Gap 4 mmol/L (4-12); Aspartate Amino Transferase 27 U/L (14-36); Bilirubin,Total 1.2 mg/dL (0.2-1.3); Blood Urea Nitrogen 51 mg/dL (7-17); Calcium 8.9 mg/dL (8.4-10.2); Carbon Dioxide 33 mmol/L (22-30); Chloride 101 mmol/L (98-107); Estimated CRCL calculation 30 ml/min; Estimated Glomerular Filt Rate 56; Glucose 111 mg/dL (65-110); Magnesium 2.1 mg/dL (1.6-2.3); Phosphorus 3.8 mg/dL (2.5-4.5); Potassium 4.1 mmol/L (3.4-5.0); Sodium 138 mmol/L (137-145)
[2024-08-28] MEDS: FLUTICASONE/SALMETEROL 115-21 MCG INHALER 1 PUFF 2 PUFF INHALATION ×2 (07:21→20:42)
[2024-08-28] MEDS: METOPROLOL TARTRATE 25 MG TABLET PO ×2 (09:39→20:31)
[2024-08-28] MEDS: amLODIPine BESYLATE 10 MG TABLET PO (09:39)
[2024-08-28] MEDS: ATORVASTATIN 20 MG TABLET PO (09:39)
[2024-08-28] MEDS: ASPIRIN 81 MG ENTERIC TABLET PO (09:39)
[2024-08-28] MEDS: PANTOPRAZOLE 40 MG TABLET PO ×2 (09:39→20:31)
[2024-08-28 14:44] LABS: Osmolality, Urine 339 mOsm/kg (50-1200)
--- NOTE | 2024-08-28 16:49 | PCSTNOTE ---
Please refer to the Bedside Swallow Evaluation in the EMR. Please note, silent aspiration cannot be ruled out at bedside.
--- NOTE | 2024-08-28 18:39 | PM.IMPN ---
Progress Note: A&P Assessment and Plan (1) Altered mental status: Qualifiers: Altered mental status type: stupor Qualified Code(s): R40.1 - Stupor Code(s): R41.82 - Altered mental status, unspecified Status: Acute (2) Hypertensive urgency: Code(s): I16.0 - Hypertensive urgency Status: Acute (3) Elevated troponin: Code(s): R79.89 - Other specified abnormal findings of blood chemistry Status: Acute (4) Bipolar depression: Code(s): F31.9 - Bipolar disorder, unspecified Status: Acute (5) Peripheral arterial disease: Code(s): I73.9 - Peripheral vascular disease, unspecified Status: Acute Plan AMS - Patient has not been acting right since August 21. She has not been taking her medications. CT of her brain was negative for any acute intracranial process. LFTs were within normal limit. UA clear. UDS was positive for cannabinoids. TSH was normal at 1.69. Salicylate less than 1. Acetaminophen less than 10 Ethyl alcohol less than 10. VBG 7.38/43/41/25. Neurology consulted. Brain MRI with mild nonspecific cerebral white matter disease and point time disease which likely represents chronic small vessel ischemic disease. LP was performed. Negative for bacterial meningitis. EEG with diffuse slowing without any seizure activity. HSV PCR CSF pending. She is not on acyclovir. ST evaluated patient today and diet adjusted. Continue to follow. HTN emergency - On arrival to the ED blood pressure was 199/108. She received IV fluids in the ER. She became acutely hypoxic and required 4 L via nasal cannula. Received a dose of IV Lasix with excellent urine output. Patient was admitted to the ICU. Patient was started on nicardipine drip which has been tapered off now. BP stable on oral agents. Weaned to room air Polycythemia - Hgb 18.6. and remains elevated at 20 today. JAK2 ordered. Renal function was normal. Renal artery stenosis moderate. Check Eeythropoetin level Elevated Trop - Troponin was elevated at 0.138. Serial troponin 0.138-0.119. Possible elevated Trop related to hypertensive encephalopathy. Echo 08/26/2024 with EF 50% no valvular abnormality moderate pericardial effusion. Cardiology was consulted for elevated troponin. Flat trend unlikely to be ACS. Ischemic evaluation as an outpatient basis. Enterocolitis - CT of the chest abdomen pelvis demonstrated cardiomegaly emphysematous changes, bladder cystitis and/or multilevel segmental enterocolitis. She reported no diarrhea. She has been afebrile. No abd pain. Bipolar d/o - resume some of her home meds at lower doses. Hold duloxetine and clonazepam for now. PAD - Moderate stenosis of celiac axis and superior stenosis of the inferior mesenteric artery. Severe stenosis right common iliac artery DVT prophylaxis - SCDs Code status - full Subjective Date/time seen: 08/28/24 18:39 Interval history: 59yo female with bipolar disorder and RA here for AMS. Assuming care. Chart reviewed. Complains of chronic foot pain froom neuropathy. She is alert but confused so hx is unreliable. She denies CP ro SOB. No cough. She states she ran out of her medications but unclear on how long she has been out of her meds. She admits to smoking marijuana that she buys from a dealer. Exam Narrative: AF 97.5 122/90 103 16 95% ra Gen - NARD Chest - distant, clear BS. nml RR CV - RRR S1/S2. Tele showing no significant dysrhythmias Abd - Soft, NT/ND, Positive BS Ext - No pedal edema Neuro - Alert but confused. oriented to location only. Psych - Nml mood and affect Skin - Warm and dry Objective Data Vital Signs Vital Signs: Vital Signs - 24 hr 08/27/24 20:18 08/27/24 20:37 08/27/24 20:45 Temperature 97.4 F L Pulse Rate 78 77 78 Respiratory Rate 17 18 18 Blood Pressure 134/81 Pulse Oximetry 95 Oxygen Delivery 08/27/24 21:04 08/27/24 20:00 08/27/24 20:00 Temperature Pulse Rate 81 78 Respiratory Rate Blood Pressure Pulse Oximetry Oxygen Delivery Room Air 08/28/24 00:14 08/28/24 00:00 08/28/24 00:00 Temperature 97.7 F Pulse Rate 82 80 Respiratory Rate 16 Blood Pressure 142/87 H Pulse Oximetry 94 Oxygen Delivery Room Air 08/28/24 02:58 08/28/24 03:10 08/28/24 04:00 Temperature Pulse Rate 78 79 Respiratory Rate 18 18 Blood Pressure Pulse Oximetry Oxygen Delivery Room Air 08/28/24 04:20 08/28/24 04:00 08/28/24 07:20 Temperature 97.9 F Pulse Rate 81 82 81 Respiratory Rate 17 16 Blood Pressure 139/85 Pulse Oximetry 93 95 Oxygen Delivery Room Air 08/28/24 07:20 08/28/24 07:30 08/28/24 08:00 Temperature 97.7 F Pulse Rate 81 83 83 Respiratory Rate 16 16 16 Blood Pressure 153/94 H Pulse Oximetry 93 Oxygen Delivery 08/28/24 09:39 08/28/24 08:00 08/28/24 08:00 Temperature Pulse Rate 85 83 Respiratory Rate Blood Pressure Pulse Oximetry Oxygen Delivery Room Air 08/28/24 10:00 08/28/24 11:38 08/28/24 12:00 Temperature 97.5 F L Pulse Rate 88 77 Respiratory Rate 19 Blood Pressure 132/94 H Pulse Oximetry 94 Oxygen Delivery Room Air 08/28/24 12:00 08/28/24 13:05 08/28/24 13:15 Temperature Pulse Rate 74 75 81 Respiratory Rate 16 18 Blood Pressure Pulse Oximetry Oxygen Delivery 08/28/24 14:00 08/28/24 13:52 08/28/24 16:00 Temperature 97.5 F L Pulse Rate 88 79 Respiratory Rate 16 Blood Pressure 122/90 Pulse Oximetry 95 Oxygen Delivery Room Air 08/28/24 16:00 08/28/24 16:00 08/28/24 18:08 Temperature Pulse Rate 79 103 H Respiratory Rate Blood Pressure Pulse Oximetry Oxygen Delivery Room Air Intake/Output Intake/Output: Intake & Output 08/25/24 08/26/24 08/27/24 08/28/24 23:59 23:59 23:59 23:59 Intake Total 1724.6 50 240 1720 Output Total 1200 400 100 600 Balance 524.6 -440 996 7686 Meds/Results Medications: Active Medications Generic Name Dose Route Start Last Admin Trade Name Freq PRN Reason Stop Dose Admin Albuterol/Ipratropium 3 ml 08/25/24 14:00 08/28/24 13:05 Ipratropium 0.5 Mg/Albuterol Sulfate 2.5 Mg Ampul.Neb 3 Ml INHALATION 3 ml Q6HRT SOLOMON Administration Amlodipine Besylate 10 mg 08/26/24 09:05 08/28/24 09:39 Amlodipine Besylate 10 Mg Tablet PO 10 mg DAILY SOLOMON Administration Aspirin 81 mg 08/27/24 09:00 12/04/24 09:39 Aspirin 81 Mg Enteric Tablet PO 81 mg QAM SOLOMON Administration Atorvastatin Calcium 20 mg 08/27/24 09:00 08/28/24 09:39 Atorvastatin 20 Mg Tablet PO 20 mg DAILY SOLOMON Administration Hydralazine HCl 10 mg 08/25/24 10:02 08/27/24 06:52 Hydralazine Hcl 20 Mg/Ml Vial IV PUSH 10 mg Q4H PRN Administration Blood Pressure - High Labetalol HCl 20 mg 08/26/24 09:06 08/27/24 04:59 Labetalol Hcl Inj 100 Mg/20 Ml Vial IV PUSH 20 mg Q4H PRN Administration Hypertension SBP > 160 Metoprolol Tartrate 25 mg 08/26/24 21:00 08/28/24 09:39 Metoprolol Tartrate 25 Mg Tablet PO 25 mg Q12HR SOLOMON Administration Pantoprazole Sodium 40 mg 08/25/24 09:00 08/28/24 09:39 Pantoprazole 40 Mg Tablet PO 40 mg Q12HR SOLOMON Administration Fluticasone/Salmeterol 2 puff 08/25/24 08:00 08/28/24 07:21 Fluticasone/Salmeterol 115-21 Mcg Inhaler 1 Puff INHALATION 2 puff Q12HRT SOLOMON Administration Radiology Results: ITS Impressions Chest X-Ray 08/25/24 06:21 IMPRESSION: 1. Mild pulmonary edema. Head CT 08/25/24 07:26 IMPRESSION: 1. Mild nonspecific cerebral white matter disease, which likely represents chronic small vessel ischemic disease. Chest/Abdomen/Pelvis CTA 08/25/24 08:42 IMPRESSION: 1. Mild pulmonary edema. 2. Small pleural effusions. 3. Mild emphysema. 4. Small pericardial effusion. 5. Enterocolitis. 6. Arterial occlusive disease. Brain MRI 08/25/24 12:28 IMPRESSION: 1. Mild nonspecific cerebral white matter disease and pontine disease, which likely represents chronic small vessel ischemic disease. Lumbar Puncture Fluoroscopy 08/26/24 11:22 IMPRESSION: 1. Successful fluoro-guided lumbar puncture. Labs Labs: Laboratory Results - last 24 hr 08/25/24 08/28/24 04:48 03:40 WBC 8.1 RBC 6.67 H Hgb 20.3 H Hct 59.6 H MCV 89.4 MCH 30.4 MCHC 34.1 RDW 18.0 H Plt Count 184 MPV 12.1 H Sodium 138 Potassium 4.1 Chloride 101 Carbon Dioxide 33 H Anion Gap 4 BUN 51 H D Creatinine 1.00 Estim Creat Clear Calc 30 Estimated GFR 56 L Glucose 111 H Calcium 8.9 Phosphorus 3.8 Magnesium 2.1 Total Bilirubin 1.2 AST 27 ALT 16 Alkaline Phosphatase 89 Total Protein 7.0 Albumin 3.9 Urine Osmolality 339 Urine Albumin 80 U [id number] 6 U [id number] 4 U Beta Globulin 5 U Gamma Globulin 6 Urine PEP Interpret See note
[2024-08-28] MEDS: GABAPENTIN 100 MG CAPSULE PO (20:31)
[2024-08-29] VITALS (13 sets, daily range): BP systolic 121–155; BP diastolic 74–87; PULSE 71–95; RESP 16–24; TEMP 35.9–36.7; O2SAT 92–100
[2024-08-29 00:53] LABS: Herpes Simplex Type 1 DNA PCR NOT DETECTED; Herpes Simplex Type 2 DNA PCR NOT DETECTED
[2024-08-29] MEDS: IPRATROPIUM 0.5 MG/ALBUTEROL SULFATE 2.5 MG AMPUL.NEB 3 ML INHALATION ×4 (02:55→20:49)
[2024-08-29 04:21] LABS: Hematocrit 53.3 % (37.0-47.0); Hemoglobin 18.2 g/dL (12.0-15.0); Mean Corpuscular HGB Conc 34.1 g/dl (32-36); Mean Corpuscular Hemoglobin 30.3 pg (26-34); Mean Corpuscular Volume 88.7 fl (80-100); Mean Platelet Volume 11.4 fl (7.4-10.4); Platelet Count Result 182 k/mm3 (150-375); Red Blood Count 6.01 M/mm3 (4.2-5.4); Red Cell Distribution Width 17.1 % (11.5-14.5); White Blood Count 10.4 K/mm3 (4.5-10.0)
[2024-08-29 04:35] LABS: Alanine Aminotransferase 18 U/L (6-35); Albumin Level 3.6 g/dL (3.5-5.1); Alkaline Phosphatase 82 U/L (38-126); Anion Gap -1 mmol/L (4-12); Aspartate Amino Transferase 33 U/L (14-36); Bilirubin,Total 1.2 mg/dL (0.2-1.3); Blood Urea Nitrogen 43 mg/dL (7-17); Calcium 8.8 mg/dL (8.4-10.2); Carbon Dioxide 35 mmol/L (22-30); Chloride 101 mmol/L (98-107); Estimated CRCL calculation 34 ml/min; Estimated Glomerular Filt Rate 56; Glucose 103 mg/dL (65-110); Phosphorus 2.6 mg/dL (2.5-4.5); Potassium 3.6 mmol/L (3.4-5.0); Sodium 135 mmol/L (137-145)
[2024-08-29] MEDS: SODIUM CHLOR 3% 15 ML NEB (RESPIRATORY THERAPY) 6 ML INHALATION (05:40)
[2024-08-29] MEDS: FLUTICASONE/SALMETEROL 115-21 MCG INHALER 1 PUFF 2 PUFF INHALATION ×2 (07:47→20:50)
[2024-08-29] MEDS: ATORVASTATIN 20 MG TABLET PO (08:16)
[2024-08-29] MEDS: FLUoxetine HCL 20 MG CAPSULE PO (08:16)
[2024-08-29] MEDS: ASPIRIN 81 MG ENTERIC TABLET PO (08:16)
[2024-08-29] MEDS: FERROUS SULFATE 325 MG TABLET DR PO (08:16)
[2024-08-29] MEDS: amLODIPine BESYLATE 10 MG TABLET PO (08:16)
[2024-08-29] MEDS: GABAPENTIN 100 MG CAPSULE PO ×3 (08:17→18:00)
[2024-08-29] MEDS: METOPROLOL TARTRATE 25 MG TABLET PO ×2 (08:17→20:09)
[2024-08-29] MEDS: PANTOPRAZOLE 40 MG TABLET PO ×2 (08:17→20:09)
[2024-08-29 08:18] LABS: Vitamin B6 3.6 ng/mL (2.1-21.7)
--- NOTE | 2024-08-29 09:41 | PC.NURSE ---
This patient, Sherrie Jensen, was received from [ICU-3] on 08/29/24 at 0940. Patient/family oriented to unit policies and routines
--- NOTE | 2024-08-29 10:03 | PC.NURSE ---
This patient, Sherrie Jensen, was transferred to [[facility] ] on 08/29/24 at 0935. Personal belongings sent with patient. Report given to [ [email or web address] ]. Appropriate documentation sent with patient. Spoke with sister Phoebe. Phoebe has all patient belongings including medications that were at the nurses station/lock box
--- NOTE | 2024-08-29 10:09 | PM.IMPN ---
Progress Note: A&P Assessment and Plan (1) Altered mental status: Qualifiers: Altered mental status type: stupor Qualified Code(s): R40.1 - Stupor Code(s): R41.82 - Altered mental status, unspecified Status: Acute Assessment and Plan: Patient has not been acting right since August 21. She has not been taking her medications. CT of her brain was negative for any acute intracranial process. LFTs were within normal limit. UA clear. UDS was positive for cannabinoids. TSH normal at 1.69. Salicylate <1. Acetaminophen <10. Ethyl alcohol <10. VBG 7.38/43/41/25. Neurology consulted. Brain MRI with mild nonspecific cerebral white matter disease and pontine disease which likely represents chronic small vessel ischemic disease. LP was performed. Negative for bacterial meningitis. HSV PCR negative EEG with diffuse slowing without any seizure activity. ST evaluated patient today and diet adjusted. Added back some of her home medications and her mental status slowly improving. Continue to follow. (2) Hypertensive urgency: Code(s): I16.0 - Hypertensive urgency Status: Acute Assessment and Plan: On arrival to the ED blood pressure was 199/108. She received IV fluids in the ER. She became acutely hypoxic and required 4 L via nasal cannula. Received a dose of IV Lasix with excellent urine output. Patient was admitted to the ICU. Patient was started on nicardipine drip and oral agents added. Able to taper off nicardipine. BP stable on oral agents. Weaned to room air. Check cortisol level. (3) Pericardial effusion: Code(s): I31.39 - Other pericardial effusion (noninflammatory) Status: Acute Assessment and Plan: As above. No mention of tamponade. Will discuss with Cardiology. (4) Polycythemia: Code(s): D75.1 - Secondary polycythemia Status: Acute Assessment and Plan: Hgb 18.6 on admission. She has had elevated Hgb in the past. Hgb remains elevated to as high as 20.3. JAK2 ordered. Erytropoetin level ordered. Renal function was normal. Renal artery stenosis moderate. Iron is normal but low TIBC. Ferritin 415. Hgb better today. Follow. Continue ASA. Heme evaluation as outpatient. (5) Elevated troponin: Code(s): R79.89 - Other specified abnormal findings of blood chemistry Status: Acute Assessment and Plan: Troponin was elevated at 0.138 but flat on repeat. Possible elevated Trop related to hypertensive urgency Echo 08/26/24; mild concentric LVH with EF 50%, no valvular abnormality and moderate pericardial effusion. Cardiology was consulted. Flat trend unlikely to be ACS. Ischemic evaluation as an outpatient basis. (6) Bipolar depression: Code(s): F31.9 - Bipolar disorder, unspecified Status: Acute Assessment and Plan: Resumed some of her home meds at lower doses. She tolerated this well. Mood stable Continue to monitor (7) Peripheral arterial disease: Code(s): I73.9 - Peripheral vascular disease, unspecified Status: Acute Assessment and Plan: Imaging showing moderate stenosis of celiac axis and superior stenosis of the inferior mesenteric artery. Severe stenosis right common iliac artery. Moderate stenosis of the renal arteries. Consider renal artery stenosis as the etiology of her polycythemia and HTN Continue ASA and Lipitor Plan Enterocolitis - CT of the chest abdomen pelvis demonstrated cardiomegaly emphysematous changes, bladder cystitis and/or multilevel segmental enterocolitis. She reported no diarrhea. She has been afebrile. No abd pain. Follow clinically. GNW - PT/OT DVT prophylaxis - SCDs, Lovenox Code status - full Subjective Date/time seen: 08/29/24 10:09 Interval history: 59yo female with bipolar disorder and RA here for AMS. Slept some last night and better than the last few days. Was up to a chair. No CP or SOB. Feels less confused. RN states patient off balance when walking Exam Narrative: AF 98.1 155/87 95 20 93% ra Gen - NARD Chest - distant, clear BS. nml RR CV - RRR S1/S2. Tele showing no significant dysrhythmias Abd - Soft, NT/ND, Positive BS Ext - No pedal edema Neuro - Alert and oriented x4. No focal weakness. heel to [place] okay but had trouble following commands. finger to nose normal. Rapid alternating movements okay. speech clearer and less delay when answering Psych - Nml mood and affect Skin - Warm and dry Objective Data Vital Signs Vital Signs: Vital Signs - 24 hr 08/28/24 11:38 08/28/24 12:00 08/28/24 12:00 Temperature 97.5 F L Pulse Rate 77 74 Respiratory Rate 19 Blood Pressure 132/94 H Pulse Oximetry 94 Oxygen Delivery Room Air 08/28/24 13:05 08/28/24 13:15 08/28/24 14:00 Temperature Pulse Rate 75 81 88 Respiratory Rate 16 18 Blood Pressure Pulse Oximetry Oxygen Delivery 08/28/24 13:52 08/28/24 16:00 08/28/24 16:00 Temperature 97.5 F L Pulse Rate 79 Respiratory Rate 16 Blood Pressure 122/90 Pulse Oximetry 95 Oxygen Delivery Room Air Room Air 08/28/24 16:00 08/28/24 18:08 08/28/24 20:31 Temperature Pulse Rate 79 103 H 75 Respiratory Rate Blood Pressure Pulse Oximetry Oxygen Delivery 08/28/24 20:45 08/28/24 20:45 08/28/24 20:00 Temperature Pulse Rate 80 Respiratory Rate 18 Blood Pressure Pulse Oximetry 96 Oxygen Delivery Room Air Room Air 08/28/24 20:48 08/28/24 20:00 08/29/24 00:00 Temperature 97.8 F Pulse Rate 79 76 79 Respiratory Rate 19 17 Blood Pressure 135/77 135/79 Pulse Oximetry 100 93 Oxygen Delivery 08/28/24 20:58 08/29/24 04:53 08/29/24 02:57 Temperature Pulse Rate 82 82 80 Respiratory Rate 18 19 18 Blood Pressure 136/80 Pulse Oximetry 92 Oxygen Delivery 08/29/24 03:07 08/29/24 07:47 08/29/24 07:47 Temperature Pulse Rate 83 78 Respiratory Rate 18 18 Blood Pressure Pulse Oximetry 95 Oxygen Delivery Room Air 08/29/24 08:01 08/29/24 08:17 08/29/24 08:00 Temperature 98.1 F Pulse Rate 77 95 93 Respiratory Rate 20 24 H Blood Pressure 155/87 H Pulse Oximetry 93 Oxygen Delivery Intake/Output Intake/Output: Intake & Output 08/26/24 08/27/24 08/28/24 08/29/24 23:59 23:59 23:59 23:59 Intake Total 50 240 1720 240 Output Total 400 100 600 350 Balance -454 733 4736 -110 Meds/Results Medications: Active Medications Generic Name Dose Route Start Last Admin Trade Name Freq PRN Reason Stop Dose Admin Albuterol/Ipratropium 3 ml 08/25/24 14:00 08/29/24 07:44 Ipratropium 0.5 Mg/Albuterol Sulfate 2.5 Mg Ampul.Neb 3 Ml INHALATION 3 ml Q6HRT [facility] Administration Amlodipine Besylate 10 mg 08/26/24 09:05 08/29/24 08:16 Amlodipine Besylate 10 Mg Tablet PO 10 mg DAILY [facility] Administration Aspirin 81 mg 08/27/24 09:00 08/29/24 08:16 Aspirin 81 Mg Enteric Tablet PO 81 mg QAM [facility] Administration Atorvastatin Calcium 20 mg 08/29/24 09:00 08/29/24 08:16 Atorvastatin 20 Mg Tablet PO 20 mg DAILY [facility] Administration Ferrous Sulfate 325 mg 08/29/24 09:00 08/29/24 08:16 Ferrous Sulfate [address] PO 325 mg DAILY [facility] Administration Fluoxetine HCl 20 mg 08/29/24 09:00 08/29/24 08:16 Fluoxetine Hcl 20 Mg Capsule PO 20 mg DAILY [facility] Administration Gabapentin 100 mg 08/28/24 19:30 08/29/24 08:17 Gabapentin 100 Mg Capsule PO 100 mg TID [facility] Administration Hydralazine HCl 10 mg 08/25/24 10:02 08/27/24 06:52 Hydralazine Hcl 20 Mg/Ml Vial IV PUSH 10 mg Q4H PRN Administration Blood Pressure - High Labetalol HCl 20 mg 08/26/24 09:06 08/27/24 04:59 Labetalol Hcl Inj 100 Mg/20 Ml Vial IV PUSH 20 mg Q4H PRN Administration Hypertension SBP > 160 Metoprolol Tartrate 25 mg 08/26/24 21:00 08/29/24 08:17 Metoprolol Tartrate 25 Mg Tablet PO 25 mg Q12HR [facility] Administration Pantoprazole Sodium 40 mg 08/25/24 09:00 08/29/24 08:17 Pantoprazole 40 Mg Tablet PO 40 mg Q12HR [facility] Administration Fluticasone/Salmeterol 2 puff 08/25/24 08:00 08/29/24 07:47 Fluticasone/Salmeterol 115-21 Mcg Inhaler 1 Puff INHALATION 2 puff Q12HRT [facility] Administration Trazodone HCl 25 mg 08/28/24 21:00 08/29/24 03:56 Trazodone Hcl 25 Mg Tablet PO Not Given HS [facility] Radiology Results: ITS Impressions Chest X-Ray 08/25/24 06:21 IMPRESSION: 1. Mild pulmonary edema. Head CT 08/25/24 07:26 IMPRESSION: 1. Mild nonspecific cerebral white matter disease, which likely represents chronic small vessel ischemic disease. Chest/Abdomen/Pelvis CTA 08/25/24 08:42 IMPRESSION: 1. Mild pulmonary edema. 2. Small pleural effusions. 3. Mild emphysema. 4. Small pericardial effusion. 5. Enterocolitis. 6. Arterial occlusive disease. Brain MRI 08/25/24 12:28 IMPRESSION: 1. Mild nonspecific cerebral white matter disease and pontine disease, which likely represents chronic small vessel ischemic disease. Lumbar Puncture Fluoroscopy 08/26/24 11:22 IMPRESSION: 1. Successful fluoro-guided lumbar puncture. Labs Labs: Laboratory Results - last 24 hr 08/25/24 08/26/24 08/26/24 04:48 10:38 17:36 WBC RBC Hgb Hct MCV MCH MCHC RDW Plt Count MPV Sodium Potassium Chloride Carbon Dioxide Anion Gap BUN Creatinine Estim Creat Clear Calc Estimated GFR Glucose Calcium Phosphorus Magnesium Total Bilirubin AST ALT Alkaline Phosphatase Total Protein Albumin Vitamin B6 3.6 Urine Osmolality 339 Urine Albumin 80 U [id number]-9-Oepljyxo 6 U Wxmcg-4-Ykdtsfxk 4 U Beta Globulin 5 U Gamma Globulin 6 U Abnormal Prot Band 1 Not Reportable U Abnormal Prot Band 2 Not Reportable U Abnormal Prot Band 3 Not Reportable Urine PEP Interpret See note CSF Herpes I DNA (PCR) Not detected CSF Herpes II DNA (PCR) Not detected HSV (PCR) Source Cerebrospinal fluid 08/29/24 04:00 WBC 10.4 H RBC 6.01 H Hgb 18.2 H Hct 53.3 H MCV 88.7 MCH 30.3 MCHC 34.1 RDW 17.1 H Plt Count 182 MPV 11.4 H Sodium 135 L Potassium 3.6 Chloride 101 Carbon Dioxide 35 H Anion Gap -1 L BUN 43 H Creatinine 1.00 Estim Creat Clear Calc 34 Estimated GFR 56 L Glucose 103 Calcium 8.8 Phosphorus 2.6 Magnesium 2.0 Total Bilirubin 1.2 AST 33 ALT 18 Alkaline Phosphatase 82 Total Protein 7.0 Albumin 3.6 Vitamin B6 Urine Osmolality Urine Albumin U Bmewr-9-Icdhfcyc U Bgfug-6-Jiaxmmps U Beta Globulin U Gamma Globulin U Abnormal Prot Band 1 U Abnormal Prot Band 2 U Abnormal Prot Band 3 Urine PEP Interpret CSF Herpes I DNA (PCR) CSF Herpes II DNA (PCR) HSV (PCR) Source
--- NOTE | 2024-08-29 12:04 | PCNFU ---
Nutrition Follow-Up Complete: Severe protein calorie malnutrition related to chronic illness as evidenced by intake <75% needs >1 month; severe muscle wasting (temporalis, clavicles, shoulders) and severe fat loss (buccal fat pads, ribs) Goal: Diet advancement Optimize PO intake when diet is advanced Patient is progressing towards goal. We will continue current goal. Pt current nutrition is Minced and Moist, Level 5. Last recorded weight is 41.4 kg, up from 37.9 kg on admit. Bowel Motility: No BM reported at this time. Labs Reviewed: BUN 43, GFR 56 Meds Noted:Lopressor, Lipitor, Protonix. Skin: WNL Additional Notes: Patient had Bedside Swallow on 08/28 recommending modified diet of Minced and Moist,Level 5. Intake is improving-breakfast today > 75% of meals. Diet supplements remain on trays BID for additional 220 kcal and 9 gm protein needs. Speech continues to follow for swallowing therapy. Monitoring diet orders, weights, labs, plan of care Follow daily in ICU rounds, follow up every 5 days
[2024-08-29] MEDS: ENOXAPARIN 40 MG/0.4 ML SYRINGE SUB-Q (12:33)
[2024-08-29 13:14] LABS: Vitamin B1 <6 nmol/L (8-30)
[2024-08-29 16:53] LABS: West Nile Virus, IgM <0.90 index
--- NOTE | 2024-08-29 17:04 | WPDNEUROPN ---
Progress Note: A&P Assessment and Plan (1) Encephalopathy, hypertensive: Code(s): I67.4 - Hypertensive encephalopathy Status: Acute (2) Bipolar depression: Code(s): F31.9 - Bipolar disorder, unspecified Status: Acute (3) Polycythemia: Code(s): D75.1 - Secondary polycythemia Status: Acute (4) Peripheral arterial disease: Code(s): I73.9 - Peripheral vascular disease, unspecified Status: Acute Time Spent With Patient Time: The patient has remarkably improved and at this time there does not appear to be any evidence for encephalitis. With that she had hypertensive encephalopathy or an expression of bipolar disorder is difficult to decide but probably it could have been hypertensive encephalopathy. She has responded well to the treatment So far. Subjective Date/time seen: 08/29/24 17:04 Interval history: 59-year-old with history of altered mental status is much better now. She denies any significant problem but wants something to get to sleep. She ostomy if I could prescribe a trazodone. She does have history of bipolar disorder. Initially she presented with the hypertensive encephalopathy. Her white cell count was high at 13.6. Blood pressure was high and required treatment for the same intensive care unit. Spinal tap did not show any evidence for encephalitis. MRI of the brain did not show any significant abnormalities except for mild white matter changes. Review of Systems Review of Systems: All systems reviewed & are unremarkable except as noted in HPI and below Exam Const: General: cooperative, well developed and alert Orientation/consciousness: patient oriented x3 HENMT: Head: atraumatic Eyes: Alignment and Position: position normal Pupils: Equal, round and reactive pupils present EOM: EOMs intact bilaterally Neck: Neck: supple Resp: Effort & Inspection: normal respiratory effort Neuro: General: patient oriented x3 Cranial nerves: Yes CN's II-XII intact bilaterally, Yes facial sensation intact/muscles of mastication intact, Yes Equal, round and reactive pupils present, Yes facial symmetry and Yes Midline tongue present Cognition (Neuro): normal cognition Speech: normal speech Motor exam (neuro): 5/5 motor strength present throughout Coordination: [id number] test normal and Normal rapid alternating movements of the distal upper extremity present (Neuro) Objective Data Vital Signs Vital Signs: Vital Signs - 24 hr 08/28/24 18:08 08/28/24 20:31 08/28/24 20:45 Temperature Pulse Rate 103 H 75 Respiratory Rate Blood Pressure Pulse Oximetry 96 Oxygen Delivery Room Air 08/28/24 20:45 08/28/24 20:00 08/28/24 20:48 Temperature 97.8 F Pulse Rate 80 79 Respiratory Rate 18 19 Blood Pressure 135/77 Pulse Oximetry 100 Oxygen Delivery Room Air 08/28/24 20:00 08/29/24 00:00 08/28/24 20:58 Temperature Pulse Rate 76 79 82 Respiratory Rate 17 18 Blood Pressure 135/79 Pulse Oximetry 93 Oxygen Delivery 08/29/24 04:53 08/29/24 02:57 08/29/24 03:07 Temperature Pulse Rate 82 80 83 Respiratory Rate 19 18 18 Blood Pressure 136/80 Pulse Oximetry 92 Oxygen Delivery 08/29/24 07:47 08/29/24 07:47 08/29/24 08:01 Temperature Pulse Rate 78 77 Respiratory Rate 18 20 Blood Pressure Pulse Oximetry 95 Oxygen Delivery Room Air 08/29/24 08:17 08/29/24 08:00 08/29/24 08:00 Temperature 98.1 F Pulse Rate 95 93 Respiratory Rate 24 H Blood Pressure 155/87 H Pulse Oximetry 93 Oxygen Delivery Room Air 08/29/24 10:16 08/29/24 10:00 08/29/24 14:00 Temperature 98.0 F 97.8 F Pulse Rate 91 84 Respiratory Rate 18 16 Blood Pressure 121/79 130/75 Pulse Oximetry 97 100 Oxygen Delivery Room Air Intake/Output Intake/Output: Intake & Output 08/26/24 08/27/24 08/28/24 08/29/24 23:59 23:59 23:59 23:59 Intake Total 50 240 1720 770 Output Total 400 100 600 350 Balance -598 419 7586 420 Meds/Results Medications: Active Medications Generic Name Dose Route Start Last Admin Trade Name Freq PRN Reason Stop Dose Admin Albuterol/Ipratropium 3 ml 08/25/24 14:00 08/29/24 07:44 Ipratropium 0.5 Mg/Albuterol Sulfate 2.5 Mg Ampul.Neb 3 Ml INHALATION 3 ml Q6HRT [facility] Administration Amlodipine Besylate 10 mg 08/26/24 09:05 08/29/24 08:16 Amlodipine Besylate 10 Mg Tablet PO 10 mg DAILY [facility] Administration Aspirin 81 mg 08/27/24 09:00 08/29/24 08:16 Aspirin 81 Mg Enteric Tablet PO 81 mg QAM [facility] Administration Atorvastatin Calcium 20 mg 08/29/24 09:00 08/29/24 08:16 Atorvastatin 20 Mg Tablet PO 20 mg DAILY [facility] Administration Enoxaparin Sodium 40 mg 08/30/24 09:00 Enoxaparin 40 Mg/0.4 Ml Syringe SUB-Q DAILY [facility] Fluoxetine HCl 20 mg 08/29/24 09:00 08/29/24 08:16 Fluoxetine Hcl 20 Mg Capsule PO 20 mg DAILY [facility] Administration Gabapentin 100 mg 08/28/24 19:30 08/29/24 12:33 Gabapentin 100 Mg Capsule PO 100 mg TID [facility] Administration Hydralazine HCl 10 mg 08/25/24 10:02 08/27/24 06:52 Hydralazine Hcl 20 Mg/Ml Vial IV PUSH 10 mg Q4H PRN Administration Blood Pressure - High Labetalol HCl 20 mg 08/26/24 09:06 08/27/24 04:59 Labetalol Hcl Inj 100 Mg/20 Ml Vial IV PUSH 20 mg Q4H PRN Administration Hypertension SBP > 160 Metoprolol Tartrate 25 mg 08/26/24 21:00 08/29/24 08:17 Metoprolol Tartrate 25 Mg Tablet PO 25 mg Q12HR [facility] Administration Pantoprazole Sodium 40 mg 08/25/24 09:00 08/29/24 08:17 Pantoprazole 40 Mg Tablet PO 40 mg Q12HR [facility] Administration Fluticasone/Salmeterol 2 puff 08/25/24 08:00 08/29/24 07:47 Fluticasone/Salmeterol 115-21 Mcg Inhaler 1 Puff INHALATION 2 puff Q12HRT [facility] Administration Trazodone HCl 25 mg 08/28/24 21:00 08/29/24 03:56 Trazodone Hcl 25 Mg Tablet PO Not Given [facility] Radiology Results: ITS Impressions Chest X-Ray 08/25/24 06:21 IMPRESSION: 1. Mild pulmonary edema. Head CT 08/25/24 07:26 IMPRESSION: 1. Mild nonspecific cerebral white matter disease, which likely represents chronic small vessel ischemic disease. Chest/Abdomen/Pelvis CTA 08/25/24 08:42 IMPRESSION: 1. Mild pulmonary edema. 2. Small pleural effusions. 3. Mild emphysema. 4. Small pericardial effusion. 5. Enterocolitis. 6. Arterial occlusive disease. Brain MRI 08/25/24 12:28 IMPRESSION: 1. Mild nonspecific cerebral white matter disease and pontine disease, which likely represents chronic small vessel ischemic disease. Lumbar Puncture Fluoroscopy 08/26/24 11:22 IMPRESSION: 1. Successful fluoro-guided lumbar puncture. Labs Labs: Laboratory Results - last 24 hr 08/25/24 08/25/24 08/26/24 04:48 09:56 10:38 WBC RBC Hgb Hct MCV MCH MCHC RDW Plt Count MPV Sodium Potassium Chloride Carbon Dioxide Anion Gap BUN Creatinine Estim Creat Clear Calc Estimated GFR Glucose Calcium Phosphorus Magnesium Total Bilirubin AST ALT Alkaline Phosphatase Total Protein Albumin Vitamin B1 Vitamin B6 Random Cortisol U Abnormal Prot Band 1 Not Reportable U Abnormal Prot Band 2 Not Reportable U Abnormal Prot Band 3 Not Reportable CSF Herpes I DNA (PCR) Not detected CSF Herpes II DNA (PCR) Not detected West Nile Virus IgM Ab <0.90 HSV (PCR) Source Cerebrospinal fluid 08/26/24 08/29/24 17:36 04:00 WBC 10.4 H RBC 6.01 H Hgb 18.2 H Hct 53.3 H MCV 88.7 MCH 30.3 MCHC 34.1 RDW 17.1 H Plt Count 182 MPV 11.4 H Sodium 135 L Potassium 3.6 Chloride 101 Carbon Dioxide 35 H Anion Gap -1 L BUN 43 H Creatinine 1.00 Estim Creat Clear Calc 34 Estimated GFR 56 L Glucose 103 Calcium 8.8 Phosphorus 2.6 Magnesium 2.0 Total Bilirubin 1.2 AST 33 ALT 18 Alkaline Phosphatase 82 Total Protein 7.0 Albumin 3.6 Vitamin B1 <6 L Vitamin B6 3.6 Random Cortisol 25.30 U Abnormal Prot Band 1 U Abnormal Prot Band 2 U Abnormal Prot Band 3 CSF Herpes I DNA (PCR) CSF Herpes II DNA (PCR) West Nile Virus IgM Ab HSV (PCR) Source
[2024-08-29] MEDS: traZODone HCL 50 MG TABLET PO (20:09)
[2024-08-30] VITALS (11 sets, daily range): BP systolic 106–143; BP diastolic 61–75; PULSE 80–92; RESP 12–20; TEMP 36.1–37.1; O2SAT 94–99
[2024-08-30] MEDS: IPRATROPIUM 0.5 MG/ALBUTEROL SULFATE 2.5 MG AMPUL.NEB 3 ML INHALATION ×4 (02:13→19:40)
[2024-08-30 06:08] LABS: Hemoglobin 17.3 g/dL (12.0-15.0); Mean Corpuscular HGB Conc 33.3 g/dl (32-36); Mean Corpuscular Hemoglobin 29.7 pg (26-34); Mean Corpuscular Volume 89.2 fl (80-100); Mean Platelet Volume 12.6 fl (7.4-10.4); Platelet Count Result 176 k/mm3 (150-375); Red Blood Count 5.83 M/mm3 (4.2-5.4); Red Cell Distribution Width 16.9 % (11.5-14.5); White Blood Count 9.8 K/mm3 (4.5-10.0)
[2024-08-30 06:24] LABS: Alanine Aminotransferase 26 U/L (6-35); Albumin Level 3.5 g/dL (3.5-5.1); Alkaline Phosphatase 82 U/L (38-126); Anion Gap -3 mmol/L (4-12); Aspartate Amino Transferase 51 U/L (14-36); Bilirubin,Total 1.2 mg/dL (0.2-1.3); Blood Urea Nitrogen 26 mg/dL (7-17); Calcium 8.6 mg/dL (8.4-10.2); Carbon Dioxide 37 mmol/L (22-30); Chloride 101 mmol/L (98-107); Estimated CRCL calculation 37 ml/min; Estimated Glomerular Filt Rate > 60; Glucose 95 mg/dL (65-110); Phosphorus 2.5 mg/dL (2.5-4.5); Potassium 3.8 mmol/L (3.4-5.0); Sodium 135 mmol/L (137-145)
[2024-08-30] MEDS: FLUTICASONE/SALMETEROL 115-21 MCG INHALER 1 PUFF 2 PUFF INHALATION ×2 (07:32→19:41)
[2024-08-30] MEDS: ASPIRIN 81 MG ENTERIC TABLET PO (09:06)
[2024-08-30] MEDS: amLODIPine BESYLATE 10 MG TABLET PO (09:06)
[2024-08-30] MEDS: FLUoxetine HCL 20 MG CAPSULE PO (09:06)
[2024-08-30] MEDS: ATORVASTATIN 20 MG TABLET PO (09:06)
[2024-08-30] MEDS: PANTOPRAZOLE 40 MG TABLET PO ×2 (09:06→21:04)
[2024-08-30] MEDS: GABAPENTIN 100 MG CAPSULE PO ×3 (09:06→17:19)
[2024-08-30] MEDS: METOPROLOL TARTRATE 25 MG TABLET PO ×2 (09:06→21:04)
[2024-08-30] MEDS: ENOXAPARIN 40 MG/0.4 ML SYRINGE SUB-Q (09:07)
--- NOTE | 2024-08-30 11:58 | P.PNIM_ITS ---
Progress Note: A&P Assessment and Plan (1) Altered mental status: Qualifiers: Altered mental status type: stupor Qualified Code(s): R40.1 - Stupor Code(s): R41.82 - Altered mental status, unspecified Status: Acute Assessment and Plan: Patient presents with altered mental status. She has not been taking her medications. CT of her brain was negative for any acute intracranial process. LFTs were within normal limit. UA clear. UDS was positive for cannabinoids. TSH normal. Salicylate <1. Acetaminophen <10. Ethyl alcohol <10. ABG 7.47/41/71 on RA. Neurology consulted. Brain MRI with mild nonspecific cerebral white matter disease and pontine disease which likely represents chronic small vessel ischemic disease. LP was performed. Negative for bacterial meningitis. HSV PCR negative. WNV IgM negative. Influenza, RSV and COVID PCR negative. EEG with diffuse slowing without any seizure activity. Mental status slowly improving. ST evaluated patient again today and diet adjusted to soft and bite sized. Added back some of her home medications and she tolerated this well. Continue to fol low. (2) Hypertensive urgency: Code(s): I16.0 - Hypertensive urgency Status: Acute Assessment and Plan: On arrival to the ED blood pressure was 199/108. She received IV fluids in the ER. She became acutely hypoxic and required 4 L via nasal cannula. Received a dose of IV Lasix with excellent urine output. Patient was admitted to the ICU. Patient was started on nicardipine drip and oral agents added. Able to taper off nicardipine. Cortisol level elevated. BP stable on oral agents. Weaned to room air. Repeat cortisol level as outpatient. (3) Polycythemia: Code(s): D75.1 - Secondary polycythemia Status: Acute Assessment and Plan: Hgb 18.6 on admission. She has had elevated Hgb in the past. Hgb remains elevated to as high as 20.3. JAK2 ordered. Erytropoetin level ordered. Renal function was normal. Renal artery stenosis moderate. Iron is normal but low TIBC. Ferritin 415. Hgb better today. Follow. Continue ASA. Heme evaluation as outpatient. (4) Elevated troponin: Code(s): R79.89 - Other specified abnormal findings of blood chemistry Status: Acute Assessment and Plan: Troponin was elevated at 0.138 but flat on repeat. Possible elevated Trop related to hypertensive urgency Echo showing mild concentric LVH with EF 50%, no valvular abnormality and moderate pericardial effusion. Cardiology was consulted. Flat trend unlikely to be ACS. Ischemic evaluation as an outpatient basis. (5) Pericardial effusion: Code(s): I31.39 - Other pericardial effusion (noninflammatory) Status: Acute Assessment and Plan: As above. No mention of tamponade. Discussed with Cardiology and they are aware. (6) Bipolar depression: Code(s): F31.9 - Bipolar disorder, unspecified Status: Acute Assessment and Plan: Resumed some of her home meds and she is tolerating this well. Mood remains stable Continue to monitor (7) Peripheral arterial disease: Code(s): I73.9 - Peripheral vascular disease, unspecified Status: Acute Assessment and Plan: Imaging showing moderate stenosis of celiac axis and superior stenosis of the inferior mesenteric artery. Severe stenosis right common iliac artery. Moderate stenosis of the renal arteries. Consider renal artery stenosis as the etiology of her polycythemia and HTN. Continue ASA and Lipitor Plan Enterocolitis - CT of the chest abdomen pelvis demonstrated cardiomegaly emphysematous changes, bladder cystitis and/or multilevel segmental enterocolitis. She reported no diarrhea. She has been afebrile. No abd pain. Follow clinically. GNW - PT/OT DVT prophylaxis - SCDs, Lovenox Code status - full Subjective Date/time seen: 08/30/24 11:58 Interval history: 59yo female with bipolar disorder and RA here for AMS. Patient able to walk to the shower with staff this morning. Still is very weak and is walking poorly. She feels off balance and also feels that her legs are going to give out from under her. She did sleep well. Exam Narrative: AF 97.0 143/74 80 18 94% ra Gen - NARD Chest - distant, clear BS. nml RR CV - RRR S1/S2 with +murmur Abd - Soft, NT/ND, Positive BS Ext - No pedal edema Neuro - Alert and appropriate. No focal weakness. Psych - Nml mood and affect Skin - Warm and dry Objective Data Vital Signs Vital Signs: Vital Signs - 24 hr 08/29/24 14:00 08/29/24 14:03 08/29/24 20:52 Temperature 97.8 F Pulse Rate 84 71 Respiratory Rate 16 20 Blood Pressure 130/75 Pulse Oximetry 100 94 Oxygen Delivery Room Air 08/29/24 20:52 08/29/24 22:00 08/30/24 05:54 Temperature 96.7 F L 97.0 F L Pulse Rate 79 78 80 Respiratory Rate 20 16 14 Blood Pressure 126/74 143/74 H Pulse Oximetry 97 95 Oxygen Delivery 08/30/24 07:33 08/30/24 07:33 08/30/24 07:42 Temperature Pulse Rate 85 84 Respiratory Rate 18 18 Blood Pressure Pulse Oximetry 94 Oxygen Delivery Room Air 08/30/24 09:06 08/30/24 08:30 Temperature Pulse Rate 80 Respiratory Rate Blood Pressure Pulse Oximetry Oxygen Delivery Room Air Intake/Output Intake/Output: Intake & Output 08/27/24 08/28/24 08/29/24 08/30/24 23:59 23:59 23:59 23:59 Intake Total 240 1720 1050 118 Output Total 100 600 350 Balance 140 1120 700 118 Meds/Results Medications: Active Medications Generic Name Dose Route Start Last Admin Trade Name Freq PRN Reason Stop Dose Admin Albuterol/Ipratropium 3 ml 08/25/24 14:00 08/30/24 07:32 Ipratropium 0.5 Mg/Albuterol Sulfate 2.5 Mg Ampul.Neb 3 Ml INHALATION 3 ml Q6HRT SOLOMON Administration Amlodipine Besylate 10 mg 08/26/24 09:05 08/30/24 09:06 Amlodipine Besylate 10 Mg Tablet PO 10 mg DAILY SOLOMON Administration Aspirin 81 mg 08/27/24 09:00 08/30/24 09:06 Aspirin 81 Mg Enteric Tablet PO 81 mg QAM SOLOMON Administration Atorvastatin Calcium 20 mg 08/29/24 09:00 08/30/24 09:06 Atorvastatin 20 Mg Tablet PO 20 mg DAILY SOLOMON Administration Enoxaparin Sodium 40 mg 08/30/24 09:00 08/30/24 09:07 Enoxaparin 40 Mg/0.4 Ml Syringe SUB-Q 40 mg DAILY SOLOMON Administration Fluoxetine HCl 20 mg 08/29/24 09:00 08/30/24 09:06 Fluoxetine Hcl 20 Mg Capsule PO 20 mg DAILY SOLOMON Administration Gabapentin 100 mg 08/28/24 19:30 08/30/24 09:06 Gabapentin 100 Mg Capsule PO 100 mg TID SOLOMON Administration Hydralazine HCl 10 mg 08/25/24 10:02 08/27/24 06:52 Hydralazine Hcl 20 Mg/Ml Vial IV PUSH 10 mg Q4H PRN Administration Blood Pressure - High Labetalol HCl 20 mg 08/26/24 09:06 08/27/24 04:59 Labetalol Hcl Inj 100 Mg/20 Ml Vial IV PUSH 20 mg Q4H PRN Administration Hypertension SBP > 160 Metoprolol Tartrate 25 mg 08/26/24 21:00 08/30/24 09:06 Metoprolol Tartrate 25 Mg Tablet PO 25 mg Q12HR SOLOMON Administration Pantoprazole Sodium 40 mg 08/25/24 09:00 08/30/24 09:06 Pantoprazole 40 Mg Tablet PO 40 mg Q12HR SOLOMON Administration Fluticasone/Salmeterol 2 puff 08/25/24 08:00 08/30/24 07:32 Fluticasone/Salmeterol 115-21 Mcg Inhaler 1 Puff INHALATION 2 puff Q12HRT SOLOMON Administration Trazodone HCl 50 mg 08/29/24 21:00 08/29/24 20:09 Trazodone Hcl 50 Mg Tablet PO 50 mg HS SOLOMON Administration Radiology Results: ITS Impressions Chest X-Ray 08/25/24 06:21 IMPRESSION: 1. Mild pulmonary edema. Head CT 08/25/24 07:26 IMPRESSION: 1. Mild nonspecific cerebral white matter disease, which likely represents chronic small vessel ischemic disease. Chest/Abdomen/Pelvis CTA 08/25/24 08:42 IMPRESSION: 1. Mild pulmonary edema. 2. Small pleural effusions. 3. Mild emphysema. 4. Small pericardial effusion. 5. Enterocolitis. 6. Arterial occlusive disease. Brain MRI 08/25/24 12:28 IMPRESSION: 1. Mild nonspecific cerebral white matter disease and pontine disease, which likely represents chronic small vessel ischemic disease. Lumbar Puncture Fluoroscopy 08/26/24 11:22 IMPRESSION: 1. Successful fluoro-guided lumbar puncture. Labs Labs: Laboratory Results - last 24 hr 08/25/24 08/26/24 08/30/24 09:56 17:36 05:41 WBC 9.8 RBC 5.83 H Hgb 17.3 H Hct 52.0 H MCV 89.2 MCH 29.7 MCHC 33.3 RDW 16.9 H Plt Count 176 MPV 12.6 H Sodium 135 L Potassium 3.8 Chloride 101 Carbon Dioxide 37 H Anion Gap -3 L BUN 26 H D Creatinine 0.90 Estim Creat Clear Calc 37 Estimated GFR > 60 Glucose 95 Calcium 8.6 Phosphorus 2.5 Magnesium 2.0 Total Bilirubin 1.2 AST 51 H ALT 26 Alkaline Phosphatase 82 Total Protein 6.0 L Albumin 3.5 Vitamin B1 <6 L West Nile Virus IgM Ab <0.90
[2024-08-30 20:09] LABS: Source CEREBROSPINAL FLUID
[2024-08-30] MEDS: traZODone HCL 50 MG TABLET PO (21:04)
[2024-08-31] VITALS (15 sets, daily range): BP systolic 108–139; BP diastolic 61–75; PULSE 71–85; RESP 14–20; TEMP 36.7–37.1; O2SAT 96–99
[2024-08-31] MEDS: IPRATROPIUM 0.5 MG/ALBUTEROL SULFATE 2.5 MG AMPUL.NEB 3 ML INHALATION ×4 (02:45→20:27)
[2024-08-31 07:00] LABS: Hematocrit 50.8 % (37.0-47.0); Hemoglobin 17.1 g/dL (12.0-15.0); Mean Corpuscular HGB Conc 33.7 g/dl (32-36); Mean Corpuscular Hemoglobin 30.5 pg (26-34); Mean Corpuscular Volume 90.6 fl (80-100); Platelet Count Result 186 k/mm3 (150-375); Red Blood Count 5.61 M/mm3 (4.2-5.4); Red Cell Distribution Width 16.5 % (11.5-14.5); White Blood Count 8.6 K/mm3 (4.5-10.0)
[2024-08-31 07:17] LABS: Alanine Aminotransferase 38 U/L (6-35); Albumin Level 3.9 g/dL (3.5-5.1); Alkaline Phosphatase 83 U/L (38-126); Anion Gap 0 mmol/L (4-12); Aspartate Amino Transferase 64 U/L (14-36); Bilirubin,Total 1.1 mg/dL (0.2-1.3); Blood Urea Nitrogen 24 mg/dL (7-17); Calcium 9.1 mg/dL (8.4-10.2); Carbon Dioxide 34 mmol/L (22-30); Chloride 104 mmol/L (98-107); Estimated CRCL calculation 37 ml/min; Estimated Glomerular Filt Rate > 60; Glucose 97 mg/dL (65-110); Phosphorus 3.2 mg/dL (2.5-4.5); Potassium 3.8 mmol/L (3.4-5.0); Sodium 138 mmol/L (137-145)
[2024-08-31] MEDS: FLUTICASONE/SALMETEROL 115-21 MCG INHALER 1 PUFF 2 PUFF INHALATION ×2 (08:03→20:28)
[2024-08-31] MEDS: METOPROLOL TARTRATE 25 MG TABLET PO ×2 (08:20→21:10)
[2024-08-31] MEDS: ASPIRIN 81 MG ENTERIC TABLET PO (08:20)
[2024-08-31] MEDS: ENOXAPARIN 40 MG/0.4 ML SYRINGE SUB-Q (08:21)
[2024-08-31] MEDS: amLODIPine BESYLATE 10 MG TABLET PO (08:21)
[2024-08-31] MEDS: PANTOPRAZOLE 40 MG TABLET PO ×2 (08:21→21:10)
[2024-08-31] MEDS: ATORVASTATIN 20 MG TABLET PO (08:21)
[2024-08-31] MEDS: GABAPENTIN 100 MG CAPSULE PO ×3 (08:21→16:51)
[2024-08-31] MEDS: FLUoxetine HCL 20 MG CAPSULE PO (08:22)
--- NOTE | 2024-08-31 14:04 | PM.IMPN ---
Progress Note: A&P Assessment and Plan (1) Altered mental status: Qualifiers: Altered mental status type: stupor Qualified Code(s): R40.1 - Stupor Code(s): R41.82 - Altered mental status, unspecified Status: Acute Assessment and Plan: Patient presents with altered mental status. She has not been taking her home medications. CT of her brain was negative for any acute intracranial process. LFTs were within normal limit. UA clear. UDS was positive for cannabinoids. She mentions that she does spoke a lot of marijuana. TSH normal. Salicylate <1. Acetaminophen <10. Ethyl alcohol <10. ABG 7.47/41/71 on RA. Neurology consulted. Brain MRI with mild nonspecific cerebral white matter disease and pontine disease which likely represents chronic small vessel ischemic disease. LP was performed. Negative for bacterial meningitis. HSV PCR negative. WNV IgM negative. Influenza, RSV and COVID PCR negative. EEG with diffuse slowing without any seizure activity. Mental status much better. ST evaluated patient and diet adjusted to soft and bite sized. Added back some of her home medications and she tolerated this well. Continue to follow. (2) Hypertensive urgency: Code(s): I16.0 - Hypertensive urgency Status: Acute Assessment and Plan: On arrival to the ED blood pressure was 199/108. She received IV fluids in the ER. She became acutely hypoxic and required 4 L via nasal cannula. Received a dose of IV Lasix with excellent urine output. Patient was admitted to the ICU. Patient was started on nicardipine drip and oral agents added. Able to taper off nicardipine. Cortisol level elevated. BP stable on oral agents. Weaned to room air. Repeat cortisol level as outpatient. (3) Polycythemia: Code(s): D75.1 - Secondary polycythemia Status: Acute Assessment and Plan: Hgb 18.6 on admission. She has had elevated Hgb in the past. Hgb remains elevated to as high as 20.3. JAK2 ordered. Erytropoetin level ordered. Renal function was normal. Renal artery stenosis moderate. Iron is normal but low TIBC. Ferritin 415. Hgb better today. Follow. Continue ASA. Heme evaluation as outpatient. (4) Elevated troponin: Code(s): R79.89 - Other specified abnormal findings of blood chemistry Status: Acute Assessment and Plan: Troponin was elevated at 0.138 but flat on repeat. Possible elevated Trop related to hypertensive urgency Echo showing mild concentric LVH with EF 50%, no valvular abnormality and moderate pericardial effusion. Cardiology was consulted. Flat trend unlikely to be ACS. Ischemic evaluation as an outpatient basis. (5) Pericardial effusion: Code(s): I31.39 - Other pericardial effusion (noninflammatory) Status: Acute Assessment and Plan: As above. No mention of tamponade. Discussed with Cardiology and they are aware. (6) Bipolar depression: Code(s): F31.9 - Bipolar disorder, unspecified Status: Acute Assessment and Plan: Resumed some of her home meds and she is tolerating this well. Mood remains stable Continue to monitor (7) Peripheral arterial disease: Code(s): I73.9 - Peripheral vascular disease, unspecified Status: Acute Assessment and Plan: Imaging showing moderate stenosis of celiac axis and superior stenosis of the inferior mesenteric artery. Severe stenosis right common iliac artery. Moderate stenosis of the renal arteries. Consider renal artery stenosis as the etiology of her polycythemia and HTN. Continue ASA and Lipitor Plan Enterocolitis - CT of the chest abdomen pelvis demonstrated cardiomegaly emphysematous changes, bladder cystitis and/or multilevel segmental enterocolitis. She reported no diarrhea. She has been afebrile. No abd pain. Follow clinically. GNW - PT/OT. Refusing SNF care. Still moderate assistance. DVT prophylaxis - SCDs, Lovenox Code status - full Subjective Date/time seen: 08/31/24 14:04 Interval history: 59yo female with bipolar disorder and RA here for AMS. Feels well today. Up to the chair. Uses a walker here but not able to get around well and still requires moderate assistance. Exam Narrative: AF 98.8 111/71 85 18 96% ra Gen - NARD Chest - distant, clear BS. nml RR CV - RRR S1/S2 Abd - Soft, NT/ND, Positive BS Ext - No pedal edema Neuro - Alert and oriented x4. No focal weakness. Psych - Nml mood and affect Skin - Warm and dry Objective Data Vital Signs Vital Signs: Vital Signs - 24 hr 08/30/24 19:42 08/30/24 19:42 08/30/24 21:04 Temperature Pulse Rate 82 80 Respiratory Rate 18 Blood Pressure Pulse Oximetry 95 Oxygen Delivery Room Air Fraction of Inspired Oxygen 08/30/24 21:44 08/30/24 20:00 08/31/24 02:46 Temperature 98.8 F Pulse Rate 81 74 Respiratory Rate 12 18 Blood Pressure 106/61 Pulse Oximetry 96 Oxygen Delivery Room Air Fraction of Inspired Oxygen 08/31/24 02:55 08/30/24 19:52 08/31/24 06:00 Temperature 98.8 F Pulse Rate 77 86 85 Respiratory Rate 18 18 14 Blood Pressure 111/71 Pulse Oximetry 96 Oxygen Delivery Fraction of Inspired Oxygen 08/31/24 08:04 08/31/24 08:04 08/31/24 08:17 Temperature Pulse Rate 71 77 Respiratory Rate 18 18 Blood Pressure Pulse Oximetry 96 Oxygen Delivery Room Air Fraction of Inspired Oxygen 08/31/24 08:20 08/31/24 08:00 Temperature Pulse Rate 85 85 Respiratory Rate 18 Blood Pressure Pulse Oximetry 96 Oxygen Delivery Room Air Fraction of Inspired Oxygen 21 Intake/Output Intake/Output: Intake & Output 08/28/24 08/29/24 08/30/24 08/31/24 23:59 23:59 23:59 23:59 Intake Total 1720 1050 118 940 Output Total 600 350 Balance 1120 700 118 940 Meds/Results Medications: Active Medications Generic Name Dose Route Start Last Admin Trade Name Freq PRN Reason Stop Dose Admin Albuterol/Ipratropium 3 ml 08/25/24 14:00 08/31/24 08:02 Ipratropium 0.5 Mg/Albuterol Sulfate 2.5 Mg Ampul.Neb 3 Ml INHALATION 3 ml Q6HRT SOLOMON Administration Amlodipine Besylate 10 mg 08/26/24 09:05 08/31/24 08:21 Amlodipine Besylate 10 Mg Tablet PO 10 mg DAILY SOLOMON Administration Aspirin 81 mg 08/27/24 09:00 08/31/24 08:20 Aspirin 81 Mg Enteric Tablet PO 81 mg QAM SOLOMON Administration Atorvastatin Calcium 20 mg 08/29/24 09:00 08/31/24 08:21 Atorvastatin 20 Mg Tablet PO 20 mg DAILY SOLOMON Administration Enoxaparin Sodium 40 mg 08/30/24 09:00 08/31/24 08:21 Enoxaparin 40 Mg/0.4 Ml Syringe SUB-Q 40 mg DAILY SOLOMON Administration Fluoxetine HCl 20 mg 08/29/24 09:00 08/31/24 08:22 Fluoxetine Hcl 20 Mg Capsule PO 20 mg DAILY SOLOMON Administration Gabapentin 100 mg 08/28/24 19:30 08/31/24 12:46 Gabapentin 100 Mg Capsule PO 100 mg TID SOLOMON Administration Hydralazine HCl 10 mg 08/25/24 10:02 08/27/24 06:52 Hydralazine Hcl 20 Mg/Ml Vial IV PUSH 10 mg Q4H PRN Administration Blood Pressure - High Labetalol HCl 20 mg 08/26/24 09:06 08/27/24 04:59 Labetalol Hcl Inj 100 Mg/20 Ml Vial IV PUSH 20 mg Q4H PRN Administration Hypertension SBP > 160 Metoprolol Tartrate 25 mg 08/26/24 21:00 08/31/24 08:20 Metoprolol Tartrate 25 Mg Tablet PO 25 mg Q12HR SOLOMON Administration Pantoprazole Sodium 40 mg 08/25/24 09:00 08/31/24 08:21 Pantoprazole 40 Mg Tablet PO 40 mg Q12HR SOLOMON Administration Fluticasone/Salmeterol 2 puff 08/25/24 08:00 08/31/24 08:03 Fluticasone/Salmeterol 115-21 Mcg Inhaler 1 Puff INHALATION 2 puff Q12HRT SOLOMON Administration Trazodone HCl 50 mg 08/29/24 21:00 08/30/24 21:04 Trazodone Hcl 50 Mg Tablet PO 50 mg HS SOLOMON Administration Radiology Results: ITS Impressions Chest X-Ray 08/25/24 06:21 IMPRESSION: 1. Mild pulmonary edema. Head CT 08/25/24 07:26 IMPRESSION: 1. Mild nonspecific cerebral white matter disease, which likely represents chronic small vessel ischemic disease. Chest/Abdomen/Pelvis CTA 08/25/24 08:42 IMPRESSION: 1. Mild pulmonary edema. 2. Small pleural effusions. 3. Mild emphysema. 4. Small pericardial effusion. 5. Enterocolitis. 6. Arterial occlusive disease. Brain MRI 08/25/24 12:28 IMPRESSION: 1. Mild nonspecific cerebral white matter disease and pontine disease, which likely represents chronic small vessel ischemic disease. Lumbar Puncture Fluoroscopy 08/26/24 11:22 IMPRESSION: 1. Successful fluoro-guided lumbar puncture. Labs Labs: Laboratory Results - last 24 hr 08/26/24 08/31/24 10:38 06:35 WBC 8.6 RBC 5.61 H Hgb 17.1 H Hct 50.8 H MCV 90.6 MCH 30.5 MCHC 33.7 RDW 16.5 H Plt Count 186 MPV 12.0 H Sodium 138 Potassium 3.8 Chloride 104 Carbon Dioxide 34 H Anion Gap 0 L BUN 24 H Creatinine 0.90 Estim Creat Clear Calc 37 Estimated GFR > 60 Glucose 97 Calcium 9.1 Phosphorus 3.2 Magnesium 2.0 Total Bilirubin 1.1 AST 64 H ALT 38 H Alkaline Phosphatase 83 Total Protein 7.0 Albumin 3.9 CSF Source Cerebrospinal fluid CSF West Nile RNA Not detected
[2024-08-31] MEDS: traZODone HCL 50 MG TABLET PO (21:10)
[2024-08-31 23:01] LABS: Add Urine Microscopic? YES; Appearance Urine Turbid (Clear); Bacteria Urine 4+ /hpf; Bilirubin Urine Negative (Negative); Blood Urine 3+ (Negative); Color Urine Yellow (Yellow); Glucose Urine UA Negative (Negative); Ketones Urine Negative (Negative); Leukocyte Esterase Ur 3+ LEU/UL (Negative); Mucus Urine Present /lpf; Need Manual Microscopic Reviewed; Nitrate Urine Negative (Negative); Protein Urine 2+ mg/dL (Negative); RBC Urine 51-100 /hpf (0-2); Specific Grav Ur 1.019 (1.001-1.035); Squamous Epithelial Cell Urine Occasional /hpf (Few); WBC Urine >100 /hpf (0-3); pH Urine 7.5 (5.0-9.0)
--- NOTE | 2024-08-31 23:24 | PM.EVENT ---
Event Note Event Note Event Note: UA was obtained this evening, reviewed. - UA: Turbid, 2+ protein, 3+ blood, 3+ leuks, 51-100 RBC, greater than 100 WBC, occasional epithelial cells, 4+ bacteria. - UC pending - previous micro reviewed, none available for review - started on Ceftriaxone on 08/31
[2024-09-01] VITALS (13 sets, daily range): BP systolic 121–135; BP diastolic 67–78; PULSE 72–83; RESP 14–20; TEMP 36.6–37.1; O2SAT 94–98
[2024-09-01 00:09] LABS: Block/Specimen ID NG; Clinical Indication NG; JAK2 V617F Mutation NOT DETECTED (NOT DETECTED); Specimen Source BLOOD
[2024-09-01] MEDS: IPRATROPIUM 0.5 MG/ALBUTEROL SULFATE 2.5 MG AMPUL.NEB 3 ML INHALATION ×3 (02:19→14:10)
[2024-09-01] MEDS: FLUTICASONE/SALMETEROL 115-21 MCG INHALER 1 PUFF 2 PUFF INHALATION (08:02)
[2024-09-01] MEDS: PANTOPRAZOLE 40 MG TABLET PO ×2 (08:19→21:14)
[2024-09-01] MEDS: METOPROLOL TARTRATE 25 MG TABLET PO ×2 (08:19→21:14)
[2024-09-01] MEDS: FLUoxetine HCL 20 MG CAPSULE PO (08:20)
[2024-09-01] MEDS: ATORVASTATIN 20 MG TABLET PO (08:20)
[2024-09-01] MEDS: GABAPENTIN 100 MG CAPSULE PO (08:20)
[2024-09-01] MEDS: ASPIRIN 81 MG ENTERIC TABLET PO (08:20)
[2024-09-01] MEDS: amLODIPine BESYLATE 10 MG TABLET PO (08:20)
--- NOTE | 2024-09-01 11:02 | PM.IMPN ---
Progress Note: A&P Assessment and Plan (1) Altered mental status: Qualifiers: Altered mental status type: stupor Qualified Code(s): R40.1 - Stupor Code(s): R41.82 - Altered mental status, unspecified Status: Acute Assessment and Plan: Patient presents with altered mental status. She has not been taking her home medications. CT of her brain was negative for any acute intracranial process. LFTs were within normal limit. UA clear. UDS was positive for cannabinoids. She mentions that she does spoke a lot of marijuana. TSH normal. Salicylate <1. Acetaminophen <10. Ethyl alcohol <10. ABG 7.47/41/71 on RA. Neurology consulted. Brain MRI with mild nonspecific cerebral white matter disease and pontine disease which likely represents chronic small vessel ischemic disease. LP was performed. Negative for bacterial meningitis. HSV PCR negative. WNV IgM negative. Influenza, RSV and COVID PCR negative. EEG with diffuse slowing without any seizure activity. Mental status much better. ST evaluated patient and diet adjusted to soft and bite sized. Added back some of her home medications and she tolerated this well. Continue to follow. (2) Hypertensive urgency: Code(s): I16.0 - Hypertensive urgency Status: Acute Assessment and Plan: On arrival to the ED blood pressure was 199/108. She received IV fluids in the ER. She became acutely hypoxic and required 4 L via nasal cannula. Received a dose of IV Lasix with excellent urine output. Patient was admitted to the ICU. Patient was started on nicardipine drip and oral agents added. Able to taper off nicardipine. Cortisol level elevated. BP stable on oral agents. Weaned to room air. Repeat cortisol level as outpatient. (3) Polycythemia: Code(s): D75.1 - Secondary polycythemia Status: Acute Assessment and Plan: Hgb 18.6 on admission. She has had elevated Hgb in the past. Hgb remains elevated to as high as 20.3. ABG showing no CO2 retention. JAK2 negative. Erytropoetin level ordered. Renal function was normal. Renal artery stenosis moderate. Iron is normal but low TIBC. Ferritin 415. Hgb sable at 17. Follow. Continue ASA. Heme evaluation as outpatient. Check apnea link to see if hypoxic at night (4) Elevated troponin: Code(s): R79.89 - Other specified abnormal findings of blood chemistry Status: Acute Assessment and Plan: Troponin was elevated at 0.138 but flat on repeat. Possible elevated Trop related to hypertensive urgency Echo showing mild concentric LVH with EF 50%, no valvular abnormality and moderate pericardial effusion. Cardiology was consulted. Flat trend unlikely to be ACS. Ischemic evaluation as an outpatient basis. (5) Pericardial effusion: Code(s): I31.39 - Other pericardial effusion (noninflammatory) Status: Acute Assessment and Plan: As above. No mention of tamponade. Discussed with Cardiology and they are aware. (6) Bipolar depression: Code(s): F31.9 - Bipolar disorder, unspecified Status: Acute Assessment and Plan: Resumed some of her home meds and she is tolerating this well. Mood remains stable Continue to monitor (7) Peripheral arterial disease: Code(s): I73.9 - Peripheral vascular disease, unspecified Status: Acute Assessment and Plan: Imaging showing moderate stenosis of celiac axis and superior stenosis of the inferior mesenteric artery. Severe stenosis right common iliac artery. Moderate stenosis of the renal arteries. Consider renal artery stenosis as the etiology of her polycythemia and HTN. Continue ASA and Lipitor (8) UTI (urinary tract infection): Code(s): N39.0 - Urinary tract infection, site not specified Status: Acute Assessment and Plan: UA collected for unclear reasons. She is asymptomatic but had a 'strong odor' to her urine. UA is consistent with UTI. UCx collected. Rocephin started. UCx pending. Follow up on UCx results. Plan Enterocolitis - CT of the chest abdomen pelvis demonstrated cardiomegaly emphysematous changes, bladder cystitis and/or multilevel segmental enterocolitis. She reported no diarrhea. She has been afebrile. No abd pain. Follow clinically. GNW - Refusing SNF care. Contact guard for chair transfer. Walked 40ft in room min assist. Continue PT/OT DVT prophylaxis - SCDs, Lovenox Code status - full Subjective Date/time seen: 09/01/24 11:02 Interval history: 59yo female with bipolar disorder and RA here for AMS. Feeling well today. Walked with walker in key. No dysuria or heamturia but had a 'strong odor' to her urine prompting a UA. No back pain or abd pain. +BM. Exam Narrative: AF 98.7 133/67 72 20 96% ra Gen - NARD Chest - distant BS CV - RRR S1/S2 Abd - Soft, NT/ND, Positive BS Ext - trace pedal edema. Negative Homans Psych - Nml mood and affect Skin - Warm and dry Objective Data Vital Signs Vital Signs: Vital Signs - 24 hr 08/31/24 14:00 08/31/24 14:52 08/31/24 14:59 Temperature 98.1 F Pulse Rate 84 80 85 Respiratory Rate 16 20 20 Blood Pressure 108/61 Pulse Oximetry 96 Oxygen Delivery Fraction of Inspired Oxygen 08/31/24 20:28 08/31/24 20:31 08/31/24 20:36 Temperature Pulse Rate 83 80 Respiratory Rate 20 20 Blood Pressure Pulse Oximetry 97 Oxygen Delivery Room Air Fraction of Inspired Oxygen 08/31/24 21:07 08/31/24 21:10 08/31/24 20:00 Temperature 98.0 F Pulse Rate 83 80 Respiratory Rate 14 Blood Pressure 139/75 Pulse Oximetry 99 Oxygen Delivery Room Air Fraction of Inspired Oxygen 09/01/24 02:19 09/01/24 02:26 09/01/24 06:00 Temperature 98.7 F Pulse Rate 75 76 72 Respiratory Rate 20 20 14 Blood Pressure 133/67 Pulse Oximetry 96 Oxygen Delivery Fraction of Inspired Oxygen 09/01/24 07:51 09/01/24 07:51 09/01/24 08:02 Temperature Pulse Rate 79 80 Respiratory Rate 20 20 Blood Pressure Pulse Oximetry 96 Oxygen Delivery Room Air Fraction of Inspired Oxygen 21 09/01/24 08:19 Temperature Pulse Rate 72 Respiratory Rate Blood Pressure Pulse Oximetry Oxygen Delivery Fraction of Inspired Oxygen Intake/Output Intake/Output: Intake & Output 08/29/24 08/30/24 08/31/24 09/01/24 23:59 23:59 23:59 23:59 Intake Total 8280 134 8520 790 Output Total 350 200 200 Balance 370 232 2896 590 Meds/Results Medications: Active Medications Generic Name Dose Route Start Last Admin Trade Name Freq PRN Reason Stop Dose Admin Albuterol/Ipratropium 3 ml 08/25/24 14:00 09/01/24 07:51 Ipratropium 0.5 Mg/Albuterol Sulfate 2.5 Mg Ampul.Neb 3 Ml INHALATION 3 ml Q6HRT SOLOMON Administration Amlodipine Besylate 10 mg 08/26/24 09:05 09/01/24 08:20 Amlodipine Besylate 10 Mg Tablet PO 10 mg DAILY SOLOMON Administration Aspirin 81 mg 08/27/24 09:00 09/01/24 08:20 Aspirin 81 Mg Enteric Tablet PO 81 mg QAM SOLOMON Administration Atorvastatin Calcium 20 mg 08/29/24 09:00 09/01/24 08:20 Atorvastatin 20 Mg Tablet PO 20 mg DAILY SOLOMON Administration Enoxaparin Sodium 40 mg 08/30/24 09:00 09/01/24 10:12 Enoxaparin 40 Mg/0.4 Ml Syringe SUB-Q Not Given DAILY SOLOMON Fluoxetine HCl 20 mg 08/29/24 09:00 09/01/24 08:20 Fluoxetine Hcl 20 Mg Capsule PO 20 mg DAILY SOLOMON Administration Gabapentin 100 mg 08/28/24 19:30 09/01/24 08:20 Gabapentin 100 Mg Capsule PO 100 mg TID SOLOMON Administration Hydralazine HCl 10 mg 08/25/24 10:02 08/27/24 06:52 Hydralazine Hcl 20 Mg/Ml Vial IV PUSH 10 mg Q4H PRN Administration Blood Pressure - High Ceftriaxone Sodium 1 gm in 50 mls @ 100 mls/hr 09/01/24 00:00 08/31/24 23:57 Rocephin 1 Gm/Ns 50 Ml IVPB 100 mls/hr Q24H SOLOMON Administration Labetalol HCl 20 mg 08/26/24 09:06 08/27/24 04:59 Labetalol Hcl Inj 100 Mg/20 Ml Vial IV PUSH 20 mg Q4H PRN Administration Hypertension SBP > 160 Metoprolol Tartrate 25 mg 08/26/24 21:00 09/01/24 08:19 Metoprolol Tartrate 25 Mg Tablet PO 25 mg Q12HR SOLOMON Administration Pantoprazole Sodium 40 mg 08/25/24 09:00 09/01/24 08:19 Pantoprazole 40 Mg Tablet PO 40 mg Q12HR SOLOMON Administration Fluticasone/Salmeterol 2 puff 08/25/24 08:00 09/01/24 08:02 Fluticasone/Salmeterol 115-21 Mcg Inhaler 1 Puff INHALATION 2 puff Q12HRT SOLOMON Administration Trazodone HCl 50 mg 08/29/24 21:00 08/31/24 21:10 Trazodone Hcl 50 Mg Tablet PO 50 mg HS SOLOMON Administration Radiology Results: ITS Impressions Chest X-Ray 08/25/24 06:21 IMPRESSION: 1. Mild pulmonary edema. Head CT 08/25/24 07:26 IMPRESSION: 1. Mild nonspecific cerebral white matter disease, which likely represents chronic small vessel ischemic disease. Chest/Abdomen/Pelvis CTA 08/25/24 08:42 IMPRESSION: 1. Mild pulmonary edema. 2. Small pleural effusions. 3. Mild emphysema. 4. Small pericardial effusion. 5. Enterocolitis. 6. Arterial occlusive disease. Brain MRI 08/25/24 12:28 IMPRESSION: 1. Mild nonspecific cerebral white matter disease and pontine disease, which likely represents chronic small vessel ischemic disease. Lumbar Puncture Fluoroscopy 08/26/24 11:22 IMPRESSION: 1. Successful fluoro-guided lumbar puncture. Labs Labs: Laboratory Results - last 24 hr 08/27/24 08/31/24 17:00 22:30 Urine Color Yellow Urine Appearance Turbid H Urine pH 7.5 Ur Specific [place] 1.019 Urine Protein 2+ H Urine Glucose (UA) Negative Urine Ketones Negative Ur Blood (Man) 3+ H Urine Nitrate Negative Urine Bilirubin Negative Urine Urobilinogen 1.0 Add Ur Microanalysis Reviewed Leukocyte Esterase Rfl 3+ H Urine RBC 51-100 H Urine WBC >100 H Ur Squamous Epith Cells Occasional Urine Bacteria 4+ Urine Casts 11-20 Urine Mucus Present JAK2 V617F Specimen Blood JAK2 V617F Mut Indic Ng JAK2 V617F Mutation Not detected JAK2 Interpret/Report See note JAK2 V617F Comment See note Ref Lab Specimen ID Ng
[2024-09-01] MEDS: traZODone HCL 50 MG TABLET PO (21:14)
[2024-09-02] VITALS (18 sets, daily range): BP systolic 122–126; BP diastolic 75–82; PULSE 77–94; RESP 18–20; TEMP 36.5–36.9; O2SAT 85–98
[2024-09-02] MEDS: IPRATROPIUM 0.5 MG/ALBUTEROL SULFATE 2.5 MG AMPUL.NEB 3 ML INHALATION ×4 (03:02→20:10)
--- NOTE | 2024-09-02 03:04 | PCRCNOTE ---
Some the parts weren't available to do the Apnea Link tonight so it was not done. Will be postponed to a later date.
[2024-09-02 06:36] LABS: Hematocrit 44.8 % (37.0-47.0); Hemoglobin 14.7 g/dL (12.0-15.0); Mean Corpuscular HGB Conc 32.8 g/dl (32-36); Mean Corpuscular Hemoglobin 29.9 pg (26-34); Mean Corpuscular Volume 91.1 fl (80-100); Mean Platelet Volume 12.3 fl (7.4-10.4); Platelet Count Result 205 k/mm3 (150-375); Red Blood Count 4.92 M/mm3 (4.2-5.4); Red Cell Distribution Width 16.3 % (11.5-14.5); White Blood Count 6.6 K/mm3 (4.5-10.0)
[2024-09-02 06:54] LABS: Albumin Level 3.2 g/dL (3.5-5.1); Anion Gap -1 mmol/L (4-12); Blood Urea Nitrogen 17 mg/dL (7-17); Calcium 8.8 mg/dL (8.4-10.2); Carbon Dioxide 33 mmol/L (22-30); Chloride 103 mmol/L (98-107); Estimated CRCL calculation 39 ml/min; Estimated Glomerular Filt Rate > 60; Glucose 90 mg/dL (65-110); Phosphorus 3.5 mg/dL (2.5-4.5); Potassium 3.9 mmol/L (3.4-5.0); Sodium 135 mmol/L (137-145)
[2024-09-02] MEDS: FLUTICASONE/SALMETEROL 115-21 MCG INHALER 1 PUFF 2 PUFF INHALATION ×2 (07:33→20:10)
[2024-09-02] MEDS: ATORVASTATIN 20 MG TABLET PO (08:35)
[2024-09-02] MEDS: ASPIRIN 81 MG ENTERIC TABLET PO (08:35)
[2024-09-02] MEDS: amLODIPine BESYLATE 10 MG TABLET PO (08:35)
[2024-09-02] MEDS: FLUoxetine HCL 20 MG CAPSULE PO (08:36)
[2024-09-02] MEDS: ENOXAPARIN 40 MG/0.4 ML SYRINGE SUB-Q (08:36)
[2024-09-02] MEDS: GABAPENTIN 100 MG CAPSULE PO ×3 (08:36→16:33)
[2024-09-02] MEDS: PANTOPRAZOLE 40 MG TABLET PO ×2 (08:36→21:10)
[2024-09-02] MEDS: METOPROLOL TARTRATE 25 MG TABLET PO ×2 (08:37→21:10)
--- NOTE | 2024-09-02 10:22 | PCSTNOTE ---
Interviewed patient for progress. Consuming Soft and Bite-Sized without much difficulty other than complaints of having trouble swallowing one type of meat and one rice ball, (how the sister described it). Otherwise tolerating soft and bite-sized. Therapist instructed patient to cut meat into smaller pieces, if she is concerned about the size/mastication. Also alternate solids with liquids.
--- NOTE | 2024-09-02 14:49 | PCOTNOTE ---
Attempted to see Patient for afternoon OT treatment session. Patient stated she is exhausted, can not do more today. Patient requested therapy come back tomorrow morning for therapy services, Patient verbalized she knows she needs it and just can not this afternoon.
--- NOTE | 2024-09-02 16:49 | PM.IMPN ---
Progress Note: A&P Assessment and Plan (1) Altered mental status: Qualifiers: Altered mental status type: stupor Qualified Code(s): R40.1 - Stupor Code(s): R41.82 - Altered mental status, unspecified Status: Acute Assessment and Plan: Patient presents with altered mental status. She has not been taking her home medications. CT of her brain was negative for any acute intracranial process. LFTs were within normal limit. UA clear. UDS was positive for cannabinoids. She mentions that she does spoke a lot of marijuana. TSH normal. Salicylate <1. Acetaminophen <10. Ethyl alcohol <10. ABG 7.47/41/71 on RA. Neurology consulted. Brain MRI with mild nonspecific cerebral white matter disease and pontine disease which likely represents chronic small vessel ischemic disease. LP was performed. Negative for bacterial meningitis. HSV PCR negative. WNV IgM negative. Influenza, RSV and COVID PCR negative. EEG with diffuse slowing without any seizure activity. Mental status much better. ST evaluated patient and diet adjusted to soft and bite sized. Added back some of her home medications and she tolerated this well. Etiology unclear. She is still unsteady on her feet but improving per therapy staff. Still off-balance and leans requiring correction. Continue to follow. (2) Hypertensive urgency: Code(s): I16.0 - Hypertensive urgency Status: Acute Assessment and Plan: On arrival to the ED blood pressure was 199/108. She received IV fluids in the ER. She became acutely hypoxic and required 4 L via nasal cannula. Received a dose of IV Lasix with excellent urine output. Patient was admitted to the ICU. Patient was started on nicardipine drip and oral agents added. Able to taper off nicardipine. Cortisol level elevated. BP stable on oral agents. Weaned to room air. Repeat cortisol level as outpatient. Still with mild pedal edema. Doppler negative for DVT. Lasix once. (3) Polycythemia: Code(s): D75.1 - Secondary polycythemia Status: Acute Assessment and Plan: Hgb 18.6 on admission. She has had elevated Hgb in the past. Hgb remains elevated to as high as 20.3. ABG showing no CO2 retention. JAK2 negative. Erytropoetin level normal. Renal function was normal. Renal artery stenosis moderate. Iron is normal but low TIBC. Ferritin 415. Hgb better at 14. Follow. Continue ASA. Heme evaluation as outpatient. Check apnea link to see if hypoxic at night (4) Elevated troponin: Code(s): R79.89 - Other specified abnormal findings of blood chemistry Status: Acute Assessment and Plan: Troponin was elevated at 0.138 but flat on repeat. Possible elevated Trop related to hypertensive urgency Echo showing mild concentric LVH with EF 50%, no valvular abnormality and moderate pericardial effusion. Cardiology was consulted. Flat trend unlikely to be ACS. Ischemic evaluation as an outpatient basis. (5) Pericardial effusion: Code(s): I31.39 - Other pericardial effusion (noninflammatory) Status: Acute Assessment and Plan: As above. No mention of tamponade. Discussed with Cardiology and they are aware. (6) Bipolar depression: Code(s): F31.9 - Bipolar disorder, unspecified Status: Acute Assessment and Plan: Resumed some of her home meds and she is tolerating this well. Mood remains stable Continue to monitor (7) Peripheral arterial disease: Code(s): I73.9 - Peripheral vascular disease, unspecified Status: Acute Assessment and Plan: Imaging showing moderate stenosis of celiac axis and superior stenosis of the inferior mesenteric artery. Severe stenosis right common iliac artery. Moderate stenosis of the renal arteries. Consider renal artery stenosis as the etiology of her polycythemia and HTN. Continue ASA and Lipitor (8) UTI (urinary tract infection): Code(s): N39.0 - Urinary tract infection, site not specified Status: Acute Assessment and Plan: UA collected for unclear reasons. She is asymptomatic but had a 'strong odor' to her urine. UA is consistent with UTI. UCx collected. Rocephin started. UCx pending. Follow up on UCx results. Plan Enterocolitis - CT of the chest abdomen pelvis demonstrated cardiomegaly emphysematous changes, bladder cystitis and/or multilevel segmental enterocolitis. She reported no diarrhea. She has been afebrile. No abd pain. Follow clinically. GNW - Refusing SNF care. Contact guard and minimal assistance for chair transfer. Walked 50ft with minimal assistance with LOBx1. Continue PT/OT DVT prophylaxis - SCDs, Lovenox Code status - full Subjective Date/time seen: 09/02/24 16:49 Interval history: 59yo female with bipolar disorder and RA here for AMS. Eating well. She feels that she is walking better. no dyuria or hematuria. The strong odor to the urine is better. No CP or SOB. Exam Narrative: AF 97.7 124/75 81 20 92% ra Gen - NARD Chest - distant BS CV - RRR S1/S2 Abd - Soft, NT/ND, Positive BS Ext - trace pedal edema. Negative Homans Psych - Nml mood and affect Skin - Warm and dry Objective Data Vital Signs Vital Signs: Vital Signs - 24 hr 09/01/24 21:14 09/01/24 21:00 09/01/24 21:28 Temperature 97.8 F Pulse Rate 83 83 79 Respiratory Rate 16 20 Blood Pressure 121/67 Pulse Oximetry 94 Oxygen Delivery 09/01/24 20:00 09/02/24 03:02 09/02/24 05:08 Temperature 98.4 F Pulse Rate 77 78 Respiratory Rate 18 18 Blood Pressure 126/75 Pulse Oximetry 94 Oxygen Delivery Room Air 09/02/24 07:30 09/02/24 07:30 09/02/24 07:38 Temperature Pulse Rate 78 78 Respiratory Rate 20 20 Blood Pressure Pulse Oximetry 95 Oxygen Delivery Room Air 09/02/24 08:00 09/02/24 08:37 09/02/24 14:03 Temperature Pulse Rate 88 77 Respiratory Rate 20 Blood Pressure Pulse Oximetry 95 Oxygen Delivery Room Air 09/02/24 14:05 09/02/24 14:14 09/02/24 14:00 Temperature 97.7 F Pulse Rate 81 82 Respiratory Rate 20 18 Blood Pressure 124/75 Pulse Oximetry 92 96 Oxygen Delivery Room Air Intake/Output Intake/Output: Intake & Output 08/30/24 08/31/24 09/01/24 09/02/24 23:59 23:59 23:59 23:59 Intake Total 118 1580 1730 830 Output Total 200 300 Balance 118 1380 1430 830 Meds/Results Medications: Active Medications Generic Name Dose Route Start Last Admin Trade Name Freq PRN Reason Stop Dose Admin Albuterol/Ipratropium 3 ml 08/25/24 14:00 09/02/24 14:03 Ipratropium 0.5 Mg/Albuterol Sulfate 2.5 Mg Ampul.Neb 3 Ml INHALATION 3 ml Q6HRT SOLOMON Administration Amlodipine Besylate 10 mg 08/26/24 09:05 09/02/24 08:35 Amlodipine Besylate 10 Mg Tablet PO 10 mg DAILY SOLOMON Administration Aspirin 81 mg 08/27/24 09:00 09/02/24 08:35 Aspirin 81 Mg Enteric Tablet PO 81 mg QAM SOLOMON Administration Atorvastatin Calcium 20 mg 08/29/24 09:00 09/02/24 08:35 Atorvastatin 20 Mg Tablet PO 20 mg DAILY SOLOMON Administration Enoxaparin Sodium 40 mg 08/30/24 09:00 09/02/24 08:36 Enoxaparin 40 Mg/0.4 Ml Syringe SUB-Q 40 mg DAILY SOLOMON Administration Fluoxetine HCl 20 mg 08/29/24 09:00 09/02/24 08:36 Fluoxetine Hcl 20 Mg Capsule PO 20 mg DAILY SOLOMON Administration Gabapentin 100 mg 08/28/24 19:30 09/02/24 16:33 Gabapentin 100 Mg Capsule PO 100 mg TID SOLOMON Administration Hydralazine HCl 10 mg 08/25/24 10:02 08/27/24 06:52 Hydralazine Hcl 20 Mg/Ml Vial IV PUSH 10 mg Q4H PRN Administration Blood Pressure - High Ceftriaxone Sodium 1 gm in 50 mls @ 100 mls/hr 09/01/24 00:00 09/01/24 23:59 Rocephin 1 Gm/Ns 50 Ml IVPB Infused Q24H SOLOMON Infusion Labetalol HCl 20 mg 08/26/24 09:06 08/27/24 04:59 Labetalol Hcl Inj 100 Mg/20 Ml Vial IV PUSH 20 mg Q4H PRN Administration Hypertension SBP > 160 Metoprolol Tartrate 25 mg 08/26/24 21:00 09/02/24 08:37 Metoprolol Tartrate 25 Mg Tablet PO 25 mg Q12HR SOLOMON Administration Pantoprazole Sodium 40 mg 08/25/24 09:00 09/02/24 08:36 Pantoprazole 40 Mg Tablet PO 40 mg Q12HR SOLOMON Administration Fluticasone/Salmeterol 2 puff 08/25/24 08:00 09/02/24 07:33 Fluticasone/Salmeterol 115-21 Mcg Inhaler 1 Puff INHALATION 2 puff Q12HRT SOLOMON Administration Trazodone HCl 50 mg 08/29/24 21:00 09/01/24 21:14 Trazodone Hcl 50 Mg Tablet PO 50 mg HS SOLOMON Administration Radiology Results: ITS Impressions Chest X-Ray 08/25/24 06:21 IMPRESSION: 1. Mild pulmonary edema. Head CT 08/25/24 07:26 IMPRESSION: 1. Mild nonspecific cerebral white matter disease, which likely represents chronic small vessel ischemic disease. Chest/Abdomen/Pelvis CTA 08/25/24 08:42 IMPRESSION: 1. Mild pulmonary edema. 2. Small pleural effusions. 3. Mild emphysema. 4. Small pericardial effusion. 5. Enterocolitis. 6. Arterial occlusive disease. Brain MRI 08/25/24 12:28 IMPRESSION: 1. Mild nonspecific cerebral white matter disease and pontine disease, which likely represents chronic small vessel ischemic disease. Lumbar Puncture Fluoroscopy 08/26/24 11:22 IMPRESSION: 1. Successful fluoro-guided lumbar puncture. Venous Doppler Study 09/02/24 15:29 IMPRESSION: Patent bilateral lower extremity veins. No evidence of deep venous thrombosis. Labs Labs: Laboratory Results - last 24 hr 08/27/24 08/29/24 09/02/24 17:00 04:00 06:05 WBC 6.6 RBC 4.92 Hgb 14.7 Hct 44.8 MCV 91.1 MCH 29.9 MCHC 32.8 RDW 16.3 H Plt Count 205 MPV 12.3 H Sodium 135 L Potassium 3.9 Chloride 103 Carbon Dioxide 33 H Anion Gap -1 L BUN 17 Creatinine 0.90 Estim Creat Clear Calc 39 Estimated GFR > 60 Glucose 90 Calcium 8.8 Phosphorus 3.5 Erythropoietin 6.0 Albumin 3.2 L JAK2 V617F Gene TNP JAK2 V617F Exon TNP JAK2 V617F Mut Type TNP JAK2 V617F Mut Freq TNP JAK2 V617F Mut Reference Not Reportable JAK2 12-15 Nucleotide Chg TNP JAK2 12-15 Amino Acid Chg TNP
[2024-09-02] MEDS: FUROSEMIDE INJ 40 MG/4 ML VIAL 20 MG IV PUSH (18:21)
[2024-09-02] MEDS: traZODone HCL 50 MG TABLET PO (21:10)
[2024-09-03] VITALS (9 sets, daily range): BP systolic 125–142; BP diastolic 69–79; PULSE 75–90; RESP 18–20; TEMP 36.9–37.2; O2SAT 91–98
--- NOTE | 2024-09-03 02:21 | PCRCNOTE ---
Patient did not receive her 0200 updraft treatment due to being on an overnight oximetry study. Treatment to resume @ 0800.
[2024-09-03] MEDS: IPRATROPIUM 0.5 MG/ALBUTEROL SULFATE 2.5 MG AMPUL.NEB 3 ML INHALATION (07:18)
[2024-09-03] MEDS: FLUTICASONE/SALMETEROL 115-21 MCG INHALER 1 PUFF 2 PUFF INHALATION (07:22)
[2024-09-03] MEDS: GABAPENTIN 100 MG CAPSULE PO ×3 (08:30→17:05)
[2024-09-03] MEDS: PANTOPRAZOLE 40 MG TABLET PO ×2 (08:30→19:53)
[2024-09-03] MEDS: ASPIRIN 81 MG ENTERIC TABLET PO (08:30)
[2024-09-03] MEDS: FLUoxetine HCL 20 MG CAPSULE PO (08:30)
[2024-09-03] MEDS: METOPROLOL TARTRATE 25 MG TABLET PO ×2 (08:30→19:53)
[2024-09-03] MEDS: ATORVASTATIN 20 MG TABLET PO (08:30)
[2024-09-03] MEDS: ENOXAPARIN 40 MG/0.4 ML SYRINGE SUB-Q (08:31)
[2024-09-03] MEDS: amLODIPine BESYLATE 10 MG TABLET PO (08:31)
--- NOTE | 2024-09-03 11:07 | PCNFU ---
Nutrition Follow-Up Complete: Severe protein calorie malnutrition related to chronic illness as evidenced by intake <75% needs >1 month; severe muscle wasting (temporalis, clavicles, shoulders) and severe fat loss (buccal fat pads, ribs) Goal:Diet advancement Optimize PO intake when diet is advanced Pt meeting goals, New goal of 75% PO intake Pt current nutrition is Soft and bite sized level 6, regular. Nutrition recommendation: D/c Ensure as pt does not like and will not consume Last recorded weight is 42.7 kg. Bowel Motility: +BM 09/01 Labs Reviewed: alb:3.2, NA:135 Meds Noted: protonix Skin: WNL Additional Notes: Pt now on a soft and bite sized level 6, regular diet. Charted intake is 25% but pt reports great appetite and intake and eating well. She does not like the supplements and wants them d/c'd. Agree with orders, encouraged good po intake. Monitoring diet orders, weights, labs, plan of care Follow every 7 days
--- NOTE | 2024-09-03 15:20 | PM.DS ---
DS: Admitting Diagnosis Discharge Date 09/03/24 Admitting Diagnosis Altered mental status DS: Discharge Diagnosis Discharge Diagnosis (1) Altered mental status: Qualifiers: Altered mental status type: stupor Qualified Code(s): R40.1 - Stupor Code(s): R41.82 - Altered mental status, unspecified Status: Acute (2) Hypertensive urgency: Code(s): I16.0 - Hypertensive urgency Status: Acute (3) Polycythemia: Code(s): D75.1 - Secondary polycythemia Status: Acute (4) Elevated troponin: Code(s): R79.89 - Other specified abnormal findings of blood chemistry Status: Acute (5) Pericardial effusion: Code(s): I31.39 - Other pericardial effusion (noninflammatory) Status: Acute (6) Bipolar depression: Code(s): F31.9 - Bipolar disorder, unspecified Status: Acute (7) Peripheral arterial disease: Code(s): I73.9 - Peripheral vascular disease, unspecified Status: Acute (8) UTI (urinary tract infection): Code(s): N39.0 - Urinary tract infection, site not specified Status: Acute (9) Nocturnal hypoxia: Code(s): G47.34 - Idiopathic sleep related nonobstructive alveolar hypoventilation Status: Acute DS: Summary Hospital Course Reason for hospitalization: 59yo female with bipolar disorder and RA here for AMS. Please see H&P for details. Hospital Course: Patient presents with altered mental status. She has not been taking her home medications. CT of her brain was negative for any acute intracranial process. LFTs were within normal limit. UA clear. UDS was positive for cannabinoids. She mentions that she does smoke a lot of marijuana. TSH normal. Salicylate <1. Acetaminophen <10. Ethyl alcohol <10. ABG 7.47/41/71 on RA. Neurology consulted. Brain MRI with mild nonspecific cerebral white matter disease and pontine disease which likely represents chronic small vessel ischemic disease. LP was performed. Negative for bacterial meningitis. HSV PCR negative. WNV IgM negative. Influenza, RSV and COVID PCR negative. EEG with diffuse slowing without any seizure activity. On arrival to the ED blood pressure was 199/108. She received IV fluids in the ER. She became acutely hypoxic and required 4 L via nasal cannula. Received a dose of IV Lasix with excellent urine output. Patient was admitted to the ICU. Patient was started on nicardipine drip and oral agents added. Able to taper off nicardipine. Cortisol level elevated. BP stable on oral agents. Weaned to room air. LE venous doppler negative for DVT. Hgb 18.6 on admission. She has had elevated Hgb in the past. Hgb remains elevated to as high as 20.3. ABG showing no CO2 retention. JAK2 negative. Erytropoetin level normal. Renal function was normal. Renal artery stenosis moderate. Iron is normal but low TIBC. Ferritin 415. Hgb better at 14. Treated with ASA. Apnea link ordered to see if hypoxic at night and this showed that she spent 233 minuted with SpO2<88% overnight. Plan for home with O2 at night. She did not need oxygen during the day. Troponin was elevated at 0.138 but flat on repeat. Elevated Trop related to hypertensive urgency. Echo showing mild concentric LVH with EF 50%, no valvular abnormality and moderate pericardial effusion. Cardiology was consulted. Flat trend unlikely to be ACS. Cardiology consulted and recommended an ischemic evaluation as an outpatient basis. Pericardial effusion by echo but no mention of tamponade. Discussed with Cardiology and they are aware. 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 Severe stenosis right common iliac artery. Moderate stenosis of the renal arteries. Consider renal artery stenosis as the etiology of her polycythemia and HTN. Continued ASA and Lipitor. UA was consistent with UTI. UCx collected. Rocephin started. UCx growing EColi and Enterobacter. CT of the chest abdomen pelvis demonstrated cardiomegaly, emphysematous changes, bladder cystitis and/or multilevel segmental enterocolitis. She reported no diarrhea. She has been afebrile. No abd pain. Patient with generalized weakness. She was refusing SNF care. Contact guard and minimal assistance for chair transfer. Walked 50ft with minimal assistance with LOBx1. Mental status much better. ST evaluated patient and diet adjusted to soft and bite sized. Added back some of her home medications and she tolerated this well. Etiology unclear for her inital presentation. She is still unsteady on her feet but improving per therapy staff. She overall did well and was able to be discharged on 09/03/24. Status at Discharge Cognitive/behavioral status at discharge: stable Time Spent with Patient Time attestation: Total time spent providing and/or coordinating discharge services: 39 minutes Time spent: Greater than 30 minutes Exam Narrative: AF 98.5 125/69 75 18 96% ra Gen - NARD Chest - CTA bilaterally, nml RR CV - RRR S1/S2 Abd - Soft, NT/ND, Positive BS Ext - no pedal edema Psych - Nml mood and affect Skin - Warm and dry DS: Data Data Completed and Pending Completed studies during hospitalization: Pending at discharge 08/25/24 09:33 Cytology [PTH] Routine Labs on day of discharge: Labs from last 24 hours 08/29/24 04:00 Erythropoietin 6.0 Discharge Plan Discharge Attending physician on discharge: Jorge Alberto Pop Consulting providers: Henok Womack; Marylin Conway; Uriel Fair Discharging Clinician: Jorge Alberto Pop Anticipated Discharge Date/Time: 09/03/24 15:44 Patient Disposition: Home, Self-Care Activity: as tolerated Diet: regular and other - see discharge instructions Discharge Instructions: Per Care Coordination: [facility] ([phone]) for Physical and Occupational therapy has been arranged. They will call you regarding start of first visit. RN - Please fax DC orders to [phone]. We are trying to get you oxygen to wear at night when you sleep and when you take naps. You do not need oxygen while you are awake. Continue Soft and bite sized diet. Please complete your antibiotic course even if you are starting to feel well. Take precautions to avoid falls. Rise slowly from a lying or sitting position. Pause before standing or walking. Stop using all products that contain THC, marijuana, tobacco or nicotine. Contact your doctor or call 911 and come to the Emergency Room if you have shortness of breath, lightheadedness with standing or other worrisome symptoms. Avoid NSAIDs (ibuprofen, naproxen, Aleve). Tylenol is safe to take. Follow-up with your primary care provider in 1-2 weeks. Please call for appointment. Follow-up with the Robotic Technician in 2-4 weeks. Please call for an appointment Thank you for using [facility] for your health care needs. Patient Instructions: Antibiotic Form, How to Stop Smoking (DC) Patient Language: Moldovan Stand Alone Forms: General Discharge Information Follow-up/Referrals: Uriel Fair MD [Physician] - Call for Appointment Discharge Medications: New amlodipine 10 mg Tablet 10 mg PO DAILY Qty: 30 1RF aspirin 81 mg Tablet,Delayed Release (Dr/Ec) 81 mg PO QAM Qty: 30 0RF metoprolol tartrate 25 mg Tablet 25 mg PO Q12HR Qty: 60 1RF gabapentin 100 mg Capsule 100 mg PO TID Qty: 90 0RF amoxicillin-pot clavulanate 875-125 mg tablet 1 tablet PO Q12H Qty: 8 0RF levofloxacin 750 mg tablet 750 mg PO Q48H Qty: 4 0RF Continued atorvastatin 20 mg tablet 20 mg PO DAILY trazodone 50 mg tablet 50 mg PO DAILY ergocalciferol (vitamin D2) 1,250 mcg (50,000 unit) capsule 1,250 mcg PO WEEKLY fluoxetine 20 mg capsule 20 mg PO DAILY budesonide-formoterol [Symbicort] 160-4.5 mcg/actuation HFA aerosol inhaler 2 puff INHALATION Q12H omeprazole 40 mg capsule,delayed release(DR/EC) 40 mg PO BID 30 Days Qty: 60 0RF Discontinued duloxetine 60 mg capsule,delayed release(DR/EC) 60 mg PO Q12H gabapentin 600 mg tablet 600 mg PO TID ferrous sulfate [FeroSul] 325 mg (65 mg iron) tablet 325 mg PO DAILY clonazepam 0.5 mg tablet 0.5 mg PO Q12H PRN (Reason: Anxiety) Date of admission: 08/25/24 03:25 Primary Care Provider: JoseJacobo Admitting Provider: Kady Gagnon Attending physician on admission: Kady Gagnon Condition: Stable Hospitalist MIPS Heart Failure (Exclusion) Patient has history of Heart Transplant or Left Ventricular Assistive Device?: No IF YES, STOP HERE Heart Failure (Qualifier) Patient has current or prior documentation of LVEF less than or equal to 40%, or mod/servere depressed LVSF?: No IF NO, STOP HERE
--- NOTE | 2024-09-03 19:44 | PC.NURSE ---
pt's sister Hope here to transport pt home, copy of dc orders provided to her as well, she will be assisting pt with medications and reviewing them once home to ensure pt is taking correct medications, reviewed them with her in detail, answered all her questions
== END 2024-09-03 19:54 | disposition home health service (06) | DRG 199 ==
LOC: ANHED 22:04 → ANHICU 08-25 03:56 → ANH3MEDSUR 09-03 15:46 → ANHICU 09-04 08:42
PROVIDERS: Internal Medicine; Psychiatry & Neurology Neurology; Admitting Provider Internal Medicine; Emergency Provider Student in an Organized Health Care Education/Training Program; PCP Nurse Practitioner Family; Visit Provider Internal Medicine
DX: I16.1 Hypertensive emergency (principal); I67.4 Hypertensive encephalopathy; I11.0 Hypertensive heart disease with heart failure; J44.9 Chronic obstructive pulmonary disease, unspecified; I50.9 Heart failure, unspecified; F31.9 Bipolar disorder, unspecified; F41.9 Anxiety disorder, unspecified; N39.0 Urinary tract infection, site not specified; B96.20 Unspecified Escherichia coli [E. coli] as the cause of diseases classified elsewhere; B96.89 Other specified bacterial agents as the cause of diseases classified elsewhere; G62.9 Polyneuropathy, unspecified; M19.90 Unspecified osteoarthritis, unspecified site; M06.9 Rheumatoid arthritis, unspecified; E78.5 Hyperlipidemia, unspecified; M79.7 Fibromyalgia; D75.1 Secondary polycythemia; I31.39 Other pericardial effusion (noninflammatory); F17.210 Nicotine dependence, cigarettes, uncomplicated; I70.1 Atherosclerosis of renal artery; K52.9 Noninfective gastroenteritis and colitis, unspecified; Z87.11 Personal history of peptic ulcer disease
CPT/HCPCS: 36415; 36600; 62328; 70450; 70553; 71045; 71275; 74174; 80053; 80069; 80143; 80179; 80307; 81001; 81270; 82077; 82306; 82375; 82533; 82550; 82570; 82607; 82668; 82728; 82746; 82803; 82805; 82945; 82948; 83050; 83540; 83550; 83605; 83735; 83880; 83921; 83935; 84100; 84155; 84156; 84157; 84165; 84166; 84207; 84425; 84443; 84484; 85018; 85025; 85027; 85610; 85730; 86140; 86788; 87015; 87040; 87070; 87086; 87116; 87186; 87206; 87529; 87637; 87641; 87798; 88108; 89051; 92526; 92610; 93005; 93306; 93970; 94618; 94640; 94762; 95816; 97110; 97116; 97161; 97166; 97530; 97535; 99285; A9270; A9577; J0360; J0696; J1650; J1940; J2404; J3480; J7030; J7040; J7120; J7121; Q9967